=== PATIENT | female | born 1955 | race American Indian/Alaskan Native ===

== ENCOUNTER 2016-06-21 03:26 | Inpatient (IN) | payer MEDICARE ==
[2016-06-21 04:15] LABS: Basophils % (Auto) 1.1 % (0.0-1.8); Eosinophils % (Auto) 1.8 % (0.0-4.3); Hematocrit 42.6 % (30.3-42.9); Hemoglobin 14.1 gm/dl (10.1-14.3); Mean Corpuscular HGB Conc 33 % (30-34); Mean Corpuscular Hemoglobin 30 pg (28-32); Mean Corpuscular Volume 91 fl (79-97); Red Cell Distribution Width 13.6 % (13.2-15.2)
[2016-06-21] MEDS ORDERED: NITROSTAT SL ONE ×3 (04:22→04:33)
[2016-06-21 04:23] LABS: Platelet Count 227 K/mm3 (140-440)
[2016-06-21] MEDS ORDERED: ZOFRAN IV ONE ×4 (04:24→11:38)
--- NOTE | 2016-06-21 04:29 | Emergency Department Report ---
ED Chest Pain HPI - General Chief Complaint: Chest Pain Stated Complaint: CHEST PAIN Time Seen by Provider: 06/21/16 04:19 Source: patient, EMS Mode of arrival: Stretcher Limitations: No Limitations - History of Present Illness Initial Comments: 60-year-old female presents to the emergency department via EMS complaining of chest pain. Patient reports the onset of substernal chest pain at approximately midnight. Pain has been constant since onset and radiates through to her back. Pain is described as sharp in sensation. She reports associated shortness of breath, nausea, and vomiting. She also is complaining of generalized weakness. EMS gave the patient 324 mg of aspirin. There are no other complaints. MD Complaint: chest pain -: Sudden, During the night Time: 00:00 Onset: during rest Pain Location: substernal Pain Radiation: back Severity: severe Quality: sharp Consistency: constant Improves With: nothing Worsens With: nothing re: nausea, vomting, dyspnea Treatments Prior to Arrival: aspirin Aspirin use within the Past 7 Days: (0) No - Related Data Home Medications Medication Instructions Recorded Confirmed Last Taken Levothyroxine [Synthroid] 25 mcg PO QAM 06/21/16 06/21/16 06/21/16 glipiZIDE [Glucotrol] 20 mg PO BID 06/21/16 06/21/16 06/21/16 Allergies Allergy/AdvReac Type Severity Reaction Status Date / Time codeine Allergy Vomiting Verified 06/07/16 01:47 KHUSHI score - Khushi Score Age > 65: (0) No Aspirin use within the Past 7 Days: (0) No 3 or more CAD Risk Factors: (1) Yes 2 or more Angina events in past 24 hrs: (1) Yes Known CAD with more than 50% Stenosis: (0) No Elevated Cardiac Markers: (0) No ST Deviation Greater than 0.5mm: (0) No KHUSHI Score: 2 ED Review of Systems ROS: Stated complaint: CHEST PAIN Other details as noted in HPI Comment: All other systems reviewed and negative Constitutional: weakness Respiratory: shortness of breath Cardiovascular: chest pain Gastrointestinal: nausea, vomiting ED Past Medical Hx - Past Medical History Previous Medical History?: Yes Hx Hypertension: Yes Hx Congestive Heart Failure: No Hx Diabetes: Yes Hx GERD: Yes Hx Arthritis: Yes Hx Asthma: No Hx COPD: No Additional medical history: THYROID - Surgical History Past Surgical History?: Yes Hx Cholecystectomy: Yes - Family History Family history: no significant - Social History Smoking Status: Unknown if ever smoked Substance Use Type: None - Medications Home Medications: Home Medications Medication Instructions Recorded Confirmed Last Taken Type Levothyroxine [Synthroid] 25 mcg PO QAM 06/21/16 06/21/16 06/21/16 History glipiZIDE [Glucotrol] 20 mg PO BID 06/21/16 06/21/16 06/21/16 History ED Physical Exam - General Limitations: No Limitations General appearance: alert, in distress (mild distress secondary to pain and nausea) - Head Head exam: Present: atraumatic, normocephalic - Eye Eye exam: Present: normal appearance, PERRL, EOMI - ENT ENT exam: Present: normal exam, normal orophraynx, mucous membranes moist - Neck Neck exam: Present: normal inspection, full ROM. Absent: tenderness - Respiratory Respiratory exam: Present: normal lung sounds bilaterally. Absent: respiratory distress - Cardiovascular Cardiovascular Exam: Present: regular rate, normal rhythm, normal heart sounds - GI/Abdominal GI/Abdominal exam: Present: soft, normal bowel sounds. Absent: distended, tenderness - Extremities Exam Extremities exam: Present: normal inspection, full ROM. Absent: tenderness - Back Exam Back exam: Present: normal inspection, full ROM. Absent: tenderness - Neurological Exam Neurological exam: Present: alert, oriented X3. Absent: motor sensory deficit - Skin Skin exam: Present: warm, dry, intact ED Course Vital Signs 06/21/16 06/21/16 06/21/16 03:36 03:40 03:50 Pulse Rate 54 L 60 66 Respiratory 20 14 Rate Blood Pressure 162/82 162/82 Blood Pressure [Right] O2 Sat by Pulse 100 100 Oximetry 06/21/16 06/21/16 06/21/16 04:01 04:10 04:20 Pulse Rate 62 62 71 Respiratory 15 15 25 H Rate Blood Pressure 154/57 162/82 163/79 Blood Pressure [Right] O2 Sat by Pulse 100 100 100 Oximetry 06/21/16 06/21/16 06/21/16 04:30 04:40 04:46 Pulse Rate 71 69 62 Respiratory 19 14 20 Rate Blood Pressure 130/64 130/64 Blood Pressure 130/64 [Right] O2 Sat by Pulse 100 100 100 Oximetry 06/21/16 06/21/16 04:50 05:00 Pulse Rate 69 79 Respiratory 17 20 Rate Blood Pressure 138/47 145/32 Blood Pressure [Right] O2 Sat by Pulse 100 100 Oximetry - Reevaluation(s) Reevaluation #1: 06/21/16 05:24 Old records reviewed including previous admission for similar complaints. Patient underwent a nuclear stress test at that time, which was read as negative. ED Medical Decision Making - Lab Data Result diagrams: 06/21/16 03:57 06/21/16 03:57 - EKG Data -: EKG Interpreted by Me EKG shows normal: sinus rhythm, axis, intervals, QRS complexes Rate: bradycardia - EKG Data When compared to previous EKG there are: changes noted Interpretation: other (flipped T waves in leads 1, aVL, V1, V2, and V3. These changes are new compared to ECG dated 06/07/2016.) - Radiology Data Radiology results: image reviewed interpreted by me: Chest x-ray shows no acute cardiopulmonary abnormality. - Medical Decision Making Lab and imaging results reviewed and discussed with the patient. Patient is continuing to have chest pain despite supplemental nitroglycerin. Giving IV morphine. Due to the patient's persistent pain and new EKG changes, I have spoken with Dr. Hodgson, radiology. Patient is to be admitted by the hospitalist. - Differential Diagnosis ACS, atypical chest pain, GERD Critical care attestation.: If time is entered above; I have spent that time in minutes in the direct care of this critically ill patient, excluding procedure time. ED Disposition Clinical Impression: Chest pain Qualifiers: Chest pain type: precordial chest pain Qualified Code(s): R07.2 - Precordial pain Disposition: OP ADMITTED IP TO THIS HOSP Is pt being admited?: Yes Condition: Stable Instructions: Chest Pain (ED) Referrals: PRIMARY CARE, [Primary Care Provider] - 3-5 Days Time of Disposition: 05:25
[2016-06-21 04:34] LABS: Anion Gap 22 mmol/L; Blood Urea Nitrogen 17 mg/dL (7-17); Calcium 9.1 mg/dL (8.4-10.2); Carbon Dioxide 22 mmol/L (22-30); Chloride 99.5 mmol/L (98-107); Glucose 308 mg/dL (65-100); Potassium 4.1 mmol/L (3.6-5.0); Sodium 139 mmol/L (137-145)
[2016-06-21] MEDS ORDERED: MORPHINE IV ONE ×2 (05:06)
[2016-06-21] MEDS ORDERED: MILK OF MAGNESIA PO PRN (06:02)
[2016-06-21] MEDS ORDERED: MORPHINE IV PRN (06:02)
[2016-06-21] MEDS ORDERED: D50W (25GM) IV PRN (06:02)
[2016-06-21] MEDS ORDERED: DULCOLAX PR PRN (06:02)
[2016-06-21] MEDS ORDERED: TYLENOL PO PRN (06:02)
[2016-06-21] MEDS ORDERED: ZOFRAN IV PRN (06:02)
--- NOTE | 2016-06-21 06:05 | Admit Criteria Form ---
Admission Criteria Documentation: CHEST PAIN Clinical Indications for Admission to Inpatient Care (Place 'X' for any and all applicable criteria): Admission is indicated for chest pain and ANY ONE of the following(1)(2)(3)(4)(5 ): [ ]I. Angina with acute coronary syndrome (Also use Myocardial Infarction or Angina guideline) [ ]II. Hemodynamic instability [X ]III. Angina needing acute intervention as indicated by ALL of the following (11)(12): [ X]a) Unstable angina is present as indicated by angina that is ANY ONE of the following: [ ]i) New onset [ ]ii) Nocturnal [X ]iii) Prolonged at rest [ ]iv) Progressive [X ]b) Angina warrants acute intervention as indicated by ANY ONE of the following: [ ]i) Recurrent angina (e.g, not responding as previously to treatment) [ ]ii) Angina at rest or with low-level activities despite initial medical therapy [ ]iii) New or presumably new ST-segment depression on ECG [ ]iv) Signs or symptoms of heart failure (eg, dyspnea, pulmonary edema) [ ]v) New or worsening mitral regurgitation [ ]vi) Hemodynamic instability [ ]vii) Dangerous arrhythmia (eg, sustained ventricular tachycardia) [ ]viii) History of percutaneous coronary intervention within 6 months [ ]ix) History of coronary artery bypass graft surgery [ ]x) KHUSHI risk score of 2 or greater[A] [X ]xi) History of Diabetes(14) [ ]xii) High-risk cardiac ischemia findings on noninvasive testing (e.g, echocardiogram, treadmill testing, nuclear scan) [ ]xiii) Chronic renal insufficiency (ie, estimated GFR less than 60 mL/min/1.732m) [ ]xiv) Left ventricular ejection fraction less than 40% [ ]IV. Evidence of WA (eg, cardiac biomarkers positive, ST-segment elevation on ECG) also use Myocardial Infarction Criteria Form. [ ]V. Pulmonary edema [ ]. Respiratory distress [ ]VII. Chest pain indicative of serious diagnosis other than coronary artery disease (eg, aortic dissection) [ ]VIII. Contraindications and/or Inappropriate clinical situations for Observational Care in patients with Chest Pain, when ANY ONE of the following is required: [ ]a) Patient with risk factor for pulmonary embolism, acute coronary syndrome and myocardial infarction (18) [ ]b) Patient with Pulmonary embolism require an average LOS of 4.3 days, therefore emergency department observation management is inappropriate 18,23 [ ]c) Painful condition/s in the elderly, have the highest rate of recidivism after emergency department observation management (10.8%) 20,21,22 [ ]d) Elevated cardiac biomarker requires intensive and exhaustive care (19) [ ]IX. General contraindications and/or Inappropriate clinical situations for Observational Care in patients with Chest Pain, when ANY ONE of the following is required: [ ]a) Prediction of prolongation of LOS based on ANY ONE of the following may be considered as a contraindication for observational care 2, 3, 4, 5, 6, 7, 8, 9, 10, 11 [ ]i) Age > 65 yrs. [ ]ii) Patient arriving by ambulance [ ]iii) Patient with high acuity [ ]iv) Patient requiring vital sign monitoring [ ]v) Patient on IV medication [ ]b) Systolic blood pressures 180mmHg 3,12 [ ]c) Patient with altered mental status including delirium and other alteration of consciousness, (3) [ ]d) Patient whose discharge disposition will be to a fdc home or rehabilitation home should not be managed in Emergency Department Observation Unit. CMS rule requires 3 days hospital stay before such placement. 3,13 [ ]e) Patient with failure to thrive due to broad array of etiologies 3,16,17 [ ]f) Inability to ambulate 3,14 Extended stay beyond goal length of stay may be needed for (1)(28): [ ]a) Specific condition diagnosed after evaluation (eg, pulmonary embolism, aortic dissection) [ ]b) Unstable angina [ ]c) Continued suspicion of acute coronary syndrome with inability to complete needed cardiac evaluation (eg, patient clinically unable to undergo stress testing) [ ]d) Myocardial infarction (Contents from ANGINA and CHEST PAIN clinical indications for admission to inpatient care have been integrated in this form) The original [employer] content created by [employer] has been revised. The portions of the content which have been revised are identified through the use of italic text or in bold, and [email or web address] has neither reviewed nor approved the modified material. All other unmodified content is copyright [employer]. Please see references footnoted in the original [email or web address] edition 2016 Admission Criteria Met: Yes
--- NOTE | 2016-06-21 06:08 | History and Physical Report ---
History of Present Illness Date of examination: 06/21/16 History of present illness: A 60-year-old woman with history of hypertension, diabetes, tobacco abuse comes emergency room with complaints of chest pain. Pain is in the epigastric area which he describes a dull, constant, intensity 7/10, radiating to the back. She cannot identify exacerbating or relieving factors. Admits to multiple episodes of nausea vomiting, shortness breath, diaphoresis or palpitation. Patient had a stress test in May which was negative Patient denies cough, abdominal pain, hematochezia, dysuria, frequency, focal weakness, dysarthria, fever chills, polydipsia polyuria, hot or cold intolerance , easy bruisability, or rash or bleeding from mucosal membrane, rhinorrhea, epistaxis, earache, tinnitus, blurry vision, eye discharge, anxiety, depression. Other review of systems negative PAST SURGICAL HISTORY: Cholecystectomy SOCIAL HISTORY: Smoke a pack a day, social use, no drugs FAMILY HISTORY: Hypertension Medications and Allergies Allergies Allergy/AdvReac Type Severity Reaction Status Date / Time codeine Allergy Vomiting Verified 06/07/16 01:47 Home Medications Medication Instructions Recorded Confirmed Last Taken Type Levothyroxine [Synthroid] 25 mcg PO QAM 06/21/16 06/21/16 06/21/16 History glipiZIDE [Glucotrol] 20 mg PO BID 06/21/16 06/21/16 06/21/16 History Exam - Physical Exam Narrative exam: Gen. appearance: Patient lying in bed, no apparent distress HEENT: Normocephalic, atraumatic, pupils equally round and reactive to light, extraocular movement intact, and no sclericterus,. No JVD or thyromegaly or nodule,neck supple, no carotid bruit ,mucous membranes moist, no exudate or erythema Heart: S1, S2, regular rate and rhythm Lungs: Clear to auscultation bilaterally, breathing comfortable Abdomen: Positive bowel sounds, nontender, nondistended, no organomegaly Extremity: No edema, cyanosis, clubbing Skin: No rash, nodules, warm, dry Neuro: Oriented 3, cranial nerves II-12 intact, speech is fluent, motor and sensory intact - Constitutional Vitals: Temp Pulse Resp BP Pulse Ox 79 20 145/32 100 06/21/16 05:00 06/21/16 05:00 06/21/16 05:00 06/21/16 05:00 Results - Labs CBC & Chem 7: 06/24/16 04:49 06/24/16 04:49 Labs: Abnormal lab results 06/21/16 06/21/16 Range/Units 03:57 03:57 [place] % (Auto) 8.9 H (0.0-7.3) % [place] # 1.0 H (0.0-0.8) K/mm3 Creatinine 0.5 L (0.7-1.2) mg/dL Glucose 308 H (65-100) mg/dL - Imaging and Cardiology EKG: image reviewed Chest x-ray: image reviewed Assessment and Plan Unstable angina Hypertension Diabetes Admits medicine Check cardiac enzymes, consult cardiology Start aspirin, IV morphine, IV fluids, DVT prophylaxis
[2016-06-21] MEDS ORDERED: NACL 0.45% 1000 ML 1,000 ML IV SCH (07:00)
--- NOTE | 2016-06-21 09:14 | XRay Report ---
Single view chest: Compared to 06/07/16. History: Chest pain. Findings: Normal cardiomediastinal silhouette. Trachea is midline. No consolidation, pneumothorax or pleural effusion. Impression: No acute cardiopulmonary findings.
[2016-06-21] MEDS: NOVOLOG SUB-Q SCH ×4 (09:18→21:54)
[2016-06-21] MEDS: LOVENOX SUB-Q SCH (11:03)
--- NOTE | 2016-06-21 11:59 | Consultation ---
History of Present Illness Consult date: 06/21/16 Requesting physician: JUDITH THOMAS Consult reason: chest pain History of present illness: The patient is a 60 year old female with a history of hypertension, diabetes, hyperlipidemia, tobacco use who presented with complaints of substernal chest pain with radiation to her back that started last night around midnight. She describes the pain as "pressure." Approximately one hour after the pain started , she developed severe nausea and vomiting. She also reports some diarrhea. Troponin negative x 2. She was just admitted to [facility] 2 weeks ago for chest pain and had a negative stress test. Echo showed EF 55-60%. Past History Past Medical History: arthritis, diabetes, hypertension, hyperlipidemia Past Surgical History: cholecystectomy Social history: smoking (1 PPD). denies: alcohol abuse, prescription drug abuse , IV drug use, full code Family history: CAD Medications and Allergies Allergies Allergy/AdvReac Type Severity Reaction Status Date / Time codeine Allergy Vomiting Verified 06/07/16 01:47 Home Medications Medication Instructions Recorded Confirmed Last Taken Type Levothyroxine [Synthroid] 25 mcg PO QAM 06/21/16 06/21/16 06/21/16 History glipiZIDE [Glucotrol] 20 mg PO BID 06/21/16 06/21/16 06/21/16 History Active Meds: Active Medications Acetaminophen (Tylenol) 650 mg PO Q4H PRN PRN Reason: Pain MILD(1-3)/Fever >100.5/THOMPSON Aspirin (Aspirin) 325 mg PO QDAY MAHOGANY Bisacodyl (Dulcolax) 10 mg MD QDAY PRN PRN Reason: Constipation unrelieved by MOM Dextrose (D50w (25gm)) 50 ml IV PRN PRN PRN Reason: Hypoglycemia Enoxaparin Sodium (Lovenox) 40 mg SUB-Q QDAY MAHOGANY Last Admin: 06/21/16 11:03 Dose: 40 mg Sodium Chloride (Nacl 0.45% 1000 Ml) 1,000 mls @ 75 mls/hr IV DIRECT MAHOGANY Last Admin: 06/21/16 08:59 Dose: 75 mls/hr Insulin Aspart (Novolog) 0 units SUB-Q ACHS MAHOGANY PRN Reason: Protocol Last Admin: 06/21/16 11:53 Dose: 6 units Magnesium Hydroxide (Milk Of Magnesia) 30 ml PO Q4H PRN PRN Reason: Constipation Morphine Sulfate (Morphine) 2 mg IV Q4H PRN PRN Reason: Pain, Moderate (4-6) Ondansetron HCl (Zofran) 4 mg IV Q8H PRN PRN Reason: N/V unrelieved by Reglan Review of Systems Constitutional: no fever, no chills Ears, nose, mouth and throat: no nasal congestion, no nasal discharge, no sinus pressure Cardiovascular: chest pain, shortness of breath, no palpitations Respiratory: shortness of breath, no cough, no congestion, no wheezing Gastrointestinal: nausea, vomiting, diarrhea, no abdominal pain, no constipation Genitourinary Female: no dysuria, no urgency Musculoskeletal: no neck stiffness, no neck pain, no myalgias Integumentary: no rash, no pruritis Neurological: no parathesias, no numbness, no tingling, no headaches Endocrine: no cold intolerance, no heat intolerance Hematologic/Lymphatic: no easy bruising, no easy bleeding Allergic/Immunologic: no urticaria, no wheezing Physical Examination Last Vital Signs Temp 98.0 F 06/21/16 09:05 Pulse 55 L 06/21/16 12:22 Resp 20 06/21/16 12:22 BP 164/77 06/21/16 12:22 Pulse Ox 100 06/21/16 12:22 General appearance: no acute distress HEENT: Positive: PERRL, Normocephaly, Mucus Membranes Moist Neck: Positive: neck supple, trachea midline Cardiac: Positive: Reg Rate and Rhythm, S1/S2 Lungs: Positive: clear to auscultation Neuro: Positive: Grossly Intact Abdomen: Positive: Soft, Active Bowel Sounds. Negative: Tender Skin: Positive: Clear. Negative: Rash Extremities: Present: normal. Absent: edema Results 06/21/16 03:57 06/21/16 03:57 - Imaging and Cardiology Echo: report reviewed (05/2016: EF 55-60%) EKG: image reviewed EKG interpretations - Telemetry EKG Rhythm: Sinus Rhythm - EKG Sinus rhythms and dysrhythmias: sinus rhythm Repolarization changes or abnormalities: ST or T wave suggestive of ischemia Assessment and Plan Chest pain troponin negative x 2 EKG: inverted T waves in leads 1, aVL, V1, V2, and V3, will repeat Echo 05/2016: EF 55-60% stress MPI 05/2016: no ischemia, EF 62% Nausea and vomiting continue antiemetics Hypertension Diabetes Hyperlipidemia Tobacco abuse Although pt. had a negative stress test 2 months ago, given recurrent chest pain and EKG changes, will tentatively plan for left heart cath on Fri., . The patient has been seen in conjunction with Dr. Coon who agrees with the assessment and plan of care. Thank you Dr. Valle for allowing us to participate in the care of this patient.
[2016-06-21 12:53] LABS: Creatine Kinase MB 11.4 ng/mL (0.0-4.0)
[2016-06-21] MEDS: REGLAN IV PRN (13:04)
[2016-06-21] MEDS: PROTONIX IV SCH ×2 (14:44→21:54)
--- NOTE | 2016-06-21 15:54 | Event Note ---
Date: 06/21/16 Patient seen and examined, admitted this morning with chest pain along with intractable nausea and vomiting. We'll continue current plan and management as dictated in H&P. Plan for cardiac cath on Friday.
--- NOTE | 2016-06-21 16:33 | Event Note ---
Date: 06/21/16 Repeat EKG shows resolution of anterior changes and new inverted t-waves in inferolateral leads. No chest pain currently. If nausea and vomiting improves, may consider starting beta tiffany and oral nitrates.
[2016-06-21 16:40] LABS: Creatine Kinase MB 69.6 ng/mL (0.0-4.0)
[2016-06-21] MEDS: D5W/NS W/KCL 20MEQ 20 MEQ/1,000 ML BAG IV SCH (17:34)
[2016-06-21] MEDS: AMBIEN PO PRN (21:53)
[2016-06-22 05:33] LABS: Basophils % (Auto) 0.4 % (0.0-1.8); Eosinophils % (Auto) 0.1 % (0.0-4.3); Hematocrit 39.9 % (30.3-42.9); Hemoglobin 13.2 gm/dl (10.1-14.3); Mean Corpuscular HGB Conc 33 % (30-34); Mean Corpuscular Hemoglobin 30 pg (28-32); Mean Corpuscular Volume 92 fl (79-97); Platelet Count 306 K/mm3 (140-440); Red Blood Count 4.35 M/mm3 (3.65-5.03); Red Cell Distribution Width 13.9 % (13.2-15.2); White Blood Count 14.9 K/mm3 (4.5-11.0)
[2016-06-22 05:55] LABS: Anion Gap 20 mmol/L; Blood Urea Nitrogen 11 mg/dL (7-17); Calcium 8.6 mg/dL (8.4-10.2); Carbon Dioxide 20 mmol/L (22-30); Chloride 99.2 mmol/L (98-107); Glucose 262 mg/dL (65-100); Sodium 135 mmol/L (137-145)
[2016-06-22] MEDS: D5W/NS W/KCL 20MEQ 20 MEQ/1,000 ML BAG IV SCH (06:44)
[2016-06-22] MEDS: REGLAN IV PRN ×2 (06:44→14:26)
[2016-06-22] MEDS: LOVENOX SUB-Q SCH (09:24)
[2016-06-22] MEDS: ASPIRIN PO SCH (09:24)
[2016-06-22] MEDS: PROTONIX IV SCH ×2 (09:25→22:29)
[2016-06-22] MEDS ORDERED: HEPARIN 10,000 UNITS/10 ML IV ONE (10:14)
--- NOTE | 2016-06-22 10:39 | Progress Note ---
Assessment and Plan This is a 60 AAF: NSTEMI Echo 05/2016: EF 55-60% stress MPI 05/2016: no ischemia, EF 62% cont asa add heparin gtt, bb, statin cp-free and asx at this time Hypertension Diabetes Hyperlipidemia Tobacco abuse [facility] for friday morning Risks, benefits, and alternatives discussed at length with patient. She would like to proceed. Subjective Date of service: 06/22/16 Interval history: no complaints today no cp, sob, n/v feels better Objective Vital Signs Temp Pulse Pulse Resp BP Pulse Ox 06/22/16 10:00 99 06/22/16 06:03 68 06/22/16 06:00 99 F 65 20 156/68 97 06/22/16 00:53 99.2 F 69 21 141/65 100 06/21/16 20:00 99.1 F 67 20 166/71 98 06/21/16 19:36 98 06/21/16 17:52 100 06/21/16 16:00 98.5 F 68 20 186/81 100 06/21/16 12:22 55 L 20 164/77 100 06/21/16 11:30 59 L 18 150/69 100 - Physical Examination HEENT: Positive: PERRL, Normocephaly, Mucus Membranes Moist Neck: Positive: neck supple, trachea midline Neuro: Positive: Grossly Intact Abdomen: Positive: Soft, Active Bowel Sounds. Negative: Tender Skin: Positive: Clear. Negative: Rash Extremities: Present: normal. Absent: edema - Labs and Meds Cardiac Enzymes 06/21/16 06/21/16 Range/Units 09:16 16:05 CK-MB (CK-2) 11.4 H 69.6 H (0.0-4.0) ng/mL Lipids 06/21/16 Range/Units 16:05 Triglycerides 121 (2-149) mg/dL Cholesterol 194 (50-199) mg/dL HDL Cholesterol 47 (40-59) mg/dL Cholesterol/HDL Ratio 4.12 % CBC 06/22/16 Range/Units 04:31 WBC 14.9 H (4.5-11.0) K/mm3 RBC 4.35 (3.65-5.03) M/mm3 Hgb 13.2 (10.1-14.3) gm/dl Hct 39.9 (30.3-42.9) % Plt Count 306 (140-440) K/mm3 Lymph # 2.1 (1.2-5.4) K/mm3 [place] # 1.7 H (0.0-0.8) K/mm3 Eos # 0.0 (0.0-0.4) K/mm3 Baso # 0.1 (0.0-0.1) K/mm3 Comprehensive Metabolic Panel 06/22/16 Range/Units 04:31 Sodium 135 L (137-145) mmol/L Potassium 4.0 (3.6-5.0) mmol/L Chloride 99.2 (98-107) mmol/L Carbon Dioxide 20 L (22-30) mmol/L BUN 11 (7-17) mg/dL Creatinine 0.5 L (0.7-1.2) mg/dL Glucose 262 H (65-100) mg/dL Calcium 8.6 (8.4-10.2) mg/dL - Imaging and Cardiology EKG: image reviewed Echo: report reviewed (05/2016: EF 55-60%) - EKG Sinus rhythms and dysrhythmias: sinus rhythm Repolarization changes or abnormalities: ST or T wave suggestive of ischemia
[2016-06-22 10:48] LABS: Hematocrit 38.4 % (30.3-42.9); Hemoglobin 12.9 gm/dl (10.1-14.3)
[2016-06-22 10:58] LABS: INR 1.06 (0.87-1.13)
[2016-06-22 10:59] LABS: Partial Thromboplastin Time 32.6 Sec. (24.2-36.6)
[2016-06-22] MEDS: HEPARIN/ 0.45% NACL-25,000 UNIT/500 ML 25,000 UNIT/500 ML BAG IV SCH ×2 (11:26→18:43)
[2016-06-22] MEDS: NOVOLOG SUB-Q SCH ×2 (15:25→22:28)
[2016-06-22] MEDS: ZESTRIL PO SCH (15:54)
--- NOTE | 2016-06-22 18:18 | Progress Note ---
Assessment and Plan Assessment and plan: NSTEMI * placed on heparin drip * cont to monitor troponin * placed on aspirin, statin and betablocker * plan for cardiac cath today Hypertension * cont to monitor * on metoprolol and lisinopril DM type 2 * cont on SSI * clear liquid diet now N/V * could be due to gastroparesis * clear liquid for now * prn zofran, will add carafate and reglan History Interval history: pt seen and examined, no chest pain c/o N/V, no abdominal pain Hospitalist Physical - Constitutional Vitals: Temp Pulse Resp BP Pulse Ox 97.6 F 68 18 168/71 97 06/22/16 16:22 06/22/16 16:22 06/22/16 16:22 06/22/16 16:22 06/22/16 16:22 General appearance: Present: mild distress - EENT Eyes: Present: EOM intact ENT: hearing intact, clear oral mucosa, dentition normal - Neck Neck: Present: supple, normal ROM - Respiratory Respiratory effort: normal Respiratory: bilateral: CTA - Cardiovascular Rhythm: regular Heart Sounds: Present: S1 & S2 - Extremities Extremities: no ischemia, No edema - Abdominal General gastrointestinal: soft, non-tender, non-distended, normal bowel sounds - Integumentary Integumentary: Present: warm, dry - Psychiatric Psychiatric: appropriate mood/affect, intact judgment & insight - Neurologic Neurologic: no focal deficits, moves all extremities Results - Labs CBC & Chem 7: 06/22/16 10:34 06/22/16 04:31 Labs: Laboratory Last Values WBC 14.9 K/mm3 (4.5-11.0) H 06/22/16 04:31 RBC 4.35 M/mm3 (3.65-5.03) 06/22/16 04:31 Hgb 12.9 gm/dl (10.1-14.3) 06/22/16 10:34 Hct 38.4 % (30.3-42.9) 06/22/16 10:34 MCV 92 fl (79-97) 06/22/16 04:31 MCH 30 pg (28-32) 06/22/16 04:31 MCHC 33 % (30-34) 06/22/16 04:31 RDW 13.9 % (13.2-15.2) 06/22/16 04:31 Plt Count 301 K/mm3 (140-440) 06/22/16 10:34 Lymph % (Auto) 14.3 % (13.4-35.0) 06/22/16 04:31 [place] % (Auto) 11.7 % (0.0-7.3) H 06/22/16 04:31 Eos % (Auto) 0.1 % (0.0-4.3) 06/22/16 04:31 Baso % (Auto) 0.4 % (0.0-1.8) 06/22/16 04:31 Lymph # 2.1 K/mm3 (1.2-5.4) 06/22/16 04:31 [place] # 1.7 K/mm3 (0.0-0.8) H 06/22/16 04:31 Eos # 0.0 K/mm3 (0.0-0.4) 06/22/16 04:31 Baso # 0.1 K/mm3 (0.0-0.1) 06/22/16 04:31 Seg Neutrophils % 73.5 % (40.0-70.0) H 06/22/16 04:31 Seg Neutrophils # 10.9 K/mm3 (1.8-7.7) H 06/22/16 04:31 PT 13.7 Sec. (12.2-14.9) 06/22/16 10:38 INR 1.06 (0.87-1.13) 06/22/16 10:38 APTT 32.6 Sec. (24.2-36.6) 06/22/16 10:38 Heparin Anti-Xa Level 0.87 U.I./ml (0.3-0.7) H 06/22/16 17:12 Sodium 135 mmol/L (137-145) L 06/22/16 04:31 Potassium 4.0 mmol/L (3.6-5.0) 06/22/16 04:31 Chloride 99.2 mmol/L (98-107) 06/22/16 04:31 Carbon Dioxide 20 mmol/L (22-30) L 06/22/16 04:31 Anion Gap 20 mmol/L 06/22/16 04:31 BUN 11 mg/dL (7-17) 06/22/16 04:31 Creatinine 0.5 mg/dL (0.7-1.2) L 06/22/16 04:31 Estimated GFR > 60 ml/min 06/22/16 04:31 BUN/Creatinine Ratio 22.00 % 06/22/16 04:31 Glucose 262 mg/dL (65-100) H 06/22/16 04:31 POC Glucose 247 (70-105) H 06/22/16 11:46 Calcium 8.6 mg/dL (8.4-10.2) 06/22/16 04:31 Total Creatine Kinase 555 units/L (30-135) H 06/21/16 16:05 CK-MB (CK-2) 69.6 ng/mL (0.0-4.0) H 06/21/16 16:05 CK-MB (CK-2) Rel Index 12.5 (0-4) H 06/21/16 16:05 Troponin T 0.791 ng/mL (0.00-0.029) H* 06/22/16 17:12 Triglycerides 121 mg/dL (2-149) 06/21/16 16:05 Cholesterol 194 mg/dL (50-199) 06/21/16 16:05 LDL Cholesterol Direct 123 mg/dL (50-130) 06/21/16 16:05 HDL Cholesterol 47 mg/dL (40-59) 06/21/16 16:05 Cholesterol/HDL Ratio 4.12 % 06/21/16 16:05
[2016-06-22] MEDS ORDERED: COREG PO SCH (22:00)
[2016-06-23] MEDS: AMBIEN PO PRN ×2 (01:08→22:46)
[2016-06-23] MEDS: REGLAN IV PRN (01:08)
[2016-06-23] MEDS ORDERED: LOPRESSOR PO SCH (10:00)
[2016-06-23] MEDS: PROTONIX IV SCH ×2 (10:19→22:46)
[2016-06-23] MEDS: ASPIRIN PO SCH (10:19)
--- NOTE | 2016-06-23 10:32 | Progress Note ---
Assessment and Plan This is a 60 AAF: NSTEMI Echo 05/2016: EF 55-60% stress MPI 05/2016: no ischemia, EF 62% cont asa, heparin gtt, bb, statin cp-free and asx at this time Hypertension Diabetes Hyperlipidemia Tobacco abuse [facility] for friday morning Risks, benefits, and alternatives discussed at length with patient. She would like to proceed. Subjective Date of service: 06/23/16 Interval history: feels well no cp Objective Vital Signs Temp Pulse Pulse Pulse Resp BP BP 06/23/16 08:00 97.5 F L 58 L 20 06/23/16 06:53 98.7 F 60 20 06/22/16 22:00 59 L 06/22/16 20:00 98.1 F 69 18 06/22/16 16:22 97.6 F 68 18 06/22/16 15:54 180/78 06/22/16 11:07 98.6 F 71 16 196/85 06/22/16 10:00 60 60 20 BP Pulse Ox 06/23/16 08:00 121/64 99 06/23/16 06:53 125/71 06/22/16 22:00 06/22/16 20:00 149/73 98 06/22/16 16:22 168/71 97 06/22/16 15:54 06/22/16 11:07 99 06/22/16 10:00 99 - Physical Examination HEENT: Positive: PERRL, Normocephaly, Mucus Membranes Moist Neck: Positive: neck supple, trachea midline Neuro: Positive: Grossly Intact Abdomen: Positive: Soft, Active Bowel Sounds. Negative: Tender Skin: Positive: Clear. Negative: Rash Extremities: Present: normal. Absent: edema - Labs and Meds Coagulation 06/22/16 Range/Units 10:38 PT 13.7 (12.2-14.9) Sec. INR 1.06 (0.87-1.13) APTT 32.6 (24.2-36.6) Sec. CBC 06/22/16 Range/Units 10:34 Hgb 12.9 (10.1-14.3) gm/dl Hct 38.4 (30.3-42.9) % Plt Count 301 (140-440) K/mm3 - Imaging and Cardiology EKG: image reviewed Echo: report reviewed (05/2016: EF 55-60%) - EKG Sinus rhythms and dysrhythmias: sinus rhythm Repolarization changes or abnormalities: ST or T wave suggestive of ischemia
[2016-06-23] MEDS: NOVOLOG SUB-Q SCH ×5 (12:55→23:01)
[2016-06-23] MEDS: ZESTRIL PO SCH (13:18)
[2016-06-23] MEDS: D5W/NS W/KCL 20MEQ 20 MEQ/1,000 ML BAG IV SCH (13:19)
--- NOTE | 2016-06-23 14:54 | Progress Note ---
Assessment and Plan Assessment and plan: NSTEMI * placed on heparin drip * cont to monitor troponin * placed on aspirin, statin and betablocker * plan for cardiac cath tomorrow Hypertension * cont to monitor * on metoprolol and lisinopril DM type 2 * cont on SSI * advance to ADA diet N/V * could be due to gastroparesis * advance diet * prn zofran, cont protonix carafate and reglan History Interval history: pt seen and examined, no chest pain N/V resolved, no abdominal pain able to tolerate clear liquid diet Hospitalist Physical - Physical exam Narrative exam: General appearance: Present: mild distress - EENT Eyes: Present: EOM intact ENT: hearing intact, clear oral mucosa, dentition normal - Neck Neck: Present: supple, normal ROM - Respiratory Respiratory effort: normal Respiratory: bilateral: CTA - Cardiovascular Rhythm: regular Heart Sounds: Present: S1 & S2 - Extremities Extremities: no ischemia, No edema - Abdominal General gastrointestinal: soft, non-tender, non-distended, normal bowel sounds - Integumentary Integumentary: Present: warm, dry - Psychiatric Psychiatric: appropriate mood/affect, intact judgment & insight - Neurologic Neurologic: no focal deficits, moves all extremities - Constitutional Vitals: Temp Pulse Resp BP Pulse Ox 97.5 F L 58 L 20 121/64 99 06/23/16 08:00 06/23/16 08:00 06/23/16 08:00 06/23/16 08:00 06/23/16 08:00 General appearance: Present: mild distress Results - Labs CBC & Chem 7: 06/22/16 10:34 06/22/16 04:31 Labs: Laboratory Last Values WBC 14.9 K/mm3 (4.5-11.0) H 06/22/16 04:31 RBC 4.35 M/mm3 (3.65-5.03) 06/22/16 04:31 Hgb 12.9 gm/dl (10.1-14.3) 06/22/16 10:34 Hct 38.4 % (30.3-42.9) 06/22/16 10:34 MCV 92 fl (79-97) 06/22/16 04:31 MCH 30 pg (28-32) 06/22/16 04:31 MCHC 33 % (30-34) 06/22/16 04:31 RDW 13.9 % (13.2-15.2) 06/22/16 04:31 Plt Count 301 K/mm3 (140-440) 06/22/16 10:34 Lymph % (Auto) 14.3 % (13.4-35.0) 06/22/16 04:31 [place] % (Auto) 11.7 % (0.0-7.3) H 06/22/16 04:31 Eos % (Auto) 0.1 % (0.0-4.3) 06/22/16 04:31 Baso % (Auto) 0.4 % (0.0-1.8) 06/22/16 04:31 Lymph # 2.1 K/mm3 (1.2-5.4) 06/22/16 04:31 [place] # 1.7 K/mm3 (0.0-0.8) H 06/22/16 04:31 Eos # 0.0 K/mm3 (0.0-0.4) 06/22/16 04:31 Baso # 0.1 K/mm3 (0.0-0.1) 06/22/16 04:31 Seg Neutrophils % 73.5 % (40.0-70.0) H 06/22/16 04:31 Seg Neutrophils # 10.9 K/mm3 (1.8-7.7) H 06/22/16 04:31 PT 13.7 Sec. (12.2-14.9) 06/22/16 10:38 INR 1.06 (0.87-1.13) 06/22/16 10:38 APTT 32.6 Sec. (24.2-36.6) 06/22/16 10:38 Heparin Anti-Xa Level 0.27 U.I./ml (0.3-0.7) L 06/23/16 07:09 Sodium 135 mmol/L (137-145) L 06/22/16 04:31 Potassium 4.0 mmol/L (3.6-5.0) 06/22/16 04:31 Chloride 99.2 mmol/L (98-107) 06/22/16 04:31 Carbon Dioxide 20 mmol/L (22-30) L 06/22/16 04:31 Anion Gap 20 mmol/L 06/22/16 04:31 BUN 11 mg/dL (7-17) 06/22/16 04:31 Creatinine 0.5 mg/dL (0.7-1.2) L 06/22/16 04:31 Estimated GFR > 60 ml/min 06/22/16 04:31 BUN/Creatinine Ratio 22.00 % 06/22/16 04:31 Glucose 262 mg/dL (65-100) H 06/22/16 04:31 POC Glucose 205 (70-105) H 06/23/16 12:10 Calcium 8.6 mg/dL (8.4-10.2) 06/22/16 04:31 Total Creatine Kinase 555 units/L (30-135) H 06/21/16 16:05 CK-MB (CK-2) 69.6 ng/mL (0.0-4.0) H 06/21/16 16:05 CK-MB (CK-2) Rel Index 12.5 (0-4) H 06/21/16 16:05 Troponin T 0.789 ng/mL (0.00-0.029) H* 06/23/16 07:09 Triglycerides 121 mg/dL (2-149) 06/21/16 16:05 Cholesterol 194 mg/dL (50-199) 06/21/16 16:05 LDL Cholesterol Direct 123 mg/dL (50-130) 06/21/16 16:05 HDL Cholesterol 47 mg/dL (40-59) 06/21/16 16:05 Cholesterol/HDL Ratio 4.12 % 06/21/16 16:05
[2016-06-23] MEDS: HEPARIN/ 0.45% NACL-25,000 UNIT/500 ML 25,000 UNIT/500 ML BAG IV SCH (15:43)
[2016-06-23] MEDS: CARAFATE PO SCH ×3 (15:44→22:46)
[2016-06-24 05:18] LABS: Basophils % (Auto) 0.5 % (0.0-1.8); Eosinophils % (Auto) 1.6 % (0.0-4.3); Hemoglobin 11.9 gm/dl (10.1-14.3); Mean Corpuscular HGB Conc 34 % (30-34); Mean Corpuscular Hemoglobin 31 pg (28-32); Mean Corpuscular Volume 91 fl (79-97); Platelet Count 269 K/mm3 (140-440); Red Blood Count 3.86 M/mm3 (3.65-5.03); Red Cell Distribution Width 13.3 % (13.2-15.2); White Blood Count 8.1 K/mm3 (4.5-11.0)
[2016-06-24 05:37] LABS: Anion Gap 14 mmol/L; Blood Urea Nitrogen 10 mg/dL (7-17); Calcium 7.8 mg/dL (8.4-10.2); Carbon Dioxide 23 mmol/L (22-30); Chloride 108.6 mmol/L (98-107); Glucose 204 mg/dL (65-100); Potassium 3.6 mmol/L (3.6-5.0); Sodium 142 mmol/L (137-145)
[2016-06-24 05:40] LABS: INR 1.05 (0.87-1.13)
[2016-06-24] MEDS ORDERED: ASPIRIN ONE (07:50)
[2016-06-24] MEDS: SUBLIMAZE ONE ×2 (08:01→08:43)
[2016-06-24] MEDS: VERSED ONE ×2 (08:02→08:43)
[2016-06-24] MEDS: CALAN ONE ×2 (08:02→08:46)
[2016-06-24] MEDS: XYLOCAINE 2% INFILTRATI ONE ×2 (08:02→08:44)
[2016-06-24] MEDS: HEPARIN 10,000 UNITS/10 ML ONE ×2 (08:03→08:46)
[2016-06-24] MEDS: HEPARIN/NS 5000 UNIT/500ML(CATH LAB) 1,000 ML IR ONE ×2 (08:03→08:46)
[2016-06-24] MEDS: NITROGLYCERIN SYRINGE 3 ML ONE ×2 (08:04→08:46)
[2016-06-24] MEDS: NACL 0.9% 500 ML 500 ML ONE ×2 (08:05→08:46)
--- NOTE | 2016-06-24 08:47 | Progress Note ---
Assessment and Plan NSTEMI CP free and asx at this time continue ASA, statin Echo 05/2016: EF 55-60% stress MPI 05/2016: no ischemia, EF 62% await [facility] findings Hypertension Diabetes Hyperlipidemia Tobacco abuse Await left heart cath findings. The patient has been seen in conjunction with Dr. Pulliam who agrees with the assessment and plan of care. Subjective Date of service: 06/24/16 Principal diagnosis: NSTEMI Interval history: Awaiting left heart cath this morning. Objective Last Vital Signs Temp 99.2 F 06/24/16 05:00 Pulse 60 06/24/16 05:00 Resp 19 06/24/16 05:00 BP 106/56 06/24/16 05:00 Pulse Ox 98 06/24/16 05:00 - Physical Examination General: No Apparent Distress HEENT: Positive: PERRL, Normocephaly, Mucus Membranes Moist Neck: Positive: neck supple, trachea midline Cardiac: Positive: Reg Rate and Rhythm, S1/S2 Lungs: Positive: clear to auscultation Neuro: Positive: Grossly Intact Abdomen: Positive: Soft, Active Bowel Sounds. Negative: Tender Skin: Positive: Clear. Negative: Rash Extremities: Present: normal. Absent: edema - Labs and Meds Coagulation 06/24/16 Range/Units 04:49 PT 13.6 (12.2-14.9) Sec. INR 1.05 (0.87-1.13) APTT 30.0 (24.2-36.6) Sec. CBC 06/24/16 Range/Units 04:49 WBC 8.1 (4.5-11.0) K/mm3 RBC 3.86 (3.65-5.03) M/mm3 Hgb 11.9 (10.1-14.3) gm/dl Hct 35.0 (30.3-42.9) % Plt Count 269 (140-440) K/mm3 Lymph # 2.5 (1.2-5.4) K/mm3 [place] # 1.1 H (0.0-0.8) K/mm3 Eos # 0.1 (0.0-0.4) K/mm3 Baso # 0.0 (0.0-0.1) K/mm3 Comprehensive Metabolic Panel 06/24/16 Range/Units 04:49 Sodium 142 D (137-145) mmol/L Potassium 3.6 (3.6-5.0) mmol/L Chloride 108.6 H (98-107) mmol/L Carbon Dioxide 23 (22-30) mmol/L BUN 10 (7-17) mg/dL Creatinine 0.5 L (0.7-1.2) mg/dL Glucose 204 H (65-100) mg/dL Calcium 7.8 L (8.4-10.2) mg/dL - Imaging and Cardiology EKG: image reviewed Echo: report reviewed (05/2016: EF 55-60%) - Telemetry EKG Rhythm: Sinus Rhythm - EKG Sinus rhythms and dysrhythmias: sinus rhythm Repolarization changes or abnormalities: ST or T wave suggestive of ischemia
[2016-06-24] MEDS ORDERED: WATER FOR INJ (PF) 10 ML ONE (08:48)
[2016-06-24] MEDS ORDERED: NACL 0.9% 100 ML ONE (08:51)
[2016-06-24] MEDS: ANGIOMAX IV ONE ×2 (09:04→09:06)
[2016-06-24] MEDS ORDERED: ALUM-MAG HYDROX-SIMETH 200-200-20MG/5ML ONE (09:12)
[2016-06-24] MEDS ORDERED: BRILINTA ONE (09:12)
[2016-06-24] MEDS: CARAFATE PO SCH ×4 (09:52→21:59)
[2016-06-24] MEDS: NOVOLOG SUB-Q SCH ×4 (09:52→23:05)
[2016-06-24] MEDS: ZESTRIL PO SCH (10:48)
[2016-06-24] MEDS: PROTONIX IV SCH (10:48)
[2016-06-24] MEDS: NACL 0.9% 1000 ML 1,000 ML IV SCH (12:26)
--- NOTE | 2016-06-24 16:25 | Progress Note ---
Assessment and Plan Assessment and plan: A 60-year-old woman with history of hypertension, diabetes, tobacco abuse comes emergency room with complaints of chest pain. NSTEMI * s/p PCI of RCA with LALO * cont aspirin, statin, brilinita 90mg bid and low dose imdur for small vessel disease in distal RCA Hypertension * cont to monitor * on lisinopril and imdur DM type 2 * cont on SSI * cont ADA diet N/V * could be due to gastroparesis * advance diet * prn zofran, cont protonix carafate and reglan History Interval history: pt seen and examined, no chest pain s/p cardiac cath today, had placement of LALO to RCA She tolerated the procedure c/o nausea today Hospitalist Physical - Physical exam Narrative exam: General appearance: Present: mild distress - EENT Eyes: Present: EOM intact ENT: hearing intact, clear oral mucosa, dentition normal - Neck Neck: Present: supple, normal ROM - Respiratory Respiratory effort: normal Respiratory: bilateral: CTA - Cardiovascular Rhythm: regular Heart Sounds: Present: S1 & S2 - Extremities Extremities: no ischemia, No edema - Abdominal General gastrointestinal: soft, non-tender, non-distended, normal bowel sounds - Integumentary Integumentary: Present: warm, dry - Psychiatric Psychiatric: appropriate mood/affect, intact judgment & insight - Neurologic Neurologic: no focal deficits, moves all extremities - Constitutional Vitals: Temp Pulse Resp BP Pulse Ox 99.2 F 63 19 138/77 98 06/24/16 05:00 06/24/16 10:00 06/24/16 05:00 06/24/16 10:48 06/24/16 05:00 General appearance: Present: mild distress Results - Labs CBC & Chem 7: 06/24/16 04:49 06/24/16 04:49 Labs: Laboratory Last Values WBC 8.1 K/mm3 (4.5-11.0) 06/24/16 04:49 RBC 3.86 M/mm3 (3.65-5.03) 06/24/16 04:49 Hgb 11.9 gm/dl (10.1-14.3) 06/24/16 04:49 Hct 35.0 % (30.3-42.9) 06/24/16 04:49 MCV 91 fl (79-97) 06/24/16 04:49 MCH 31 pg (28-32) 06/24/16 04:49 MCHC 34 % (30-34) 06/24/16 04:49 RDW 13.3 % (13.2-15.2) 06/24/16 04:49 Plt Count 269 K/mm3 (140-440) 06/24/16 04:49 Lymph % (Auto) 30.6 % (13.4-35.0) 06/24/16 04:49 [place] % (Auto) 13.6 % (0.0-7.3) H 06/24/16 04:49 Eos % (Auto) 1.6 % (0.0-4.3) 06/24/16 04:49 Baso % (Auto) 0.5 % (0.0-1.8) 06/24/16 04:49 Lymph # 2.5 K/mm3 (1.2-5.4) 06/24/16 04:49 [place] # 1.1 K/mm3 (0.0-0.8) H 06/24/16 04:49 Eos # 0.1 K/mm3 (0.0-0.4) 06/24/16 04:49 Baso # 0.0 K/mm3 (0.0-0.1) 06/24/16 04:49 Seg Neutrophils % 53.7 % (40.0-70.0) 06/24/16 04:49 Seg Neutrophils # 4.4 K/mm3 (1.8-7.7) 06/24/16 04:49 PT 13.6 Sec. (12.2-14.9) 06/24/16 04:49 INR 1.05 (0.87-1.13) 06/24/16 04:49 APTT 30.0 Sec. (24.2-36.6) 06/24/16 04:49 Heparin Anti-Xa Level < 0.10 U.I./ml (0.3-0.7) L 06/24/16 13:03 Sodium 142 mmol/L (137-145) D 06/24/16 04:49 Potassium 3.6 mmol/L (3.6-5.0) 06/24/16 04:49 Chloride 108.6 mmol/L (98-107) H 06/24/16 04:49 Carbon Dioxide 23 mmol/L (22-30) 06/24/16 04:49 Anion Gap 14 mmol/L 06/24/16 04:49 BUN 10 mg/dL (7-17) 06/24/16 04:49 Creatinine 0.5 mg/dL (0.7-1.2) L 06/24/16 04:49 Estimated GFR > 60 ml/min 06/24/16 04:49 BUN/Creatinine Ratio 20.00 % 06/24/16 04:49 Glucose 204 mg/dL (65-100) H 06/24/16 04:49 POC Glucose 189 (70-105) H 06/23/16 21:16 Calcium 7.8 mg/dL (8.4-10.2) L 06/24/16 04:49 Total Creatine Kinase 555 units/L (30-135) H 06/21/16 16:05 CK-MB (CK-2) 69.6 ng/mL (0.0-4.0) H 06/21/16 16:05 CK-MB (CK-2) Rel Index 12.5 (0-4) H 06/21/16 16:05 Troponin T 0.789 ng/mL (0.00-0.029) H* 06/23/16 07:09 Triglycerides 121 mg/dL (2-149) 06/21/16 16:05 Cholesterol 194 mg/dL (50-199) 06/21/16 16:05 LDL Cholesterol Direct 123 mg/dL (50-130) 06/21/16 16:05 HDL Cholesterol 47 mg/dL (40-59) 06/21/16 16:05 Cholesterol/HDL Ratio 4.12 % 06/21/16 16:05
[2016-06-24] MEDS: AMBIEN PO PRN (21:59)
[2016-06-24] MEDS: BRILINTA PO SCH (21:59)
[2016-06-25] MEDS: NACL 0.9% 1000 ML 1,000 ML IV SCH (06:17)
[2016-06-25 06:24] LABS: Basophils % (Auto) 0.5 % (0.0-1.8); Eosinophils % (Auto) 2.8 % (0.0-4.3); Hematocrit 30.7 % (30.3-42.9); Hemoglobin 10.5 gm/dl (10.1-14.3); Mean Corpuscular HGB Conc 34 % (30-34); Mean Corpuscular Hemoglobin 31 pg (28-32); Mean Corpuscular Volume 90 fl (79-97); Platelet Count 246 K/mm3 (140-440); Red Cell Distribution Width 13.5 % (13.2-15.2); White Blood Count 7.5 K/mm3 (4.5-11.0)
[2016-06-25 06:29] LABS: Creatine Kinase MB 3.2 ng/mL (0.0-4.0)
[2016-06-25 06:35] LABS: Anion Gap 16 mmol/L; Blood Urea Nitrogen 7 mg/dL (7-17); Calcium 7.9 mg/dL (8.4-10.2); Carbon Dioxide 22 mmol/L (22-30); Chloride 109.8 mmol/L (98-107); Creatine Kinase 108 units/L (30-135); Glucose 118 mg/dL (65-100); Potassium 3.6 mmol/L (3.6-5.0); Sodium 144 mmol/L (137-145)
[2016-06-25] MEDS: NOVOLOG SUB-Q SCH (08:00)
[2016-06-25] MEDS: CARAFATE PO SCH ×2 (08:00→10:43)
--- NOTE | 2016-06-25 08:09 | XRay Report ---
AP CHEST: HISTORY: chest pain AP view of the chest demonstrates a normal mediastinal and cardiac contour with clear lungs and normal bony and soft tissue structures. IMPRESSION: Unremarkable AP chest.
[2016-06-25 08:21] VITALS: BP 128/70
[2016-06-25] MEDS: ASPIRIN PO SCH (08:24)
--- NOTE | 2016-06-25 08:34 | Cardiac Catherization Report ---
LEFT HEART CATHETERIZATION/PERCUTANEOUS CORONARY/ENDOVASCULAR ULTRASOUND REPORT CLINICAL INFORMATION: A 60-year-old female with hypertension, smoker, presents for non-ST elevation IN, has been treated medically, is here for a left heart catheterization. Left heart catheterization performed via the right radial artery. Sterile technique, local anesthesia, 5-Portuguese radial sheath inserted. FINDINGS: 1. Left main is a medium caliber vessel that is patent. LAD is a medium caliber vessel that is patent proximally, mid diffuse 10-20%. Rest of the vessels are [id number] caliber vessel, patent. Diagonal 1 is a [id number] caliber vessel that is patent. Circumflex and AV groove is a small to medium caliber vessel that is patent. OM1 and OM2 are small to medium caliber vessels that are patent. You see collaterals from the septal feeding into the distal PDA and PLV. RCA engaged with JR4, 100%, is a dominant vessel, medium caliber, mid is 100% right after a small caliber RV branch which is long and patent. LV gram done in the FAROESE and SEGURA view shows normal LV function, LVEDP at 19 mmHg, LV is 139/19. Aortic is 138/65. No gradient across the aortic valve on pullback. 5-Portuguese catheters were taken over a guidewire. 5-Portuguese radial sheath was changed over 6-Portuguese sheath for percutaneous coronary intervention of the mid RCA; 1. Engaged the RCA with a 6-Portuguese RESS guiding catheter. 2. Unable to cross with the [place] Whisper extra support. 3. I was able to cross with a Gas Leak Inspector Helper 50 wire. 4. Ballooned with 1.5 x 6 balloon x 3 inflations. 5. Repeat angiogram shows small vessels in the distal RCA and PLV, PDA and wire was in the vessel. 6. Ballooned further with a 2.0 x 12 x 3 inflation. 7. Vessel size did grow. 8. Ballooned further with a 2.0 x 18 in the mid RCA. 9. Vessel size did improve. 10. Distal RCA at the bifurcation with 80% lesion ballooned with 2.0 x 12, 10 atmospheres, reduced stenosis down to 20%. 11. Intravascular ultrasound showed distal reference vessel of 2.2 x 2.3 and proximal right at the bifurcation of the RV branch 2.5 x 2.8. 12. Then, stented the mid RCA right at the bifurcation with a drug-eluting Resolute 2.25 x 22 inflated at 10 atmospheres. 13. Postdilated with a 2.5 x 12 noncompliant balloon in the mid and proximal section of the stent at 12-15 atmospheres. 14. Repeat angiogram revealed excellent angiographic result, good step up, step down. No dissection or perforation and KHUSHI 3 flow. 15. 6-Portuguese guiding catheter taken over guidewire, 6-Portuguese radial sheath was discontinued. Radial dressing applied. No hematoma. No bleeding. SUMMARY: 1. Successful PCI of a 100% mid RCA with a drug-eluting Resolute 2.25 x 22, post-dilated with 2.5 x 12, distal RCA at the bifurcation, reduced stenosis from 80% down to 20% balloon only angioplasty, goes into small caliber PDA and PLV. 2. Left main patent. LAD mid diffuse 10-20%. Diagonal 1 patent, circumflex patent, OM1, OM2 patent. 3. Normal LV function with normal left end-diastolic pressure. 4. The patient will be on aspirin, Brilinta, and smoking cessation and counseling was done. JOB# [id number] RIP/BETH
[2016-06-25] MEDS ORDERED: IMDUR PO SCH (10:00)
[2016-06-25] MEDS ORDERED: PROTONIX PO SCH (10:00)
[2016-06-25] MEDS ORDERED: BABY ASPIRIN PO SCH (10:00)
--- NOTE | 2016-06-25 10:21 | Discharge Summary ---
Providers - Providers Date of Admission: 06/21/16 06:02 Date of discharge: 06/25/16 Attending physician: BECKY MASON 06/24/16 Consult to Cardiac Rehabilitation [CONS] Routine Reason For Exam: post pci Primary care physician: KILN REMOVER Hospitalization Condition: Stable Disposition: DISCHARGED TO HOME OR SELFCARE - Discharge Diagnoses (1) NSTEMI (non-ST elevated myocardial infarction) Status: Acute (2) Diabetes mellitus type 2 in nonobese Status: Acute (3) HTN (hypertension) Status: Acute Qualifiers: Hypertension type: H (4) Hypothyroidism Status: Acute Qualifiers: Hypothyroidism type: H Core Measure Documentation - Palliative Care Palliative Care/ Comfort Measures: Not Applicable - Core Measures Any of the following diagnoses?: acute FL - Acute FL Discharge Requirements Aspirin at discharge: Yes AIRAM/ARB for LVSD if EF <40%: Yes Beta tiffany at discharge: No Reason for no beta tiffany on DC: Bradycardia Statin for LDL = or >100 mg/dl on DC: Yes - Heart Failure Discharge Requirements AIRAM/ARB for LVSD if EF <40%: Not Applicable Beta tiffany at discharge: Yes Exam - Constitutional Vitals: Temp Pulse Resp BP Pulse Ox 98.3 F 58 L 18 128/70 100 06/25/16 08:19 06/25/16 08:20 06/25/16 08:19 06/25/16 08:19 06/25/16 08:19 Plan Activity: advance as tolerated Additional Instructions: 1.Follow up with PCP in 1 week. 2.Follow up with cardiology in 1 week. 3.No strenous activity until cleared by Physician Follow up with: PRIMARY CARE, [Primary Care Provider] - 3-5 Days Prescriptions: Aspirin EC [Aspirin Enteric Coated TAB] 81 mg PO QDAY #30 tablet. AtorvaSTATin [Lipitor] 40 mg PO QHS #30 tablet glipiZIDE [Glucotrol] 10 mg PO BID #60 tab ISOSORBIDE MONOnitrate [Imdur ER] 30 mg PO QDAY #30 tablet Lisinopril [Zestril TAB] 10 mg PO QDAY #30 tablet Ticagrelor [Brilinta] 90 mg PO BID #60 tablet
--- NOTE | 2016-06-25 10:40 | Progress Note ---
Assessment and Plan NSTEMI troponin 1.050 s/p PCI-->okay to d/c per Dr. Pulliam CAD s/p PCI [facility] 06/24: lt main patent, lad patent mid 10-20%, lcx patent om1 -2 patent, rca mid 100%, pci of rca with rachel (resolute 2.25 x 22mm) Echo 05/2016: EF 55-60% continue ASA, Brilinta, imdur, statin no beta tiffany due to sinus bradycardia Hypertension BP stable Diabetes Hyperlipidemia Tobacco abuse counseled on cessation Stable cardiac status. Pt. remains chest pain free s/p PCI of RCA. Troponin 1.050 post PCI but okay to discharge per Dr. Pulliam. Follow up with Dr. Paula in the [place] office next week. The patient has been seen in conjunction with Dr. Rice who agrees with the assessment and plan of care. Subjective Date of service: 06/25/16 Principal diagnosis: NSTEMI Interval history: The patient is resting comfortably in bed. No chest pain or shortness of breath. Sinus rhythm on the monitor. Objective Last Vital Signs Temp 98.3 F 06/25/16 08:19 Pulse 58 L 06/25/16 08:20 Resp 18 06/25/16 08:19 BP 128/70 06/25/16 08:19 Pulse Ox 100 06/25/16 08:19 - Physical Examination General: No Apparent Distress HEENT: Positive: PERRL, Normocephaly, Mucus Membranes Moist Neck: Positive: neck supple, trachea midline Cardiac: Positive: Reg Rate and Rhythm, S1/S2 Lungs: Positive: clear to auscultation Neuro: Positive: Grossly Intact Abdomen: Positive: Soft, Active Bowel Sounds. Negative: Tender Skin: Positive: Clear. Negative: Rash Incision: Cardiac Cath Site (right radial-no hematoma) Extremities: Present: normal. Absent: edema - Labs and Meds Cardiac Enzymes 06/25/16 Range/Units 05:35 CK-MB (CK-2) 3.2 (0.0-4.0) ng/mL CBC 06/25/16 Range/Units 05:35 WBC 7.5 (4.5-11.0) K/mm3 RBC 3.40 L (3.65-5.03) M/mm3 Hgb 10.5 (10.1-14.3) gm/dl Hct 30.7 (30.3-42.9) % Plt Count 246 (140-440) K/mm3 Lymph # 2.5 (1.2-5.4) K/mm3 [place] # 0.9 H (0.0-0.8) K/mm3 Eos # 0.2 (0.0-0.4) K/mm3 Baso # 0.0 (0.0-0.1) K/mm3 Comprehensive Metabolic Panel 06/25/16 Range/Units 05:35 Sodium 144 (137-145) mmol/L Potassium 3.6 (3.6-5.0) mmol/L Chloride 109.8 H (98-107) mmol/L Carbon Dioxide 22 (22-30) mmol/L BUN 7 (7-17) mg/dL Creatinine 0.5 L (0.7-1.2) mg/dL Glucose 118 H (65-100) mg/dL Calcium 7.9 L (8.4-10.2) mg/dL - Imaging and Cardiology EKG: image reviewed Echo: report reviewed (05/2016: EF 55-60%) - Telemetry EKG Rhythm: Sinus Rhythm - EKG Sinus rhythms and dysrhythmias: sinus rhythm Repolarization changes or abnormalities: ST or T wave suggestive of ischemia
[2016-06-25] MEDS: BRILINTA PO SCH (10:43)
[2016-06-25] MEDS: ZESTRIL PO SCH (10:43)
--- NOTE | 2016-06-25 11:08 | Query- Chest Pain ---
Deamatias Dawson Ary Date:____06/25/16 Supervisor [facility]/CDS: Meribrandan Barraza Phone#: [phone] Exercise your independent professional judgment when responding to query. Questions asked do not imply a particular answer is desired or expected. We greatly appreciate your clarification on this issue. Clinical Documentation States: 60 year old female was admitted on 06/21/16. The cardiology consult note (06/21/16) states " Chest pain: troponin negative x 2 EKG: inverted T waves in leads 1, aVL, V1, V2, and V3, will repeat Echo 05/2016 : EF 55-60% stress MPI 05/2016: no ischemia, EF 62% " The cardiology progress note (06/24/16) states " NSTEMI CP free and asx at this time continue ASA, statin Echo 05/2016: EF 55-60% stress MPI 05/2016: no ischemia , EF 62% await [facility] findings " The Progress note 06/24/16 states " Assessment and plan: A 60-year-old woman with history of hypertension, diabetes, tobacco abuse comes emergency room with complaints of chest pain. NSTEMI s/p PCI of RCA with LALO cont aspirin, statin, brilinita 90mg bid and low dose imdur for small vessel disease in distal RCA " The cardiac catheterization report states " Successful PCI of 100% mid RCA. Normal LV function with normal left end-diastolic pressure. The patient will be on aspirin, bilinta, and smoking cessation " Please document the etiology of Chest Pain: [x] Myocardial Infarction [ ] Pneumonia [ ] Mediastinitis [ ] Costochondritis [ ] Pulmonary Embolism [ ] Coronary Artery Disease [ ] GERD [ ] Other: [ ] Comment/Explanation: Present on Admission: [x ] Yes (Y) [ ] Clinically undeterminable (W) [ ] No(N) Please document response in your Progress Notes and/or Discharge Summary and indicate if the condition was present on admission. MTDD
== END 2016-06-25 13:05 | disposition home or self-care (01) | DRG 247 ==
LOC: ED 03:26 → 4A 06:02
PROVIDERS: ADMIT Internal Medicine; ATTEND Internal Medicine
PROC: 027034Z Dilation of Coronary Artery, One Artery with Drug-eluting Intraluminal Device, Percutaneous Approach (ICD-10-PCS; principal; 2016-06-24)
PROC: 4A023N7 Measurement of Cardiac Sampling and Pressure, Left Heart, Percutaneous Approach (ICD-10-PCS; 2016-06-24)
PROC: 02713ZZ Dilation of Coronary Artery, Two Arteries, Percutaneous Approach (ICD-10-PCS; 2016-06-24)
PROC: B2111ZZ Fluoroscopy of Multiple Coronary Arteries using Low Osmolar Contrast (ICD-10-PCS; 2016-06-24)
DX: I21.4 Non-ST elevation (NSTEMI) myocardial infarction (principal); I10 Essential (primary) hypertension; E78.5 Hyperlipidemia, unspecified; E11.43 Type 2 diabetes mellitus with diabetic autonomic (poly)neuropathy; K31.84 Gastroparesis; E03.9 Hypothyroidism, unspecified; R11.2 Nausea with vomiting, unspecified; K21.9 Gastro-esophageal reflux disease without esophagitis; M19.90 Unspecified osteoarthritis, unspecified site; F17.210 Nicotine dependence, cigarettes, uncomplicated; Z82.49 Family history of ischemic heart disease and other diseases of the circulatory system; Z79.84 Long term (current) use of oral hypoglycemic drugs; Z88.5 Allergy status to narcotic agent; Z90.49 Acquired absence of other specified parts of digestive tract
CPT/HCPCS: 36415; 71010; 80048; 80061; 82550; 82553; 82962; 83036; 84484; 85014; 85018; 85025; 85049; 85347; 85520; 85610; 85730; 92928; 92978; 93005; 93010; 93458; 94760; 96374; 96375; 96376; 99406; A9270-GY; C1725; C1753; C1769; C1874; C1887; C1894; C9113; C9600; J0583; J1644; J1650; J1815; J2250; J2270; J2405; J2765; J3010; J7030; J7040; Q9967

== ENCOUNTER 2019-01-16 10:40 | Emergency (ER) | payer MEDICARE ==
[2019-01-16 10:46] VITALS: BP 156/78
[2019-01-16] MEDS ORDERED: valACYclovir 500 MG TAB PO ONE (11:34)
[2019-01-16] MEDS ORDERED: hydrOXYzine HCL 25 MG TAB PO ONE (11:35)
[2019-01-16] MEDS ORDERED: predniSONE 20 MG TAB PO ONE (11:36)
[2019-01-16] MEDS ORDERED: oxyCODONE /ACETAMINOPHEN 5-325MG TAB PO ONE (11:43)
--- NOTE | 2019-01-16 12:09 | Emergency Department Report ---
ED General Adult HPI - General Chief complaint: Skin Rash Stated complaint: BREAK OUT OVER FACE Time Seen by Provider: 01/16/19 11:20 Source: patient Mode of arrival: Ambulatory Limitations: No Limitations - History of Present Illness Initial comments: Patient is a 63-year-old female who presents with right facial rash that has been going on for last 2 days. Patient states that the rash is itchy and painful. Patient states that the pain is a 8 out 10 nothing makes it better and nothing makes it worse. Patient denies having any shortness of breath. Patient also states that she had chickenpox when she was younger. - Related Data Previous Rx's Medication Instructions Recorded Last Taken Type glipiZIDE [Glucotrol] 10 mg PO BID #60 tab 06/25/16 Unknown Rx Aspirin 650 mg PO TID #60 tablet 08/08/16 Unknown Rx AtorvaSTATin [Lipitor] 40 mg PO QHS #30 tablet 08/08/16 Unknown Rx ISOSORBIDE MONOnitrate [Imdur ER] 30 mg PO QDAY #30 tablet 08/08/16 Unknown Rx Levothyroxine [Synthroid] 25 mcg PO QAM #30 tablet 08/08/16 Unknown Rx Lisinopril [Zestril TAB] 10 mg PO QDAY #30 tablet 08/08/16 Unknown Rx Metoclopramide [Reglan TAB] 10 mg PO TID PRN #10 tab 08/08/16 Unknown Rx Ticagrelor [Brilinta] 90 mg PO BID #60 tablet 08/08/16 Unknown Rx Valacyclovir HCl [Valtrex] 1,000 mg PO TID #21 tablet 01/16/19 Unknown Rx oxyCODONE /ACETAMINOPHEN [Percocet 1 tab PO Q6HR PRN #11 tablet 01/16/19 Unknown Rx 5/325] predniSONE [Deltasone] 20 mg PO BID #10 tab 01/16/19 Unknown Rx Allergies Allergy/AdvReac Type Severity Reaction Status Date / Time codeine Allergy Vomiting Verified 06/07/16 01:47 ED Review of Systems ROS: Stated complaint: BREAK OUT OVER FACE Other details as noted in HPI Constitutional: denies: chills, fever Eyes: denies: eye pain, eye discharge, vision change ENT: denies: ear pain, throat pain Respiratory: denies: cough, shortness of breath, wheezing Cardiovascular: denies: chest pain, palpitations Endocrine: no symptoms reported Gastrointestinal: denies: abdominal pain, nausea, diarrhea Genitourinary: denies: urgency, dysuria, discharge Musculoskeletal: denies: back pain, joint swelling, arthralgia Skin: rash. denies: lesions Neurological: denies: headache, weakness, paresthesias Psychiatric: denies: anxiety, depression Hematological/Lymphatic: denies: easy bleeding, easy bruising ED Past Medical Hx - Past Medical History Previous Medical History?: Yes Hx Hypertension: Yes Hx Heart Attack/AMI: Yes Hx Congestive Heart Failure: No Hx Diabetes: Yes Hx GERD: Yes Hx Arthritis: Yes Hx Asthma: No Hx COPD: No Hx HIV: No Additional medical history: THYROID - Surgical History Past Surgical History?: Yes Hx Cholecystectomy: Yes Additional Surgical History: Tubal ligation, Carpal Tunnel - Social History Smoking Status: Current Every Day Smoker Substance Use Type: Alcohol - Medications Home Medications: Home Medications Medication Instructions Recorded Confirmed Last Taken Type glipiZIDE [Glucotrol] 10 mg PO BID #60 tab 06/25/16 08/07/16 Unknown Rx Aspirin 650 mg PO TID #60 tablet 08/08/16 Unknown Rx AtorvaSTATin [Lipitor] 40 mg PO QHS #30 tablet 08/08/16 Unknown Rx ISOSORBIDE MONOnitrate [Imdur ER] 30 mg PO QDAY #30 tablet 08/08/16 Unknown Rx Levothyroxine [Synthroid] 25 mcg PO QAM #30 tablet 08/08/16 Unknown Rx Lisinopril [Zestril TAB] 10 mg PO QDAY #30 tablet 08/08/16 Unknown Rx Metoclopramide [Reglan TAB] 10 mg PO TID PRN #10 tab 08/08/16 Unknown Rx Ticagrelor [Brilinta] 90 mg PO BID #60 tablet 08/08/16 Unknown Rx Valacyclovir HCl [Valtrex] 1,000 mg PO TID #21 tablet 01/16/19 Unknown Rx oxyCODONE /ACETAMINOPHEN [Percocet 1 tab PO Q6HR PRN #11 tablet 01/16/19 Unknown Rx 5/325] predniSONE [Deltasone] 20 mg PO BID #10 tab 01/16/19 Unknown Rx ED Physical Exam - General Limitations: No Limitations General appearance: alert, in no apparent distress - Head Head exam: Present: atraumatic, normocephalic - Eye Eye exam: Present: normal appearance - ENT ENT exam: Present: mucous membranes moist - Neck Neck exam: Present: normal inspection - Respiratory Respiratory exam: Present: normal lung sounds bilaterally. Absent: respiratory distress - Cardiovascular Cardiovascular Exam: Present: regular rate, normal rhythm. Absent: systolic murmur, diastolic murmur, rubs, gallop - GI/Abdominal GI/Abdominal exam: Present: soft, normal bowel sounds - Extremities Exam Extremities exam: Present: normal inspection - Back Exam Back exam: Present: normal inspection - Neurological Exam Neurological exam: Present: alert, oriented X3 - Psychiatric Psychiatric exam: Present: normal affect, normal mood - Skin Skin exam: Present: warm, dry, intact, normal color, rash (erythematous rash in dermatomal distribution on right face) ED Course Vital Signs 01/16/19 10:43 Temperature 98.3 F Pulse Rate 77 Respiratory 18 Rate Blood Pressure 156/78 O2 Sat by Pulse 98 Oximetry ED Medical Decision Making - Medical Decision Making Chief medical diagnosis: Shingles Differential medical diagnosis: Cellulitis, contact dermatitis I will give patient Valtrex prednisone Percocet and Atarax with itchiness. Patient is feeling better I will discharge patient home with Valtrex and will give patient a pain medicine go home with. Discussed plan with patient patient agrees with plan additional verbal discharge instructions were given. Critical care attestation.: If time is entered above; I have spent that time in minutes in the direct care of this critically ill patient, excluding procedure time. ED Disposition Clinical Impression: Shingles Qualifiers: Herpes zoster complications: without complications Qualified Code(s): B02.9 - Zoster without complications Disposition: - TO HOME OR SELFCARE Is pt being admited?: No Does the pt Need Aspirin: No Condition: Stable Instructions: Herpes Zoster (ED) Prescriptions: predniSONE [Deltasone] 20 mg PO BID #10 tab oxyCODONE /ACETAMINOPHEN [Percocet 5/325] 1 tab PO Q6HR PRN #11 tablet PRN Reason: Pain Valacyclovir HCl [Valtrex] 1,000 mg PO TID #21 tablet Referrals: PRIMARY MD GRANT [Primary Care Provider] - 3-5 Days MILDRED GRAF MD [Staff Physician] - 3-5 Days
== END 2019-01-16 13:02 | disposition home or self-care (01) ==
LOC: ED 10:40
DX: B02.9 Zoster without complications (principal); I10 Essential (primary) hypertension; I25.2 Old myocardial infarction; E11.9 Type 2 diabetes mellitus without complications; K21.9 Gastro-esophageal reflux disease without esophagitis; M19.90 Unspecified osteoarthritis, unspecified site; F17.200 Nicotine dependence, unspecified, uncomplicated; Z98.51 Tubal ligation status
CPT/HCPCS: 99282; J7512

== ENCOUNTER 2019-05-20 15:09 | Emergency (ER) | payer MEDICARE ==
--- NOTE | 2019-05-20 17:37 | Emergency Department Report ---
Chief Complaint: Fall Stated Complaint: FALL - HPI History of Present Illness: 63 yo AA F presents with some neck and back pain, as well as left upper arm pain, after falling down about 8-9 stairs. She was heading down the stairs and slipped and went down the stairs on her back. Denies hitting her head or any LOC. She took some tylenol for pain without much relief. Ambulatory into the triage room. - Exam Vital Signs: Vital Signs 05/20/19 15:19 Temperature 97.6 F Pulse Rate 85 Respiratory 18 Rate Blood Pressure 196/81 [Right] O2 Sat by Pulse 99 Oximetry Physical Exam: Midline and b/l paraspinal cervical tenderness but no step off or deformity. A few different areas of midline and b/l paraspinal thoracic and lumbar TTP. Ambulatory into the room. TTP to the left upper humerus. AAO X 3. CN II - XII intact. MSE screening note: Focused history and physical exam performed. Due to findings the following was ordered: XR of cervical/thoracic/lumbar spine and XR of humerus To be seen in [facility] Patient discussed with doctor:: ARIADNE MCKEE ED Disposition for MSE Condition: Stable
[2019-05-20 18:26] VITALS: BP 192/79
[2019-05-20] MEDS ORDERED: IBUPROFEN 400 MG TAB PO ONE (18:34)
[2019-05-20] MEDS ORDERED: ACETAMINOPHEN 325 MG TAB PO ONE (18:34)
--- NOTE | 2019-05-20 18:35 | XRay Report ---
LEFT HUMERUS 2 VIEWS INDICATION / CLINICAL INFORMATION: Fell down the stairs today with left arm pain. COMPARISON: None available. FINDINGS: BONES / JOINT(S): No acute fracture or subluxation. There are mild degenerative changes involving the acromioclavicular joint. SOFT TISSUES: No significant abnormality. ADDITIONAL FINDINGS: The visualized portion of the left lung is clear. IMPRESSION: No acute osseous abnormality. Signer Name: Joel Horton MD Signed: 05/20/2019 6:31 PM Workstation Name: [id number]
--- NOTE | 2019-05-20 18:37 | XRay Report ---
CERVICAL SPINE 3 VIEWS INDICATION / CLINICAL INFORMATION: Fell down the stairs today with neck pain. COMPARISON: None available. FINDINGS: BONES / JOINT(S): There is moderate degenerative disc disease at C5-6 with mild degenerative disc dis ease at C6-7. There is mild nonspecific straightening of the normal cervical lordosis. I see no evide nce of fracture or subluxation. SOFT TISSUES: The prevertebral soft tissues are normal. ADDITIONAL FINDINGS: The lung apices are clear. IMPRESSION: Lower cervical spondylosis without acute osseous abnormality. Signer Name: Joel Horton MD Signed: 05/20/2019 6:32 PM Workstation Name: [id number]
--- NOTE | 2019-05-20 18:38 | XRay Report ---
LUMBOSACRAL SPINE 3 VIEWS INDICATION / CLINICAL INFORMATION: Fell down the stairs today with low back pain. COMPARISON: None available. FINDINGS: BONES / JOINT(S): There is moderate degenerative disc disease at L5-S1 with mild degenerative disc di sease at L1-2. There are moderate hypertrophic changes involving the facet joints in the mid to lower lumbar spine bilaterally. I see no evidence of fracture or subluxation. SOFT TISSUES: There are atherosclerotic calcifications involving the aorta without aneurysm. ADDITIONAL FINDINGS: The gallbladder is surgically absent. IMPRESSION: Spondylosis without acute osseous abnormality. Signer Name: Joel Horton MD Signed: 05/20/2019 6:33 PM Workstation Name: [id number]
--- NOTE | 2019-05-20 18:39 | XRay Report ---
THORACIC SPINE 2 VIEWS INDICATION / CLINICAL INFORMATION: Fell down the stairs today with thoracic back pain. COMPARISON: None available. FINDINGS: BONES / JOINT(S): There is very mild mid to lower thoracic spondylosis. The pedicles are intact. Ther e is no evidence of fracture or subluxation. SOFT TISSUES: No significant abnormality. ADDITIONAL FINDINGS: None. IMPRESSION: Very mild spondylosis without acute osseous abnormality. Signer Name: Joel Horton MD Signed: 05/20/2019 6:34 PM Workstation Name: [id number]
--- NOTE | 2019-05-20 20:20 | Emergency Department Report ---
ED General Adult HPI - General Chief complaint: Fall Stated complaint: FALL Time Seen by Provider: 05/20/19 17:52 Source: patient, RN notes reviewed, old records reviewed Mode of arrival: Ambulatory Limitations: No Limitations - History of Present Illness Initial comments: During the history and physical examination, I am distribution supervisor and escorted by nurse Elaina Mccormick The patient is a 63-year-old female. The patient had a mechanical fall at approximately 5:30 in the morning. She reports missing a step, and went down 9- 10 steps. She did not hit her head. She hit her lower back. She came into the ER because a family member recommended she come in. She has paralumbar back pain, and left anterior chest wall pain. She makes no complaint of midline neck pain, chest pain, abdominal pain, shortness of breath, weakness and her numbness. The pain is throbbing and sharp, increases with palpation, range of motion, and it decreases with rest. There is no bladder or bowel retention or incontinence. There is no saddle anesthesia. -: Sudden Location: back Severity scale (0 -10): 8 Quality: aching Consistency: intermittent Improves with: rest Worsens with: movement - Related Data Previous Rx's Medication Instructions Recorded Last Taken Type glipiZIDE [Glucotrol] 10 mg PO BID #60 tab 06/25/16 Unknown Rx Aspirin 650 mg PO TID #60 tablet 08/08/16 Unknown Rx AtorvaSTATin [Lipitor] 40 mg PO QHS #30 tablet 08/08/16 Unknown Rx ISOSORBIDE MONOnitrate [Imdur ER] 30 mg PO QDAY #30 tablet 08/08/16 Unknown Rx Levothyroxine [Synthroid] 25 mcg PO QAM #30 tablet 08/08/16 Unknown Rx Metoclopramide [Reglan TAB] 10 mg PO TID PRN #10 tab 08/08/16 Unknown Rx Ticagrelor [Brilinta] 90 mg PO BID #60 tablet 08/08/16 Unknown Rx lisinopriL [Zestril TAB] 10 mg PO QDAY #30 tablet 08/08/16 Unknown Rx Valacyclovir HCl [Valtrex] 1,000 mg PO TID #21 tablet 01/16/19 Unknown Rx oxyCODONE /ACETAMINOPHEN [Percocet 1 tab PO Q6HR PRN #11 tablet 01/16/19 Unknown Rx 5/325] predniSONE [Deltasone] 20 mg PO BID #10 tab 01/16/19 Unknown Rx Acetaminophen [Non-Aspirin Extra 500 mg PO Q6HR PRN #30 tablet 05/20/19 Unknown Rx Strength] Ibuprofen [Motrin] 600 mg PO Q8H PRN #30 tablet 05/20/19 Unknown Rx Allergies Allergy/AdvReac Type Severity Reaction Status Date / Time tramadol Allergy Unknown Verified 05/20/19 15:11 ED Review of Systems ROS: Stated complaint: FALL Other details as noted in HPI Constitutional: denies: fever Eyes: denies: eye discharge ENT: denies: congestion Respiratory: denies: wheezing Cardiovascular: denies: syncope Gastrointestinal: denies: abdominal pain Musculoskeletal: back pain, arthralgia, myalgia Neurological: denies: weakness, numbness, paresthesias, confusion ED Past Medical Hx - Past Medical History Hx Hypertension: Yes Hx Heart Attack/AMI: Yes Hx Congestive Heart Failure: No Hx Diabetes: Yes Hx GERD: Yes Hx Arthritis: Yes Hx Asthma: No Hx COPD: No Hx HIV: No Additional medical history: THYROID - Surgical History Hx Cholecystectomy: Yes Additional Surgical History: Tubal ligation, Carpal Tunnel - Social History Smoking Status: Current Every Day Smoker Substance Use Type: None - Medications Home Medications: Home Medications Medication Instructions Recorded Confirmed Last Taken Type glipiZIDE [Glucotrol] 10 mg PO BID #60 tab 06/25/16 08/07/16 Unknown Rx Aspirin 650 mg PO TID #60 tablet 08/08/16 Unknown Rx AtorvaSTATin [Lipitor] 40 mg PO QHS #30 tablet 08/08/16 Unknown Rx ISOSORBIDE MONOnitrate [Imdur ER] 30 mg PO QDAY #30 tablet 08/08/16 Unknown Rx Levothyroxine [Synthroid] 25 mcg PO QAM #30 tablet 08/08/16 Unknown Rx Metoclopramide [Reglan TAB] 10 mg PO TID PRN #10 tab 08/08/16 Unknown Rx Ticagrelor [Brilinta] 90 mg PO BID #60 tablet 08/08/16 Unknown Rx lisinopriL [Zestril TAB] 10 mg PO QDAY #30 tablet 08/08/16 Unknown Rx Valacyclovir HCl [Valtrex] 1,000 mg PO TID #21 tablet 01/16/19 Unknown Rx oxyCODONE /ACETAMINOPHEN [Percocet 1 tab PO Q6HR PRN #11 tablet 01/16/19 Unknown Rx 5/325] predniSONE [Deltasone] 20 mg PO BID #10 tab 01/16/19 Unknown Rx Acetaminophen [Non-Aspirin Extra 500 mg PO Q6HR PRN #30 tablet 05/20/19 Unknown Rx Strength] Ibuprofen [Motrin] 600 mg PO Q8H PRN #30 tablet 05/20/19 Unknown Rx ED Physical Exam - General Limitations: No Limitations, Other (during entire physical examination, distribution supervisor and escorted by nurse Elaina Napier) General appearance: alert, in no apparent distress - Head Head exam: Present: atraumatic, normocephalic - Eye Eye exam: Present: normal appearance, EOMI. Absent: nystagmus - ENT ENT exam: Present: normal exam, normal orophraynx, mucous membranes moist, normal external ear exam - Neck Neck exam: Present: normal inspection, full ROM, other (there is no midline cervical spine tenderness). Absent: tenderness - Respiratory Respiratory exam: Present: normal lung sounds bilaterally, chest wall tenderness. Absent: respiratory distress - Cardiovascular Cardiovascular Exam: Present: regular rate, normal rhythm. Absent: systolic murmur, diastolic murmur, rubs, gallop - GI/Abdominal GI/Abdominal exam: Present: soft. Absent: distended, tenderness, guarding, rebound, rigid, pulsatile mass - Extremities Exam Extremities exam: Present: normal inspection, full ROM, other (2+ pulses noted in the bilateral upper and lower extremities. There is no long bony tenderness. The pelvis is stable. The muscular compartments are soft. There is no palpable cord. There is no redness, pus or streaking.). Absent: pedal edema, calf tenderness - Back Exam Back exam: Present: normal inspection, full ROM, paraspinal tenderness. Absent: tenderness, CVA tenderness (R), CVA tenderness (L), vertebral tenderness - Neurological Exam Neurological exam: Present: alert, oriented X3, normal gait, other (there is no facial droop. The tongue is midline. The extraocular movements are intact bilaterally. There is 5/5 strength in the bilateral upper and lower extremities. Sensation is intact to light touch in the bilateral upper and lower extremities. Hearing is intact. Tongue is midline. Speech is fluid, lucent and intact. Appropriate thought content. V1, V2, V3 intact bilaterally. Walks with a steady gait. There is no past-pointing. There is normal [id number]. There is a negative Romberg examination.). Absent: motor sensory deficit - Psychiatric Psychiatric exam: Present: normal affect, normal mood - Skin Skin exam: Present: warm, dry, intact, normal color. Absent: rash ED Course Vital Signs 05/20/19 05/20/19 05/20/19 15:19 18:24 19:03 Temperature 97.6 F Pulse Rate 85 69 Respiratory 18 16 16 Rate Blood Pressure 196/81 192/79 [Right] O2 Sat by Pulse 99 100 Oximetry ED Medical Decision Making - Lab Data Vital Signs 05/20/19 05/20/19 05/20/19 15:19 18:24 19:03 Temperature 97.6 F Pulse Rate 85 69 Respiratory 18 16 16 Rate Blood Pressure 196/81 192/79 [Right] O2 Sat by Pulse 99 100 Oximetry - Radiology Data Radiology results: report reviewed, image reviewed X-ray of the thoracic spine, lumbar spine, cervical spine, humerus negative for acute disease. Incidental findings noted. - Medical Decision Making Differential diagnosis, including but not limited to: Sprain, strain, mechanical fall Assessment and plan: 63-year-old female who presents hours after mechanical fall. She is afebrile with reassuring vital signs and clinically sober with a GCS of 15. Her cervical spine is cleared by myself through the [employer] and [place] C-spine rule. A head to toe physical exam did not detect any significant abnormalities. Patient counseled to expect to be sore over the next few days. Incidental hypertension reviewed and appreciated, she states she did not hit her head, I reports a history of chronic hypertension. Please reference the [employer] clinical policy on hypertension which is not acutely symptomatic or decompensated. The patient is suitable to be discharged with outpatient follow-up. Critical care attestation.: If time is entered above; I have spent that time in minutes in the direct care of this critically ill patient, excluding procedure time. ED Disposition Clinical Impression: Fall, Back pain, Elevated blood pressure reading Disposition: - TO HOME OR SELFCARE Is pt being admited?: No Does the pt Need Aspirin: No Condition: Stable Additional Instructions: Rest, avoid heavy lifting, and avoid strenuous physical activities. Take the pain medications as needed and directed. Recommend follow-up with a primary care doctor within the next 7-10 days. Pain typically gets worse before it gets better after mechanical fall. Take pain medications as required. Follow up with the primary care doctor within the next 7-10 days. Return to the emergency room right away with new, worsening or different symptoms, or symptoms not present on initial emergency room evaluation. Referrals: GAGAN MCDOWELL MD [Primary Care Provider] - 7-10 days
== END 2019-05-20 20:29 | disposition home or self-care (01) ==
LOC: ED 15:09
DX: M54.5 Low back pain (principal); R03.0 Elevated blood-pressure reading, without diagnosis of hypertension; I10 Essential (primary) hypertension; I25.2 Old myocardial infarction; E11.9 Type 2 diabetes mellitus without complications; K21.9 Gastro-esophageal reflux disease without esophagitis; M19.90 Unspecified osteoarthritis, unspecified site; Z98.51 Tubal ligation status; F17.200 Nicotine dependence, unspecified, uncomplicated; Z98.890 Other specified postprocedural states; Z79.899 Other long term (current) drug therapy; Z88.8 Allergy status to other drugs, medicaments and biological substances; W10.9XXA Fall (on) (from) unspecified stairs and steps, initial encounter; Y93.89 Activity, other specified; Y92.89 Other specified places as the place of occurrence of the external cause; Y99.8 Other external cause status
CPT/HCPCS: 72040; 72070; 72100

== ENCOUNTER 2019-08-31 12:42 | Observation (INO) | payer MEDICARE ==
[2019-08-31 14:21] LABS: Eosinophils # (Auto) 0.1 K/mm3 (0.0-0.4); Eosinophils % (Auto) 2.6 % (0.0-4.3); Hematocrit 39.9 % (30.3-42.9); Hemoglobin 13.8 gm/dl (10.1-14.3); Lymphocytes # (Auto) 1.7 K/mm3 (1.2-5.4); Lymphocytes % (Auto) 31.3 % (13.4-35.0); Mean Corpuscular HGB Conc 35 % (30-34); Mean Corpuscular Volume 92 fl (79-97); Monocytes # (Auto) 0.6 K/mm3 (0.0-0.8); Monocytes % (Auto) 10.3 % (0.0-7.3); Platelet Count 240 K/mm3 (140-440); Red Blood Count 4.33 M/mm3 (3.65-5.03); Red Cell Distribution Width 13.6 % (13.2-15.2)
[2019-08-31 14:34] LABS: BUN/Creatinine Ratio 34; Blood Urea Nitrogen 24 mg/dL (7-17); Calcium 8.7 mg/dL (8.4-10.2); Hemolysis Index 16
[2019-08-31] MEDS ORDERED: NITROGLYCERIN 0.4 MG TAB SUBL SL PRN (16:31)
[2019-08-31] MEDS ORDERED: FAMOTIDINE 20 MG TAB PO ONE (16:31)
[2019-08-31] MEDS ORDERED: ASPIRIN 81 MG TAB CHEW PO ONE (16:31)
--- NOTE | 2019-08-31 16:36 | Emergency Department Report ---
ED Chest Pain HPI - General Chief Complaint: Chest Pain Stated Complaint: CHEST PAIN PUI?: No Time Seen by Provider: 08/31/19 16:02 Source: patient, RN notes reviewed, old records reviewed Mode of arrival: Ambulatory Limitations: No Limitations - History of Present Illness Initial Comments: Cardiology: [facility] cardiology The patient is a 63-year-old female. She is not known to myself previously. Her past medical history includes diabetes, hypertension, COPD, heart disease, with stents. The patient was hospitalized for non-ST elevation myocardial infarction at this institution in 2017. She had a catheterization performed, with successful PCI of 100% mid RCA, with drug-eluting stent, distal RCA at the bifurcation, reduced stenosis from 80% down to 20% balloon only angioplasty, goes into small caliber PDA and PLV. Left main is found to be patent, LAD mid diffuse 10 to 20%, diagonal 1 patent, circumflex patent, OM1, OM 2 patent. LV function was also noted to be within normal limits. The patient is currently on aspirin therapy which she has been compliant with, and is no longer taking Brilinta. She stopped tobacco consumption last month. She still consumes cannabis recreationally. She denies DVT and pulmonary embolism risk factors. She denies fever, cough, and coronavirus symptomatology and risk factors. She presents to the ER with "I think I am having another heart attack." She complains of nontraumatic central and left-sided chest pressure and discomfort, which moves to her neck, jaw and back. She states that this feels "exactly like my last heart attack." Her pain is rated as a 6 out of 10 at this time. There is no complaint of headache, abdominal pain, hematemesis or bright red blood per rectum. MD Complaint: chest pain -: Gradual, days(s) Onset: during exertion Pain Location: substernal, left chest Pain Radiation: back, neck, jaw/teeth Severity: moderate Quality: aching Consistency: intermittent Improves With: nitroglycerin Worsens With: nothing re: dyspnea Treatments Prior to Arrival: aspirin Aspirin use within the Past 7 Days: (1) Yes - Related Data Home Medications Medication Instructions Recorded Confirmed Last Taken Albuterol Sulfate [Proair 90 mcg IH Q4HR PRN 08/31/19 08/31/19 Unknown Respiclick] Aspirin [Adult Aspirin] 81 mg PO DAILY 08/31/19 08/31/19 Unknown Gabapentin 1 cap PO QHS 08/31/19 08/31/19 Unknown Levothyroxine [Synthroid] 1 tab PO DAILY 08/31/19 08/31/19 Unknown Metformin HCl [metFORMIN] 1,000 mg PO BID 08/31/19 08/31/19 Unknown Olmesartan (Nf) [Benicar (Nf)] 5 mg PO QDAY 08/31/19 08/31/19 Unknown Omeprazole 40 mg PO DAILY 08/31/19 08/31/19 Unknown Sitagliptin Phosphate [Januvia] 1 tab PO DAILY 08/31/19 08/31/19 Unknown hydroCHLOROthiazide [HCTZ] 1 tab PO DAILY 08/31/19 08/31/19 Unknown Previous Rx's Medication Instructions Recorded Last Taken Type AtorvaSTATin [Lipitor] 40 mg PO QHS #30 tablet 08/08/16 Unknown Rx ISOSORBIDE MONOnitrate [Imdur ER] 30 mg PO QDAY #30 tablet 08/08/16 Unknown Rx Allergies Allergy/AdvReac Type Severity Reaction Status Date / Time lisinopril Allergy Unknown Verified 08/31/19 17:49 metoprolol Allergy Unknown Verified 08/31/19 17:49 tramadol Allergy Unknown Verified 08/31/19 17:49 Heart Score - HEART Score History: Moderately suspicious EKG: Non-specific Age: 45-65 Risk factors: > 3 risk factors or hx of atherosclerotic disease Troponin: < normal limit HEART Score: 5 - Critical Actions Critical Actions: 4-6 pts:12-16.6% risk of adverse cardiac event. Should be admitted ED Review of Systems ROS: Stated complaint: CHEST PAIN Other details as noted in HPI Constitutional: malaise. denies: fever Eyes: denies: eye discharge ENT: denies: congestion Respiratory: denies: wheezing Cardiovascular: chest pain. denies: syncope Gastrointestinal: denies: vomiting Genitourinary: denies: dysuria Musculoskeletal: back pain Skin: as per HPI Neurological: as per HPI Psychiatric: as per HPI Hematological/Lymphatic: as per HPI ED Past Medical Hx - Past Medical History Previous Medical History?: Yes Hx Hypertension: Yes Hx Heart Attack/AMI: Yes Hx Congestive Heart Failure: No Hx Diabetes: Yes Hx GERD: Yes Hx Arthritis: Yes Hx Asthma: No Hx COPD: Yes Hx HIV: No Additional medical history: THYROID - Surgical History Past Surgical History?: Yes Hx Coronary Stent: Yes Hx Cholecystectomy: Yes Additional Surgical History: Tubal ligation, Carpal Tunnel - Social History Smoking Status: Former Smoker Substance Use Type: None - Medications Home Medications: Home Medications Medication Instructions Recorded Confirmed Last Taken Type AtorvaSTATin [Lipitor] 40 mg PO QHS #30 tablet 08/08/16 08/31/19 Unknown Rx ISOSORBIDE MONOnitrate [Imdur ER] 30 mg PO QDAY #30 tablet 08/08/16 08/31/19 Unknown Rx Albuterol Sulfate [Proair 90 mcg IH Q4HR PRN 08/31/19 08/31/19 Unknown History Respiclick] Aspirin [Adult Aspirin] 81 mg PO DAILY 08/31/19 08/31/19 Unknown History Gabapentin 1 cap PO QHS 08/31/19 08/31/19 Unknown History Levothyroxine [Synthroid] 1 tab PO DAILY 08/31/19 08/31/19 Unknown History Metformin HCl [metFORMIN] 1,000 mg PO BID 08/31/19 08/31/19 Unknown History Olmesartan (Nf) [Benicar (Nf)] 5 mg PO QDAY 08/31/19 08/31/19 Unknown History Omeprazole 40 mg PO DAILY 08/31/19 08/31/19 Unknown History Sitagliptin Phosphate [Januvia] 1 tab PO DAILY 08/31/19 08/31/19 Unknown History hydroCHLOROthiazide [HCTZ] 1 tab PO DAILY 08/31/19 08/31/19 Unknown History ED Physical Exam - General Limitations: No Limitations General appearance: alert, in no apparent distress - Head Head exam: Present: atraumatic, normocephalic - Eye Eye exam: Present: normal appearance, EOMI. Absent: nystagmus - ENT ENT exam: Present: normal exam, normal orophraynx, mucous membranes moist, normal external ear exam - Neck Neck exam: Present: normal inspection, full ROM. Absent: tenderness, meningismus - Respiratory Respiratory exam: Present: normal lung sounds bilaterally. Absent: respiratory distress - Cardiovascular Cardiovascular Exam: Present: regular rate, normal rhythm, normal heart sounds. Absent: bradycardia, tachycardia, irregular rhythm, systolic murmur, diastolic murmur, rubs, gallop - GI/Abdominal GI/Abdominal exam: Present: soft, normal bowel sounds. Absent: distended, tenderness, guarding, rebound, rigid, pulsatile mass - Extremities Exam Extremities exam: Present: normal inspection, full ROM, other (2+ pulses noted in the bilateral upper and lower extremities. There is no palpable cord. negative Homans sign. Muscular compartments are soft. The pelvis is stable.). Absent: pedal edema, calf tenderness - Back Exam Back exam: Present: normal inspection, full ROM. Absent: tenderness, CVA tenderness (R), CVA tenderness (L), paraspinal tenderness, vertebral tenderness - Neurological Exam Neurological exam: Present: alert, oriented X3, normal gait, other (No facial droop. Tongue midline. Extraocular movements intact bilaterally. Facial sensation intact to light touch in V1, V2, V3 distribution bilaterally. 5 and a 5 strength in 4 extremities. Sensation intact to light touch in 4 extre mities.). Absent: motor sensory deficit - Psychiatric Psychiatric exam: Present: anxious - Skin Skin exam: Present: warm, dry, intact, normal color. Absent: rash ED Course Vital Signs 08/31/19 12:47 Temperature 98.6 F Pulse Rate 81 Respiratory 18 Rate Blood Pressure 156/90 O2 Sat by Pulse 97 Oximetry - Reevaluation(s) Reevaluation #1: 08/31/19 18:16 The patient states her pain is much improved. She is eating food at this time, and she appears to be comfortable. She does not want any additional pain medicines at this time. Hospital physician, Dr. Sylvia Johnston to admit RAJAT score - Rajat Score Age > 65: (0) No Aspirin use within the Past 7 Days: (1) Yes 3 or more CAD Risk Factors: (1) Yes 2 or more Angina events in past 24 hrs: (1) Yes Known CAD with more than 50% Stenosis: (1) Yes Elevated Cardiac Markers: (0) No ST Deviation Greater than 0.5mm: (0) No RAJAT Score: 4 ED Medical Decision Making - Lab Data Result diagrams: 08/31/19 13:50 08/31/19 13:50 Vital Signs 08/31/19 12:47 Temperature 98.6 F Pulse Rate 81 Respiratory 18 Rate Blood Pressure 156/90 O2 Sat by Pulse 97 Oximetry Lab Results 08/31/19 08/31/19 Range/Units 13:50 13:50 WBC 5.5 (4.5-11.0) K/mm3 RBC 4.33 (3.65-5.03) M/mm3 Hgb 13.8 (10.1-14.3) gm/dl Hct 39.9 (30.3-42.9) % MCV 92 (79-97) fl MCH 32 (28-32) pg MCHC 35 H (30-34) % RDW 13.6 (13.2-15.2) % Plt Count 240 (140-440) K/mm3 Lymph % (Auto) 31.3 (13.4-35.0) % Haak[place] % (Auto) 10.3 H (0.0-7.3) % Eos % (Auto) 2.6 (0.0-4.3) % Baso % (Auto) [employer] Lymph # 1.7 (1.2-5.4) K/mm3 Haakon # 0.6 (0.0-0.8) K/mm3 Eos # 0.1 (0.0-0.4) K/mm3 Baso # 0.0 (0.0-0.1) K/mm3 Seg Neutrophils % 55.2 (40.0-70.0) % Seg Neutrophils # 3.0 (1.8-7.7) K/mm3 Sodium 141 (137-145) mmol/L Potassium 4.0 (3.6-5.0) mmol/L Chloride 103.3 (98-107) mmol/L Carbon Dioxide 23 (22-30) mmol/L Anion Gap 19 mmol/L BUN 24 H (7-17) mg/dL Creatinine 0.7 (0.7-1.2) mg/dL Estimated GFR > 60 ml/min BUN/Creatinine Ratio 34 % Glucose 178 H (65-100) mg/dL Calcium 8.7 (8.4-10.2) mg/dL Troponin T < 0.010 (0.00-0.029) ng/mL - EKG Data -: EKG Interpreted by Nm EKG shows normal: sinus rhythm Rate: normal - EKG Data When compared to previous EKG there are: no significant change 08/31/19 16:37 Sinus rhythm, 69 bpm, left axis deviation, low voltage, QTC within normal limits. The EKG is abnormal. It is not a STEMI. It appears to be unchanged from prior EKG from 07 August 2016 EKG #2 was unchanged from prior EKG. 08/31/19 17:34 - Radiology Data Radiology results: report reviewed, image reviewed CHEST 2 VIEWS INDICATION: Chest Pain. COMPARISON: Previous exams cannot be retrieved for comparison FINDINGS: Support devices: None. Heart: Within normal limits. Lungs: Nodular densities present overlying the anterior aspect of the first rib. No acute air space or interstitial disease. Pleura: No significant pleural effusion. No pneumothorax. Additional findings: None. IMPRESSION: 1. Nodular density as noted which may be bony in origin however recommend CT or follow-up radiographs within 6 months for continued surveillance Signer Name: Alex Devries MD Signed: 08/31/2019 12:45 PM Workstation Name: [id number] - Medical Decision Making Differential diagnosis, including but not limited to: Stable angina, unstable angina, GERD, gastritis, hiatal hernia Assessment and plan: 63-year-old female with a known history of ischemic heart disease, compliant with therapy, not currently tachycardic, tachypneic or hypoxic, who endorses no DVT or pulmonary embolism risk factors, who is low risk by Wells criteria, presenting with concerning clinical chest pain. We will treat her pain. We have recommended admission to the medical service for accelerated cardiac risk ratification. Contacted cardiology nurse practitioner fabrication specialist, Yarely Luis, working with Chucky Loyola Admission to the medical service is recommended. Cardiology to follow in con sultation. Nothing by mouth after midnight is requested. We will treat the patient's pain. Repeat EKG is pending. Critical care attestation.: If time is entered above; I have spent that time in minutes in the direct care of this critically ill patient, excluding procedure time. ED Disposition Clinical Impression: Acute chest pain CAD (coronary artery disease) Qualifiers: Coronary Disease-Associated Artery/Lesion type: unspecified vessel or lesion type [place] vs. transplanted heart: [place] heart Associated angina: with un specified angina Qualified Code(s): I25.119 - Atherosclerotic heart disease of [place] coronary artery with unspecified angina pectoris Disposition: OP ADMIT IP TO THIS HOSP Is pt being admited?: Yes Does the pt Need Aspirin: Yes Condition: Stable
--- NOTE | 2019-08-31 18:52 | XRay Report ---
CHEST 2 VIEWS INDICATION: Chest Pain. COMPARISON: Previous exams cannot be retrieved for comparison FINDINGS: Support devices: None. Heart: Within normal limits. Lungs: Nodular densities present overlying the anterior aspect of the first rib. No acute air space o r interstitial disease. Pleura: No significant pleural effusion. No pneumothorax. Additional findings: None. IMPRESSION: 1. Nodular density as noted which may be bony in origin however recommend CT or follow-up radiographs within 6 months for continued surveillance Signer Name: Alex Devries MD Signed: 08/31/2019 1:45 PM Workstation Name: [id number]
--- NOTE | 2019-08-31 21:29 | History and Physical Report ---
History of Present Illness Date of examination: 08/31/19 Date of admission: 08/31/19 16:40 Chief complaint: Delia pain 1 dayst History of present illness: 63-year-old female. She presents to the ER with "I think I am having another heart attack." She complains of retrocentral and left-sided chest pressure and discomfort, which moves to her neck, jaw and back. She states that this feels "exactly like my last heart attack." Her past medical history includes diabetes, hypertension, COPD, heart disease, with stents.zPain is 8/10.No exacerbating or relieving factors The patient was hospitalized for non-ST elevation myocardial infarction at this institution in 2017. She had a catheterization performed, with successful PCI of 100% mid RCA, with drug-eluting stent, distal RCA at the bifurcation, reduced stenosis from 80% down to 20% balloon only angioplasty, goes into small caliber PDA and PLV. Left main is found to be patent, LAD mid diffuse 10 to 20%, diagonal 1 patent, circumflex patent, OM1, OM 2 patent. LV function was also noted to be within normal limits. The patient is currently on aspirin therapy which she has been compliant with, and is no longer taking Brilinta. She stopped tobacco consumption last month. She still consumes cannabis recreationally. She denies DVT and pulmonary embolism risk factors. She denies fever, cough, and coronavirus symptomatology and risk factors. Her pain is rated as a 8 out of 10 at this time. There is no complaint of headache, abdominal pain, hematemesis or bright red blood per rectum. Past Medical History Previous Medical History?: Yes Hx Hypertension: Yes Hx Heart Attack/AMI: Yes Hx Diabetes: Yes Hx GERD: Yes Hx Arthritis: Yes Hx COPD: Yes Additional medical history: THYROID Surgical History Past Surgical History?: Yes Hx Coronary Stent: Yes Hx Cholecystectomy: Yes Additional Surgical History: Tubal ligation, Carpal Tunnel Social History Smoking Status: Former Smoker Substance Use Type: None Medications Home Medications: Home Medications Medication Instructions Recorded Confirmed Last Taken Type AtorvaSTATin [Lipitor] 40 mg PO QHS #30 tablet 08/08/16 08/31/19 Unknown Rx ISOSORBIDE MONOnitrate [Imdur ER] 30 mg PO QDAY #30 tablet 08/08/16 08/31/19 Unknown Rx Albuterol Sulfate [Proair 90 mcg IH Q4HR PRN 08/31/19 08/31/19 Unknown History Respiclick] Aspirin [Adult Aspirin] 81 mg PO DAILY 08/31/19 08/31/19 Unknown History Gabapentin 1 cap PO QHS 08/31/19 08/31/19 Unknown History Levothyroxine [Synthroid] 1 tab PO DAILY 08/31/19 08/31/19 Unknown History Metformin HCl [metFORMIN] 1,000 mg PO BID 08/31/19 08/31/19 Unknown History Olmesartan (Nf) [Benicar (Nf)] 5 mg PO QDAY 08/31/19 08/31/19 Unknown History Omeprazole 40 mg PO DAILY 08/31/19 08/31/19 Unknown History Sitagliptin Phosphate [Januvia] 1 tab PO DAILY 08/31/19 08/31/19 Unknown History hydroCHLOROthiazide [HCTZ] 1 tab PO DAILY 08/31/19 08/31/19 Unknown History Review of Systems ROS: Stated complaint: CHEST PAIN Other details as noted in HPI Constitutional: malaise. denies: fever Eyes: denies: eye discharge ENT: denies: congestion Respiratory: denies: wheezing Cardiovascular: chest pain. denies: syncope Gastrointestinal: denies: vomiting Genitourinary: denies: dysuria Musculoskeletal: back pain Skin: as per HPI Neurological: as per HPI Psychiatric: as per HPI Hematological/Lymphatic: as per HPI Medications and Allergies Allergies Allergy/AdvReac Type Severity Reaction Status Date / Time lisinopril Allergy Unknown Verified 08/31/19 17:49 metoprolol Allergy Unknown Verified 08/31/19 17:49 tramadol Allergy Unknown Verified 08/31/19 17:49 Home Medications Medication Instructions Recorded Confirmed Last Taken Type AtorvaSTATin [Lipitor] 40 mg PO QHS #30 tablet 08/08/16 08/31/19 Unknown Rx ISOSORBIDE MONOnitrate [Imdur ER] 30 mg PO QDAY #30 tablet 08/08/16 08/31/19 Unknown Rx Albuterol Sulfate [Proair 90 mcg IH Q4HR PRN 08/31/19 08/31/19 Unknown History Respiclick] Aspirin [Adult Aspirin] 81 mg PO DAILY 08/31/19 08/31/19 Unknown History Gabapentin 1 cap PO QHS 08/31/19 08/31/19 Unknown History Levothyroxine [Synthroid] 1 tab PO DAILY 08/31/19 08/31/19 Unknown History Metformin HCl [metFORMIN] 1,000 mg PO BID 08/31/19 08/31/19 Unknown History Olmesartan (Nf) [Benicar (Nf)] 5 mg PO QDAY 08/31/19 08/31/19 Unknown History Omeprazole 40 mg PO DAILY 08/31/19 08/31/19 Unknown History Sitagliptin Phosphate [Januvia] 1 tab PO DAILY 08/31/19 08/31/19 Unknown History hydroCHLOROthiazide [HCTZ] 1 tab PO DAILY 08/31/19 08/31/19 Unknown History Active Meds: Active Medications Nitroglycerin (Nitrostat) 0.4 mg SL .Q5MIN PRN PRN Reason: Chest Pain Exam - Constitutional Vitals: Temp Pulse Resp BP Pulse Ox 98.6 F 70 23 157/100 97 08/31/19 12:47 08/31/19 19:16 08/31/19 19:16 08/31/19 19:16 08/31/19 12:47 General appearance: Present: no acute distress, well-nourished - EENT Eyes: Present: PERRL ENT: hearing intact, clear oral mucosa - Neck Neck: Present: supple, normal ROM - Respiratory Respiratory effort: normal Respiratory: bilateral: CTA - Cardiovascular Heart rate: 78 Rhythm: regular Heart Sounds: Present: S1 & S2. Absent: rub, click - Extremities Extremities: no ischemia, pulses intact, pulses symmetrical, No edema Peripheral Pulses: within normal limits - Abdominal General gastrointestinal: Present: soft, non-tender, non-distended, normal bowel sounds Female genitourinary: Present: normal - Integumentary Integumentary: Present: clear, warm, dry - Musculoskeletal Musculoskeletal: gait normal, strength equal bilaterally - Psychiatric Psychiatric: appropriate mood/affect, intact judgment & insight - Neurologic Neurologic: CNII-XII intact, moves all extremities - Allied Health Allied health notes reviewed: nursing, case management HEART Score - HEART Score History: Highly suspicious EKG: Non-specific Age: 45-65 Risk factors: > 3 risk factors or hx of atherosclerotic disease Troponin: Troponin T < 0.010 ng/mL (0.00-0.029) 08/31/19 19:27 Troponin: < normal limit HEART Score: 6 - Critical Actions Critical Actions: 4-6 pts:12-16.6% risk of adverse cardiac event. Should be admitted Results - Labs CBC & Chem 7: 08/31/19 13:50 08/31/19 13:50 Labs: Laboratory Last Values WBC 5.5 K/mm3 (4.5-11.0) 08/31/19 13:50 RBC 4.33 M/mm3 (3.65-5.03) 08/31/19 13:50 Hgb 13.8 gm/dl (10.1-14.3) 08/31/19 13:50 Hct 39.9 % (30.3-42.9) 08/31/19 13:50 MCV 92 fl (79-97) 08/31/19 13:50 MCH 32 pg (28-32) 08/31/19 13:50 MCHC 35 % (30-34) H 08/31/19 13:50 RDW 13.6 % (13.2-15.2) 08/31/19 13:50 Plt Count 240 K/mm3 (140-440) 08/31/19 13:50 Lymph % (Auto) 31.3 % (13.4-35.0) 08/31/19 13:50 [place] % (Auto) 10.3 % (0.0-7.3) H 08/31/19 13:50 Eos % (Auto) 2.6 % (0.0-4.3) 08/31/19 13:50 Baso % (Auto) [place] 08/31/19 13:50 Lymph # 1.7 K/mm3 (1.2-5.4) 08/31/19 13:50 [place] # 0.6 K/mm3 (0.0-0.8) 08/31/19 13:50 Eos # 0.1 K/mm3 (0.0-0.4) 08/31/19 13:50 Baso # 0.0 K/mm3 (0.0-0.1) 08/31/19 13:50 Seg Neutrophils % 55.2 % (40.0-70.0) 08/31/19 13:50 Seg Neutrophils # 3.0 K/mm3 (1.8-7.7) 08/31/19 13:50 Sodium 141 mmol/L (137-145) 08/31/19 13:50 Potassium 4.0 mmol/L (3.6-5.0) 08/31/19 13:50 Chloride 103.3 mmol/L (98-107) 08/31/19 13:50 Carbon Dioxide 23 mmol/L (22-30) 08/31/19 13:50 Anion Gap 19 mmol/L 08/31/19 13:50 BUN 24 mg/dL (7-17) H 08/31/19 13:50 Creatinine 0.7 mg/dL (0.7-1.2) 08/31/19 13:50 Estimated GFR > 60 ml/min 08/31/19 13:50 BUN/Creatinine Ratio 34 % 08/31/19 13:50 Glucose 178 mg/dL (65-100) H 08/31/19 13:50 Calcium 8.7 mg/dL (8.4-10.2) 08/31/19 13:50 Troponin T < 0.010 ng/mL (0.00-0.029) 08/31/19 19:27 Short CBC 08/31/19 Range/Units 13:50 WBC 5.5 (4.5-11.0) K/mm3 Hgb 13.8 (10.1-14.3) gm/dl Hct 39.9 (30.3-42.9) % Plt Count 240 (140-440) K/mm3 BMP 08/31/19 13:50 Sodium 141 Potassium 4.0 Chloride 103.3 Carbon Dioxide 23 BUN 24 H Creatinine 0.7 Glucose 178 H Calcium 8.7 Cardiac Enzymes 08/31/19 08/31/19 08/31/19 Range/Units 13:50 16:04 19:27 Troponin T < 0.010 < 0.010 < 0.010 (0.00-0.029) ng/mL 08/31/19 09/01/19 Range/Units 23:40 04:35 Troponin T < 0.010 < 0.010 (0.00-0.029) ng/mL - Imaging and Cardiology EKG: report reviewed (NSR 60/min LAFB Non specifiv t wave abnormalities) Chest x-ray: report reviewed Assessment and Plan Advance Directives: Yes (Full code) VTE prophylaxis?: Chemical Plan of care discussed with patient/family: Yes - Patient Problems (1) Acute chest pain Current Visit: Yes Status: Acute Plan to address problem: Chest pain protocol Serial troponins Lexiscan in AM Cardiology consult (2) CAD (coronary artery disease) Current Visit: Yes Status: Chronic Qualifiers: Coronary Disease-Associated Artery/Lesion type: [place] artery [place] vs. transplanted heart: [place] heart Associated angina: with unspecified angina Qualified Code(s): I25.119 - Atherosclerotic heart disease of [place] coronary artery with unspecified angina pectoris Plan to address problem: Cont Ismo and ASA (3) HTN (hypertension) Current Visit: No Status: Chronic Qualifiers: Hypertension type: essential hypertension Qualified Code(s): I10 - Essential (primary) hypertension Plan to address problem: Conrt antihypertensives (4) Hypothyroidism Current Visit: No Status: Chronic Qualifiers: Hypothyroidism type: acquired Qualified Code(s): E03.9 - Hypothyroidism, unspecified Plan to address problem: Cont synthyroid (5) Asthma Current Visit: Yes Status: Inactive Plan to address problem: Bronchodilators prn (6) T2DM (type 2 diabetes mellitus) Current Visit: Yes Status: Chronic Qualifiers: Diabetes mellitus intermediate insulin use: unspecified intermediate insulin use status Plan to address problem: Cont hypoglycemics and coverage (7) DVT prophylaxis Current Visit: Yes Status: Acute Plan to address problem: On Heparin and GI prophylaxis
[2019-08-31] MEDS ORDERED: NON-FORMULARY EACH (Albuterol Sulfate [Proair Respiclick] 90 MCG) IH PRN (21:32)
[2019-08-31] MEDS ORDERED: ALBUTEROL 2.5 MG/3 ML NEBU IH PRN (21:39)
[2019-08-31] MEDS ORDERED: GABAPENTIN 300 MG CAP ONE (23:29)
[2019-08-31] MEDS ORDERED: hydroCHLOROthiazide 25 MG TAB ONE (23:30)
[2019-08-31] MEDS: GABAPENTIN 300 MG CAP PO SCH (23:35)
[2019-08-31] MEDS: hydroCHLOROthiazide 25 MG TAB PO SCH (23:35)
[2019-09-01] MEDS: ASPIRIN EC 81 MG TAB PO SCH ×2 (00:11→09:32)
[2019-09-01] MEDS: INSULIN LISPRO 100 UNIT/ML SUB-Q SCH ×5 (02:53→21:30)
[2019-09-01] MEDS ORDERED: metFORMIN 500 MG TAB ONE (08:54)
[2019-09-01] MEDS ORDERED: PANTOPRAZOLE 40 MG TAB PO ONE (08:54)
[2019-09-01] MEDS ORDERED: ASPIRIN 81 MG TAB CHEW ONE (08:54)
[2019-09-01] MEDS ORDERED: hydroCHLOROthiazide 25 MG TAB ONE (08:55)
[2019-09-01] MEDS: metFORMIN 500 MG TAB PO SCH ×2 (09:28→18:30)
[2019-09-01] MEDS: PANTOPRAZOLE 40 MG TAB PO SCH (09:29)
[2019-09-01] MEDS: LINAGLIPTIN 5 MG TAB PO SCH (09:29)
[2019-09-01] MEDS: hydroCHLOROthiazide 25 MG TAB PO SCH (09:29)
[2019-09-01] MEDS: LOSARTAN 50 MG TAB PO SCH (09:36)
[2019-09-01] MEDS ORDERED: REGADENOSON 0.4 MG/5 ML INJ IV ONE ×2 (09:46→09:48)
--- NOTE | 2019-09-01 09:49 | Consultation ---
History of Present Illness Consult date: 09/01/19 Requesting physician: BECKY JONES Consult reason: chest pain History of present illness: The patient is a 63 year old female with a past medical history of CAD, s/p NSTEMI and PCI of RCA on 06/24/2016, hypertension, diabetes, hyperlipidemia, COPD, former tobacco use. She is followed in our office by Dr. Locke. She presented with c/o chest pain for the past 2-3 days. She describes the pain as a constant midsternal and left-sided pressure which radiates into her neck, jaw, upper back and down her left arm. She states that this feels "exactly like my last heart attack." The pain is aggravated by light exertion (climbing flight of stairs). The pain is associated with some SOB. She denies any palpitations, n/v, diaphoresis, dizziness or syncope. LHC 06/24/2016 done revealed mild disease in the LAD (10 to 20%) totally occluded mid part of the right coronary artery with left to right collaterals and also 80% stenosis in the distal RCA, s/p PCI of RCA. Lexiscan MPI stress test done 01/2018 showed small mild reversible apical septal perfusion defect, normal EF. Echo 08/05/2016 revealed EF 55-60%. Past History Past Medical History: other (as per HPI) Medications and Allergies Allergies Allergy/AdvReac Type Severity Reaction Status Date / Time lisinopril Allergy Unknown Verified 08/31/19 17:49 metoprolol Allergy Unknown Verified 08/31/19 17:49 tramadol Allergy Unknown Verified 08/31/19 17:49 Home Medications Medication Instructions Recorded Confirmed Last Taken Type AtorvaSTATin [Lipitor] 40 mg PO QHS #30 tablet 08/08/16 08/31/19 Unknown Rx ISOSORBIDE MONOnitrate [Imdur ER] 30 mg PO QDAY #30 tablet 08/08/16 08/31/19 Unknown Rx Albuterol Sulfate [Proair 90 mcg IH Q4HR PRN 08/31/19 08/31/19 Unknown History Respiclick] Aspirin [Adult Aspirin] 81 mg PO DAILY 08/31/19 08/31/19 Unknown History Gabapentin 1 cap PO QHS 08/31/19 08/31/19 Unknown History Levothyroxine [Synthroid] 1 tab PO DAILY 08/31/19 08/31/19 Unknown History Metformin HCl [metFORMIN] 1,000 mg PO BID 08/31/19 08/31/19 Unknown History Olmesartan (Nf) [Benicar (Nf)] 5 mg PO QDAY 08/31/19 08/31/19 Unknown History Omeprazole 40 mg PO DAILY 08/31/19 08/31/19 Unknown History Sitagliptin Phosphate [Januvia] 1 tab PO DAILY 08/31/19 08/31/19 Unknown History hydroCHLOROthiazide [HCTZ] 1 tab PO DAILY 08/31/19 08/31/19 Unknown History Active Meds: Active Medications Albuterol (Proventil) 2.5 mg IH Q4HRT PRN PRN Reason: Shortness Of Breath Aspirin (Halfprin Ec) 81 mg PO DAILY [facility] Last Admin: 09/01/19 09:32 Dose: 81 mg Documented by: Atorvastatin Calcium (Lipitor) 40 mg PO QHS [facility] Last Admin: 08/31/19 23:35 Dose: 40 mg Documented by: Gabapentin (Gabapentin) 300 mg PO QHS [facility] Last Admin: 08/31/19 23:35 Dose: 300 mg Documented by: Hydrochlorothiazide (Hctz) 25 mg PO DAILY [facility] Last Admin: 09/01/19 09:29 Dose: 25 mg Documented by: Insulin Human Lispro (Humalog) 0 unit SUB-Q ACHS [facility]; Protocol Last Admin: 09/01/19 09:36 Dose: Not Given Documented by: Isosorbide Mononitrate (Imdur) 30 mg PO QDAY [facility] Last Admin: 09/01/19 09:29 Dose: 30 mg Documented by: Levothyroxine Sodium (Synthroid) 125 mcg PO DAILY@0600 [facility] Linagliptin (Tradjenta) [facility] Last Admin: 09/01/19 09:29 Dose: 5 mg Documented by: Losartan Potassium (Cozaar) 50 mg PO QDAY [facility] Last Admin: 09/01/19 09:36 Dose: Not Given Documented by: Metformin HCl (Glucophage) 1,000 mg PO BIDDIAB [facility] Last Admin: 09/01/19 09:28 Dose: 1,000 mg Documented by: Nitroglycerin (Nitrostat) 0.4 mg SL .Q5MIN PRN PRN Reason: Chest Pain Pantoprazole Sodium (Protonix) 40 mg PO DAILY [facility] Last Admin: 09/01/19 09:29 Dose: 40 mg Documented by: Review of Systems Constitutional: no weight loss, no weight gain, no fever, no chills, no sweats Ears, nose, mouth and throat: no ear pain, no nose pain, no sinus pressure, no sinus pain Cardiovascular: chest pain, shortness of breath, decreased exercise tolerance, no orthopnea, no palpitations, no rapid/irregular heart beat, no edema, no syncope, no lightheadedness Respiratory: shortness of breath, no cough, no congestion, no wheezing, no pain on inspiration Gastrointestinal: no abdominal pain, no nausea, no vomiting, no diarrhea, no constipation, no change in bowel habits Genitourinary Female: no pelvic pain, no flank pain, no dysuria, no urinary frequency, no urgency Musculoskeletal: no neck stiffness, no neck pain, no shooting arm pain, no arm numbness/tingling, no low back pain, no shooting leg pain Integumentary: no rash, no pruritis, no redness, no sores, no wounds Neurological: no head injury, no paralysis, no weakness, no parathesias, no numbness, no tingling, no seizures, no syncope Psychiatric: no anxiety Endocrine: no cold intolerance, no heat intolerance Hematologic/Lymphatic: no easy bruising, no easy bleeding Allergic/Immunologic: no urticaria Physical Examination Vital Signs Temp Pulse Resp BP Pulse Ox 98.6 F 81 18 156/90 97 08/31/19 12:47 08/31/19 12:47 08/31/19 12:47 08/31/19 12:47 08/31/19 12:47 General appearance: no acute distress HEENT: Positive: PERRL, Normocephaly, Mucus Membranes Moist Neck: Positive: neck supple, trachea midline Cardiac: Positive: Reg Rate and Rhythm, S1/S2 Lungs: Positive: Decreased Breath Sounds Neuro: Positive: Grossly Intact Abdomen: Negative: Tender Skin: Negative: Rash Musculoskeletal: No Pain Extremities: Absent: edema Results 08/31/19 13:50 08/31/19 13:50 CBC 08/31/19 Range/Units 13:50 WBC 5.5 (4.5-11.0) K/mm3 RBC 4.33 (3.65-5.03) M/mm3 Hgb 13.8 (10.1-14.3) gm/dl Hct 39.9 (30.3-42.9) % Plt Count 240 (140-440) K/mm3 Lymph # 1.7 (1.2-5.4) K/mm3 [place] # 0.6 (0.0-0.8) K/mm3 Eos # 0.1 (0.0-0.4) K/mm3 Baso # 0.0 (0.0-0.1) K/mm3 Comprehensive Metabolic Panel 08/31/19 Range/Units 13:50 Sodium 141 (137-145) mmol/L Potassium 4.0 (3.6-5.0) mmol/L Chloride 103.3 (98-107) mmol/L Carbon Dioxide 23 (22-30) mmol/L BUN 24 H (7-17) mg/dL Creatinine 0.7 (0.7-1.2) mg/dL Glucose 178 H (65-100) mg/dL Calcium 8.7 (8.4-10.2) mg/dL - Imaging and Cardiology Echo: report reviewed (08/05/2016 revealed EF 55-60%. ) Cardiac cath: report reviewed ([facility] 06/24/2016 done revealed mild disease in the LAD (10 to 20%) totally occluded mid part of the right coronary artery with left to right collaterals and also 80% stenosis in the distal RCA, s/p PCI of RCA. ) EKG: report reviewed, image reviewed EKG interpretations - Telemetry EKG Rhythm: Sinus Rhythm - EKG Sinus rhythms and dysrhythmias: sinus rhythm Assessment and Plan AMI r/o. Proceed with lexiscan MPI stress test. Obtain echo. Await findings. The patient has been seen in conjunction with Dr. Mary Hodgson who agrees with the assessment and plan of care. - Patient Problems (1) Chest pain Current Visit: Yes Status: Acute (2) CAD (coronary artery disease) Current Visit: Yes Status: Chronic Qualifiers: Coronary Disease-Associated Artery/Lesion type: [place] artery [place] vs. transplanted heart: [place] heart Associated angina: with unspecified angina Qualified Code(s): I25.119 - Atherosclerotic heart disease of [place] coronary artery with unspecified angina pectoris (3) Stented coronary artery Current Visit: Yes Status: Chronic (4) HTN (hypertension) Current Visit: Yes Status: Chronic Qualifiers: Hypertension type: essential hypertension Qualified Code(s): I10 - Essential (primary) hypertension (5) Diabetes Current Visit: Yes Status: Chronic (6) Hyperlipidemia Current Visit: Yes Status: Chronic (7) COPD (chronic obstructive pulmonary disease) Current Visit: Yes Status: Chronic (8) Former tobacco use Current Visit: Yes Status: Chronic
--- NOTE | 2019-09-01 13:13 | Event Note ---
Date: 09/01/19 Lexiscan MPI stress test today which was positive for ischemia. Coronary angiography recommended for definitive diagnosis. Indications, potential risks and benefits of LHC reviewed with pt and she is agreeable to proceed with LHC in AM. NPO after MN. Optimize anti-ischemic regimen - pt unable to tolerate BB in the past due to arm tingling and nausea. Michelle ROSENBAUM NP / DR. Mary GRAF
[2019-09-01] MEDS ORDERED: SODIUM CHLORIDE 0.9% 500 ML 500 ML IV SCH (14:00)
[2019-09-01] MEDS ORDERED: INSULIN LISPRO 100 UNIT/ML SUB-Q ONE (14:05)
[2019-09-01] MEDS ORDERED: ACETAMINOPHEN 325 MG TAB ONE (14:09)
[2019-09-01] MEDS ORDERED: ACETAMINOPHEN 325 MG TAB PO ONE (14:18)
--- NOTE | 2019-09-01 20:53 | Progress Note ---
Assessment and Plan - Patient Problems (1) Acute coronary syndrome Current Visit: Yes Status: Acute Plan to address problem: Lexiscan MPI stress test today which was positive for ischemia. Coronary angiography recommended for definitive diagnosis. Indications, potential risks and benefits of LHC reviewed with pt and she is agreeable to proceed with LHC in AM. NPO after MN. Optimize anti-ischemic regimen - pt unable to tolerate BB in the past due to arm tingling and nausea. (2) CAD (coronary artery disease) Current Visit: Yes Status: Chronic Qualifiers: Coronary Disease-Associated Artery/Lesion type: [place] artery [place] vs. transplanted heart: [place] heart Associated angina: with unspecified angina Qualified Code(s): I25.119 - Atherosclerotic heart disease of [place] coronary artery with unspecified angina pectoris Plan to address problem: Cont Ismo and ASA (3) HTN (hypertension) Current Visit: Yes Status: Chronic Qualifiers: Hypertension type: essential hypertension Qualified Code(s): I10 - [place] l (primary) hypertension Plan to address problem: Conrt antihypertensives (4) Hypothyroidism Current Visit: No Status: Chronic Qualifiers: Hypothyroidism type: acquired Qualified Code(s): E03.9 - Hypothyroidism, unspecified Plan to address problem: Cont synthyroid (5) T2DM (type 2 diabetes mellitus) Current Visit: Yes Status: Chronic Qualifiers: Diabetes mellitus exterminator helper insulin use: unspecified half-way insulin use status Plan to address problem: Cont hypoglycemics and coverage (6) DVT prophylaxis Current Visit: Yes Status: Acute Plan to address problem: On Heparin and GI prophylaxis Subjective Date of service: 09/01/19 Principal diagnosis: Acute coronary syndrome Interval history: 63-year-old female. She presents to the ER with "I think I am having another heart attack." She complains of retrocentral and left-sided chest pressure and discomfort, which moves to her neck, jaw and back. She states that this feels "exactly like my last heart attack." Her past medical history includes diabetes, hypertension, COPD, heart disease, with stents.zPain is 8/10.No exacerbating or relieving factors The patient was hospitalized for non-ST elevation myocardial infarction at this institution in 2017. She had a catheterization performed, with successful PCI of 100% mid RCA, with drug-eluting stent, distal RCA at the bifurcation, reduced stenosis from 80% down to 20% balloon only angioplasty, goes into small caliber PDA and PLV. Left main is found to be patent, LAD mid diffuse 10 to 20%, diagonal 1 patent, circumflex patent, OM1, OM 2 patent. LV function was also noted to be within normal limits. The patient is currently on aspirin therapy which she has been compliant with, and is no longer taking Brilinta. She stopped tobacco consumption last month. She still consumes cannabis recreationally. She denies DVT and pulmonary embolism risk factors. She denies fever, cough, and coronavirus symptomatology and risk factors. Her pain is rated as a 8 out of 10 at this time. There is no complaint of headache, abdominal pain, hematemesis or bright red blood per rectum. Patient had Lexiscan today and was positive for perfusion defects and going for left heart catheterization tomorrow Objective - Constitutional Vitals: Vital Signs - 12hr 09/01/19 09/01/19 09/01/19 09:29 09:31 09:40 Temperature Pulse Rate 100 H Respiratory Rate Blood Pressure 137/67 137/67 148/74 O2 Sat by Pulse 98 Oximetry 09/01/19 09/01/19 09/01/19 11:38 12:09 12:10 Temperature Pulse Rate Respiratory Rate Blood Pressure 143/69 167/81 166/77 O2 Sat by Pulse Oximetry 09/01/19 09/01/19 09/01/19 12:12 12:14 12:16 Temperature Pulse Rate Respiratory Rate Blood Pressure 119/57 146/68 142/64 O2 Sat by Pulse Oximetry 09/01/19 09/01/19 09/01/19 12:17 13:00 14:00 Temperature Pulse Rate 77 Respiratory 16 Rate Blood Pressure 130/68 147/73 132/71 O2 Sat by Pulse 98 Oximetry 09/01/19 09/01/19 17:16 19:49 Temperature 97.3 F L 98.2 F Pulse Rate Respiratory 18 16 Rate Blood Pressure 113/70 125/73 O2 Sat by Pulse Oximetry General appearance: Present: no acute distress, well-nourished - EENT Eyes: PERRL, EOM intact ENT: hearing intact, clear oral mucosa Ears: bilateral: normal - Neck Neck: supple, normal ROM - Respiratory Respiratory effort: normal Respiratory: bilateral: CTA - Breasts Breasts: normal - Cardiovascular Heart rate: 78 Rhythm: regular Heart Sounds: Present: S1 & S2. Absent: gallop, rub Extremities: pulses intact, No edema, normal color, Full ROM - Gastrointestinal General gastrointestinal: Present: soft, non-tender, non-distended, normal bowel sounds - Genitourinary Female genitourinary: normal - Integumentary Integumentary: clear, warm, dry - Musculoskeletal Musculoskeletal: 1, strength equal bilaterally - Neurologic Neurologic: moves all extremities - Psychiatric Psychiatric: memory intact, appropriate mood/affect, intact judgment & insight - Labs CBC & Chem 7: 08/31/19 13:50 08/31/19 13:50 Labs: Abnormal lab results 09/01/19 09/01/19 09/01/19 Range/Units 02:13 08:50 13:42 POC Glucose 152 H 156 H 174 H (70-105) 09/01/19 Range/Units 18:26 POC Glucose 141 H (70-105) HEART Score - HEART Score EKG: Non-specific Age: 45-65 Risk factors: > 3 risk factors or hx of atherosclerotic disease Troponin: Troponin T < 0.010 ng/mL (0.00-0.029) 09/01/19 16:39 Troponin: < normal limit - Critical Actions Critical Actions: 4-6 pts:12-16.6% risk of adverse cardiac event. Should be admitted
[2019-09-01] MEDS: GABAPENTIN 300 MG CAP PO SCH (21:28)
[2019-09-02 04:42] LABS: Basophils % (Auto) 0.8 % (0.0-1.8); Eosinophils # (Auto) 0.2 K/mm3 (0.0-0.4); Eosinophils % (Auto) 2.9 % (0.0-4.3); Hematocrit 36.8 % (30.3-42.9); Hemoglobin 12.5 gm/dl (10.1-14.3); Lymphocytes # (Auto) 2.4 K/mm3 (1.2-5.4); Lymphocytes % (Auto) 40.7 % (13.4-35.0); Mean Corpuscular HGB Conc 34 % (30-34); Mean Corpuscular Volume 93 fl (79-97); Monocytes # (Auto) 0.7 K/mm3 (0.0-0.8); Monocytes % (Auto) 11.9 % (0.0-7.3); Platelet Count 217 K/mm3 (140-440); Red Blood Count 3.97 M/mm3 (3.65-5.03); Red Cell Distribution Width 13.3 % (13.2-15.2)
[2019-09-02 04:52] LABS: INR 0.9 (0.87-1.13)
[2019-09-02 04:58] LABS: BUN/Creatinine Ratio 30; Blood Urea Nitrogen 18 mg/dL (7-17); Calcium 8.5 mg/dL (8.4-10.2); Hemolysis Index 5
[2019-09-02] MEDS: LEVOTHYROXINE 125 MCG TAB PO SCH (07:58)
[2019-09-02] MEDS: INSULIN LISPRO 100 UNIT/ML SUB-Q SCH ×2 (07:59→14:16)
[2019-09-02] MEDS ORDERED: ASPIRIN EC 325 MG TAB PO ONE (08:11)
[2019-09-02] MEDS ORDERED: SODIUM CHLORIDE 0.9% 500 ML 500 ML ONE (08:11)
[2019-09-02] MEDS ORDERED: ASPIRIN 325 MG TAB ONE (08:13)
[2019-09-02] MEDS ORDERED: VERAPAMIL 5 MG/2 ML INJ ONE (08:14)
[2019-09-02] MEDS ORDERED: fentaNYL 100 MCG/2 ML INJ ONE (08:14)
[2019-09-02] MEDS ORDERED: HEPARIN/NS 5000 UNIT/500ML 1,000 ML IR ONE (08:14)
[2019-09-02] MEDS ORDERED: MIDAZOLAM 2 MG/2 ML INJ ONE (08:14)
[2019-09-02] MEDS ORDERED: NITROGLYCERIN SYRINGE 3 ML ONE (08:15)
[2019-09-02] MEDS: ASPIRIN 325 MG TAB PO SCH ×2 (08:17→10:50)
[2019-09-02] MEDS: SODIUM CHLORIDE 0.9% 500 ML 500 ML IV SCH ×2 (08:19→08:45)
[2019-09-02] MEDS: LIDOCAINE (2%) 20 MG/1 ML VIAL 20 ML MDV INFILTRATI ONE ×2 (08:55→08:56)
[2019-09-02] MEDS: HEPARIN 10,000 UNITS/10 ML VIAL ONE ×2 (08:55→08:58)
--- NOTE | 2019-09-02 09:30 | Progress Note ---
Assessment and Plan S/p C this AM which showed mild/minimal nonobstructive CAD, patent mid RCA stent, EF 55-60%. Await echo. Currently stable cardiac status. Pt may discharge from cardiology standpoint following completion of post-cath order set. Recommend pt follow up in our office with Dr. Locke within 2 weeks ([phone]). The patient has been seen in conjunction with Dr. Mary Hodgson who agrees with the assessment and plan of care. - Patient Problems (1) Chest pain Current Visit: Yes Status: Acute (2) CAD (coronary artery disease) Current Visit: Yes Status: Chronic Qualifiers: Coronary Disease-Associated Artery/Lesion type: [place] artery [place] vs. transplanted heart: [place] heart Associated angina: with unspecified angina Qualified Code(s): I25.119 - Atherosclerotic heart disease of [place] coronary artery with unspecified angina pectoris (3) Stented coronary artery Current Visit: Yes Status: Chronic (4) HTN (hypertension) Current Visit: Yes Status: Chronic Qualifiers: Hypertension type: essential hypertension Qualified Code(s): I10 - Essential (primary) hypertension (5) Diabetes Current Visit: Yes Status: Chronic (6) Hyperlipidemia Current Visit: Yes Status: Chronic (7) COPD (chronic obstructive pulmonary disease) Current Visit: Yes Status: Chronic (8) Former tobacco use Current Visit: Yes Status: Chronic Subjective Date of service: 09/02/19 Principal diagnosis: Acute coronary syndrome Interval history: pt for [facility] [place], no current cardiac complaints. in SR on tele. Objective Last Vital Signs Temp 97.6 F 09/02/19 03:15 Pulse 62 09/02/19 03:15 Resp 16 09/02/19 03:15 BP 127/75 09/02/19 03:15 Pulse Ox 96 09/02/19 03:15 - Physical Examination General: No Apparent Distress HEENT: Positive: PERRL, Normocephaly, Mucus Membranes Moist Neck: Positive: neck supple, trachea midline Cardiac: Positive: Reg Rate and Rhythm, S1/S2 Lungs: Positive: Decreased Breath Sounds Neuro: Positive: Grossly Intact Abdomen: Negative: Tender Skin: Negative: Rash Musculoskeletal: No Pain Extremities: Absent: edema - Labs and Meds Coagulation 09/02/19 Range/Units 04:18 PT 12.3 (12.2-14.9) Sec. INR 0.90 (0.87-1.13) CBC 09/02/19 Range/Units 04:18 WBC 5.8 (4.5-11.0) K/mm3 RBC 3.97 (3.65-5.03) M/mm3 Hgb 12.5 (10.1-14.3) gm/dl Hct 36.8 (30.3-42.9) % Plt Count 217 (140-440) K/mm3 Lymph # 2.4 (1.2-5.4) K/mm3 [place] # 0.7 (0.0-0.8) K/mm3 Eos # 0.2 (0.0-0.4) K/mm3 Baso # 0.0 (0.0-0.1) K/mm3 Comprehensive Metabolic Panel 09/02/19 Range/Units 04:18 Sodium 140 (137-145) mmol/L Potassium 3.9 (3.6-5.0) mmol/L Chloride 104.3 (98-107) mmol/L Carbon Dioxide 26 (22-30) mmol/L BUN 18 H (7-17) mg/dL Creatinine 0.6 L (0.7-1.2) mg/dL Glucose 135 H (65-100) mg/dL Calcium 8.5 (8.4-10.2) mg/dL - Imaging and Cardiology EKG: report reviewed, image reviewed Echo: report reviewed (08/05/2016 revealed EF 55-60%. ) Cardiac cath: report reviewed ([facility] [place] 06/24/2016 done revealed mild disease in the LAD (10 to 20%) totally occluded mid part of the right coronary artery with left to right collaterals and also 80% stenosis in the distal RCA, s/p PCI of RCA. ) - Telemetry EKG Rhythm: Sinus Rhythm - EKG Sinus rhythms and dysrhythmias: sinus rhythm
--- NOTE | 2019-09-02 09:39 | Cardiac Catherization Report ---
CARDIAC CATHETERIZATION REFERRING PHYSICIAN: Hospitalist service. INDICATIONS FOR PROCEDURE: The patient is a pleasant 63-year-old -[place] female with multiple risk factors, prior PCI, tobacco abuse, presents here for unstable angina, had abnormal stress test with inferoapical ischemia. She is referred for left heart catheterization. Risks, benefits, and alternatives explained at length prior to obtaining informed consent. PROCEDURE IN DETAIL: The patient was brought to catheterization lab in a postabsorptive state, prepped and draped in sterile fashion. Tito's test in right hand was normal. A 2 mL of 2% lidocaine used to anesthetize the right wrist. A standard 6-Syri[place] hydrophilic sheath used to cannulate the right radial artery via modified Seldinger technique. All exchanges performed to exchange a J-tip guidewire. JL3.5 catheter was used to engage the left main. No dampening or ventricularization. Cineangiography performed in all projections. JR4 catheter was used to cross the aortic valve under fluoroscopic guidance. Left ventriculography performed in 30 SEGURA and 30 CATHIE projections via hand injections, catheter flushed. Manual pullback performed with continuous pressure monitoring. Catheter used to engage the right coronary. No dampening or ventricularization. Cineangiography performed in all projections. Due to unremarkable coronaries, hypertension, recurrent chest pain, root aortography was performed in the CATHIE projection with power injector and a pigtail catheter. Next, catheter was removed from the body of wire, sheath removed. Manual pressure used to achieve hemostasis. I directly supervised the administration of moderate sedation with fentanyl and Versed from 8:50 a.m. to 9:20 a.m. DATA: Aortic pressure is 150/60, LV pressure is 150, LVP of 16 mmHg. Left ventriculography revealed normal systolic performance with estimated ejection fraction of 55-60%. No evidence of aortic stenosis. CORONARY ANATOMY: Right dominant system. Right coronary is a moderate sized vessel, courses AV groove, distally bifurcates in the posterior and posterolateral branch. Stent in the mid right coronary is widely patent. Mild scattered luminal irregularities, but no other obstructive disease is identified. Root aortography reveals normal contour, normal great vessel anatomy, no evidence of aortic insufficiency. No dissection or penetrating aortic ulcer. Mildly calcified aortic root. Left main without significant disease, bifurcates left anterior descending and left circumflex. No disease in left main. Left circumflex, moderate sized vessel, courses AV groove. No significant disease, gives off large OM1 trunk. No significant disease. LAD is a moderate sized vessel, courses anterior intergroove, wraps around the apex, normal tapering distally. Scattered luminal irregularities, but no obstructive disease identified. CONCLUSIONS: 1. Mild /minimal nonobstructive coronary artery disease in this right dominant system. A. Patent mid right coronary stent. 2. Normal left ventricular systolic performance, estimated ejection fraction of 55-60% without evidence of aortic stenosis. 3. Normal LVEDP. 4. Normal root aortography without evidence of dissection, penetrating aortic ulcer or aortic insufficiency. The patient is clinically stable, chest pain free, doing well. Aggressive risk factor modification discussed, discussed smoking cessation for approximately 5 minutes. The patient is clinically stable, standard radial care. Follow up with us in the office. Stable cardiac status. JOB# [id number] SBM/NTS
--- NOTE | 2019-09-02 10:24 | Treadmill Report ---
NUCLEAR PERFUSION SCAN REFERRING PHYSICIAN: Hospitalist service. PROTOCOL: The patient was 7 postoperative state, given 10 mCi of technetium 99m at rest. The patient underwent rest imaging. The patient underwent Lexiscan stress test per standard protocol. At peak stress, patient was given 26 mCi of technetium 99m. Shortly thereafter, the patient underwent stress imaging. Raw imaging reveals some GI artifact. No significant motion artifact. SPECT imaging is examined carefully in horizontal long axis, vertical long axis, short axis views. There is a moderate size reversible inferior apical defect suggestive of ischemia, normal left ventricular systolic performance, calculated ejection fraction is 60%. No TID. CONCLUSIONS: 1. Abnormal myocardial perfusion scan with moderate sized inferior apical defect, which is reversible and suggestive of ischemia. 2. Normal left ventricular systolic performance without evidence of transient ischemic dilatation or stress-induced segmental wall motion abnormalities. Suggest clinical correlation. JOB# [id number] GRACE/BETH
[2019-09-02] MEDS: PANTOPRAZOLE 40 MG TAB PO SCH (10:49)
[2019-09-02] MEDS: LINAGLIPTIN 5 MG TAB PO SCH (10:49)
[2019-09-02] MEDS: metFORMIN 500 MG TAB PO SCH (10:50)
[2019-09-02] MEDS: LOSARTAN 50 MG TAB PO SCH (10:50)
[2019-09-02] MEDS: hydroCHLOROthiazide 25 MG TAB PO SCH (10:50)
[2019-09-02 17:59] VITALS: BP 115/67
--- NOTE | 2019-09-02 17:59 | Discharge Summary ---
Providers - Providers Date of Admission: 08/31/19 16:40 Date of discharge: 09/02/19 Attending physician: ALEJANDRA JULIAN 08/31/19 16:31 Consult to Physician [CONS] Urgent Comment: Consulting Provider: CHARLETTE LAYTON Physician Instructions: Reason For Exam: unstable angina 09/02/19 09:47 Consult to Cardiac Rehabilitation [CONS] Routine Reason For Exam: Cardiac Rehab Evaluation Primary care physician: GAGAN MCDOWELL Hospitalization Condition: Stable Hospital course: S/p LHC this AM which showed mild/minimal nonobstructive CAD, patent mid RCA stent, EF 55-60%. Await echo. Disposition: DC- TO HOME OR SELFCARE - Discharge Diagnoses (1) Acute coronary syndrome Status: Acute (2) CAD (coronary artery disease) Status: Chronic Qualifiers: Coronary Disease-Associated Artery/Lesion type: [place] artery [place] vs. transplanted heart: [place] heart Associated angina: with unspecified angina Qualified Code(s): I25.119 - Atherosclerotic heart disease of [place] coronary artery with unspecified angina pectoris (3) HTN (hypertension) Status: Chronic Qualifiers: Hypertension type: essential hypertension Qualified Code(s): I10 - Essential (primary) hypertension (4) Hypothyroidism Status: Chronic Qualifiers: Hypothyroidism type: acquired Qualified Code(s): E03.9 - Hypothyroidism, unspecified (5) T2DM (type 2 diabetes mellitus) Status: Chronic Qualifiers: Diabetes mellitus medical terminologist insulin use: unspecified medical terminologist insulin use status (6) DVT prophylaxis Status: Acute Exam - Constitutional Vitals: Temp Pulse Resp BP Pulse Ox 98.0 F 62 18 139/65 99 09/02/19 12:33 09/02/19 12:33 09/02/19 12:33 09/02/19 12:33 09/02/19 12:33 Plan Follow up with: GAGAN MCDOWELL MD [Primary Care Provider] - 3-5 Days
--- NOTE | 2019-09-02 18:04 | Discharge Summary ---
Providers - Providers Date of Admission: 08/31/19 16:40 Date of discharge: 09/02/19 Attending physician: ALEJANDRA JULIAN 08/31/19 16:31 Consult to Physician [CONS] Urgent Comment: Consulting Provider: CHARLETTE LAYTON Physician Instructions: Reason For Exam: unstable angina 09/02/19 09:47 Consult to Cardiac Rehabilitation [CONS] Routine Reason For Exam: Cardiac Rehab Evaluation Primary care physician: GAGAN MCDOWELL Hospitalization Condition: Stable Procedures: Cardiac cath done by Dr. Hodgson. Mild to minimal nonobstructive coronary artery disease in the right dominant system. Patent mid right coronary stent. Normal left ventricular systolic performance estimated ejection fraction of 55 to 60% without evidence of aortic stenosis. Normal LVEDP Normal root aortography without evidence of dissection penetrating aortic ulcer or aortic insufficiency. Hospital course: Patient was admitted for chest pain rule out [place]. Stress test was positive for some ischemic changes. Hence patient was taken for left heart catheterization which was normal. Patient being discharged by medical treatment. Discharge diagnosis (1) Acute coronary syndrome Current Visit: Yes Status: Acute Plan to address problem: Lexiscan MPI stress test today which was positive for ischemia. Coronary angiography recommended for definitive diagnosis. Indications, potential risks and benefits of LHC reviewed with pt and she is agreeable to proceed with LHC in AM. NPO after MN. Optimize anti-ischemic regimen - pt unable to tolerate BB in the past due to arm tingling and nausea. (2) CAD (coronary artery disease) Current Visit: Yes Status: Chronic Qualifiers: Coronary Disease-Associated Artery/Lesion type: [place] artery [place] vs. transplanted heart: [place] heart Associated angina: with unspecified angina Qualified Code(s): I25.119 - Atherosclerotic heart disease of [place] coronary artery with unspecified angina pectoris Plan to address problem: Cont Ismo and ASA (3) HTN (hypertension) Current Visit: Yes Status: Chronic Qualifiers: Hypertension type: essential hypertension Qualified Code(s): I10 - Essential (primary) hypertension Plan to address problem: Conrt antihypertensives (4) Hypothyroidism Current Visit: No Status: Chronic Qualifiers: Hypothyroidism type: acquired Qualified Code(s): E03.9 - Hypothyroidism, unspecified Plan to address problem: Cont synthyroid (5) T2DM (type 2 diabetes mellitus) Current Visit: Yes Status: Chronic Qualifiers: Diabetes mellitus fdc insulin use: unspecified ocean transportation intermediary insulin use status Plan to address problem: Cont hypoglycemics and coverage Disposition: DC-01 TO HOME OR SELFCARE Time spent for discharge: 35 - Discharge Diagnoses (1) Acute coronary syndrome Status: Acute (2) CAD (coronary artery disease) Status: Chronic Qualifiers: Coronary Disease-Associated Artery/Lesion type: [place] artery [place] vs. transplanted heart: [place] heart Associated angina: with unspecified angina Qualified Code(s): I25.119 - Atherosclerotic heart disease of [place] coronary artery with unspecified angina pectoris (3) HTN (hypertension) Status: Chronic Qualifiers: Hypertension type: essential hypertension Qualified Code(s): I10 - Essential (primary) hypertension (4) Hypothyroidism Status: Chronic Qualifiers: Hypothyroidism type: acquired Qualified Code(s): E03.9 - Hypothyroidism, unspecified (5) T2DM (type 2 diabetes mellitus) Status: Chronic Qualifiers: Diabetes mellitus ocean transportation intermediary insulin use: unspecified fdc insulin use status (6) DVT prophylaxis Status: Acute Core Measure Documentation - Palliative Care Palliative Care/ Comfort Measures: Not Applicable - Core Measures Any of the following diagnoses?: none Exam - Constitutional Vitals: Temp Pulse Resp BP Pulse Ox 98.0 F 68 18 115/67 98 09/02/19 16:57 09/02/19 16:57 09/02/19 16:57 09/02/19 16:57 09/02/19 16:57 General appearance: Present: no acute distress, well-nourished - EENT Eyes: Present: PERRL ENT: hearing intact, clear oral mucosa - Neck Neck: Present: supple, normal ROM - Respiratory Respiratory effort: normal Respiratory: bilateral: CTA - Cardiovascular Heart rate: 78 Rhythm: regular Heart Sounds: Present: S1 & S2. Absent: rub, click - Extremities Extremities: pulses symmetrical, No edema Peripheral Pulses: within normal limits - Abdominal General gastrointestinal: Present: soft, non-tender, non-distended, normal bowel sounds Female genitourinary: Present: normal - Integumentary Integumentary: Present: clear, warm, dry - Musculoskeletal Musculoskeletal: gait normal, strength equal bilaterally - Psychiatric Psychiatric: appropriate mood/affect, intact judgment & insight - Neurologic Neurologic: CNII-XII intact, moves all extremities Plan Activity: no restrictions Diet: low salt, diabetic Follow up with: GAGAN MCDOWELL MD [Primary Care Provider] - 3-5 Days CHARLETTE LAYTON MD [Staff Physician] - 7 Days
== END 2019-09-02 21:30 | disposition home or self-care (01) ==
LOC: ED 12:42 → 4A 16:40
PROVIDERS: ADMIT Internal Medicine; ATTEND Internal Medicine
DX: I24.9 Acute ischemic heart disease, unspecified (principal); I25.119 Atherosclerotic heart disease of native coronary artery with unspecified angina pectoris; E03.9 Hypothyroidism, unspecified; E78.5 Hyperlipidemia, unspecified; J44.9 Chronic obstructive pulmonary disease, unspecified; E11.9 Type 2 diabetes mellitus without complications; I11.9 Hypertensive heart disease without heart failure; I25.2 Old myocardial infarction; K21.9 Gastro-esophageal reflux disease without esophagitis; Z87.891 Personal history of nicotine dependence; Z95.5 Presence of coronary angioplasty implant and graft; Z90.49 Acquired absence of other specified parts of digestive tract; Z98.51 Tubal ligation status; Z79.82 Long term (current) use of aspirin; Z79.899 Other long term (current) drug therapy; Z88.6 Allergy status to analgesic agent; Z88.8 Allergy status to other drugs, medicaments and biological substances; Z71.6 Tobacco abuse counseling
CPT/HCPCS: 36415; 71046; 78452; 80048; 82962; 84484; 85025; 85610; 93005; 93017; 93306; 93458; 99285; 99406; A9270; A9502; C1894; G0378; J1644; J2250; J2785; J3010; J7040; J1815; Q9967

== ENCOUNTER 2019-12-07 06:45 | Day surgery (SDC) | payer MEDICARE ==
[2019-12-07] MEDS ORDERED: SODIUM CHLORIDE 0.9% 500 ML 500 ML IV SCH (08:00)
[2019-12-07 08:26] LABS: Basophils # (Auto) 0.1 K/mm3 (0.0-0.1); Basophils % (Auto) 1.1 % (0.0-1.8); Eosinophils # (Auto) 0.2 K/mm3 (0.0-0.4); Eosinophils % (Auto) 2.6 % (0.0-4.3); Hematocrit 36.8 % (30.3-42.9); Hemoglobin 12.6 gm/dl (10.1-14.3); Lymphocytes # (Auto) 1.9 K/mm3 (1.2-5.4); Lymphocytes % (Auto) 28.1 % (13.4-35.0); Mean Corpuscular HGB Conc 34 % (30-34); Mean Corpuscular Volume 94 fl (79-97); Monocytes # (Auto) 0.7 K/mm3 (0.0-0.8); Monocytes % (Auto) 10.6 % (0.0-7.3); Platelet Count 279 K/mm3 (140-440); Red Blood Count 3.92 M/mm3 (3.65-5.03); Red Cell Distribution Width 13.8 % (13.2-15.2)
[2019-12-07 08:38] LABS: INR 0.93 (0.87-1.13)
[2019-12-07 08:39] LABS: Partial Thromboplastin Time 28.7 Sec. (24.2-36.6)
[2019-12-07 08:46] LABS: BUN/Creatinine Ratio 28; Blood Urea Nitrogen 22 mg/dL (7-17); Calcium 8.7 mg/dL (8.4-10.2); Hemolysis Index 3
[2019-12-07] MEDS ORDERED: HEPARIN/NS 5000 UNIT/500ML 1,000 ML IR ONE (09:02)
[2019-12-07] MEDS ORDERED: fentaNYL 100 MCG/2 ML INJ ONE (09:04)
[2019-12-07] MEDS ORDERED: MIDAZOLAM 2 MG/2 ML INJ ONE (09:04)
[2019-12-07] MEDS: VERAPAMIL 5 MG/2 ML INJ ONE ×2 (09:52→09:57)
[2019-12-07] MEDS: LIDOCAINE (2%) 20 MG/1 ML VIAL 20 ML MDV INFILTRATI ONE ×2 (09:52→09:55)
[2019-12-07] MEDS: HEPARIN 10,000 UNITS/10 ML VIAL ONE ×2 (09:54→09:57)
--- NOTE | 2019-12-07 10:55 | Cardiac Catherization Report ---
PERIPHERAL ARTERIOGRAM REPORT The patient is a 64-year-old -[place] female with history of hypertension, hyperlipidemia and known coronary artery disease with stent placement in the RCA, presently having claudication in the left lower extremity. Noninvasive studies showed evidence of severe disease in the left iliac system. Because of her severe symptoms in spite of medical treatment, she is scheduled for peripheral arteriogram for further delineation of the anatomy. The patient was explained of the procedure, potential complications and alternatives of therapy available. The patient's activities are very limited and she can walk maybe a block without calf pain. DESCRIPTION OF PROCEDURE: The patient was brought to the catheterization laboratory in a fasting condition. The patient was evaluated for moderate sedation and was felt to be appropriate candidate for moderate sedation. The patient was sedated with IV Versed and fentanyl starting at 9:40 a.m. The patient was prepared in a standard fashion. Right wrist area and forearm are thoroughly cleansed with Betadine solution. Sterile drapes were applied. Local anesthesia was used to obtain the local anesthesia. Subsequently, 21-gauge needle was used to puncture the right radial artery and 5-Slovenian slender sheath was introduced. A 5-Slovenian pigtail catheter was used to obtain the angiograms of the peripheral artery. Under fluoroscopy, pigtail was advanced into the abdominal aorta between L1 and L2 area and distal subtraction angiography was performed using 20 mL of dye at 10 mL per second. Subsequently, catheter was advanced into the L4 area and angiograms of both lower extremities were obtained using distal subtraction angiography in a normal way in a standard fashion. A 60 mL of dye was injected at 6 mL per second. Also, after obtaining the bilateral lower extremity angiogram using DSA angiogram of the iliac vessels were obtained in the right anterior oblique view for evaluation of the occlusion of the left common iliac artery. A 20 mL of dye at 10 mL per second was used. The patient tolerated the procedure well. At the end of the procedure over the guidewire, pigtail catheter was removed. Radial band was applied in the right wrist area and good hemostasis was achieved. The patient tolerated the procedure well. The patient's sedation started at 9:48 a.m. and ended at 10:10 a.m. The patient was monitored throughout the procedure with pulse oximetry, EKG monitoring and hemodynamic monitoring. The patient tolerated the procedure well. At the end of the procedure, the patient is communicating normally and breathing normally and no focal deficits noted and the patient was transferred to the room in stable condition. Following findings were noted. Abdominal aortogram showed normal sized abdominal aorta with no significant atherosclerotic plaques. Only minimal irregularities noted. Both the renal arteries are widely patent. Right common iliac artery and right external iliac artery and right internal iliac are patent and without any significant disease. Right common femoral artery, right superficial femoral artery and popliteal artery are widely patent with only mild disease. There is mainly single vessel peroneal runoff in the right leg with late filling of the TERI and posterior tibial arteries. Left common iliac system is totally occluded at the ostium, reconstitutes before the bifurcation into the external iliac and internal iliac. Left external iliac and internal iliac are patent. Similarly, left common femoral artery, left SFA and popliteal artery are patent, 2-vessel runoff was noted with a patent peroneal and a patent posterior tibial, which is occluded in the very distal part. Anterior tibial artery is not well visualized from the ostium. FINAL IMPRESSION: 1. Abdominal aorta is of normal size with only mild atherosclerotic plaque with patent renal arteries. 2. Occluded left common iliac artery at the ostium to the bifurcation. Right iliac system and right femoral system appeared to be unremarkable with a single vessel runoff distally mainly peroneal artery. 3. Left leg shows 2-vessel runoff with no significant disease in the common femoral, SFA and popliteal. 4. The patient's main disease in the left common iliac artery, which is completely occluded with reconstitution prior to origin of internal iliac artery. Consideration can be given for intervention of this occluded left common iliac artery. The patient tolerated the procedure well. No untoward complications noted. Findings were explained to the patient. [facility]# [id number] LEONARD/BETH SOSA
--- NOTE | 2019-12-07 11:25 | Short Stay Summary ---
Short Stay Documentation Date of service: 12/07/19 - History H&P: obtained from office - Allergies and Medications Current Medications: Allergies lisinopril Allergy (Verified 08/31/19 17:49) Unknown metoprolol Allergy (Verified 08/31/19 17:49) Unknown tramadol Allergy (Verified 08/31/19 17:49) Unknown Home Medications Medication Instructions Recorded Confirmed Last Taken Type Albuterol Sulfate [Proair 90 mcg IH Q4HR PRN #1 09/02/19 12/07/19 12/06/19 Rx Respiclick] 2 Aspirin [Adult Aspirin] 81 mg PO DAILY #100 09/02/19 12/07/19 12/06/19 Rx 81 mg AtorvaSTATin [Lipitor] 40 mg PO QHS 30 Days #30 tablet 09/02/19 12/07/19 12/06/19 Rx 40 mg Gabapentin 300 mg PO QHS #30 capsule 09/02/19 12/07/19 12/06/19 Rx 300 mg ISOSORBIDE MONOnitrate [Imdur ER] 30 mg PO QDAY #30 tablet 09/02/19 12/07/19 0 12/06/19 Rx 30 mg Levothyroxine [Synthroid] 125 mcg PO DAILY@0600 #30 tablet 09/02/19 12/07/19 12/06/19 Rx 125 mcg Olmesartan (Nf) [Benicar] 20 mg PO QDAY #30 09/02/19 12/07/19 12/06/19 Rx 5 mg Potassium Chloride [K-Dur] 10 meq PO QDAY #30 tablet 09/02/19 12/07/19 12/06/19 Rx 10 meq Sitagliptin Phosphate [Januvia] 1 tab PO DAILY #30 09/02/19 12/07/19 12/06/19 Rx 1 hydroCHLOROthiazide [HCTZ] 25 mg PO DAILY #30 tablet 09/02/19 12/07/19 12/06/19 Rx 25 mg metFORMIN [Glucophage] 1,000 mg PO BIDDIAB #60 tablet 09/02/19 12/07/19 12/06/19 Rx 1000 mg Omeprazole 40 mg PO DAILY 12/07/19 12/07/19 12/06/19 History 40 mg Active Medications Sodium Chloride (Nacl 0.9% 500 Ml) 500 mls @ 50 mls/hr IV DIRECT MAHOGANY Last Admin: 12/07/19 09:52 Dose: 100 mls Documented by: - Brief post op/procedure progress note Date of procedure: 12/07/19 Pre-op diagnosis: PVD Post-op diagnosis: same Procedure: peripheral angiogram - see dictated cath report Anesthesia: local Estimated blood loss: none Condition: stable - Disposition Condition at discharge: Good Disposition: DC-01 TO HOME OR SELFCARE - Discharge Diagnoses (1) PVD (peripheral vascular disease) Status: Chronic (2) CAD (coronary artery disease) Status: Chronic Qualifiers: (3) Stented coronary artery Status: Chronic (4) HTN (hypertension) Status: Chronic Qualifiers: (5) Hyperlipidemia Status: Chronic (6) Diabetes Status: Chronic Short Stay Discharge Plan Activity: advance as tolerated Diet: low fat, low cholesterol, low salt Wound: open to air, keep clean and dry, per your surgeon's advice Follow up with: GAGAN MCDOWELL MD [Primary Care Provider] - 7 Days CHARLETTE LAYTON MD [Staff Physician] - 7 Days
[2019-12-07 13:09] VITALS: BP 130/62
== END 2019-12-07 16:05 | disposition home or self-care (01) ==
LOC: CATHLABREC 06:45
PROVIDERS: ATTEND Internal Medicine
DX: I73.9 Peripheral vascular disease, unspecified (principal); E11.51 Type 2 diabetes mellitus with diabetic peripheral angiopathy without gangrene; I25.10 Atherosclerotic heart disease of native coronary artery without angina pectoris; I10 Essential (primary) hypertension; E78.5 Hyperlipidemia, unspecified; F17.210 Nicotine dependence, cigarettes, uncomplicated; J45.909 Unspecified asthma, uncomplicated; J44.9 Chronic obstructive pulmonary disease, unspecified; I25.2 Old myocardial infarction; E03.9 Hypothyroidism, unspecified; M19.90 Unspecified osteoarthritis, unspecified site; Z79.899 Other long term (current) drug therapy; Z79.82 Long term (current) use of aspirin; Z79.84 Long term (current) use of oral hypoglycemic drugs; Z95.5 Presence of coronary angioplasty implant and graft; Z90.49 Acquired absence of other specified parts of digestive tract; Z87.440 Personal history of urinary (tract) infections; Z88.8 Allergy status to other drugs, medicaments and biological substances
CPT/HCPCS: 36200; 36415; 75625; 75716; 80048; 85025; 85610; 85730; 99156; 99157; C1894; J1644; J2250; J3010; J7040; Q9967

== ENCOUNTER 2020-01-10 06:46 | Observation (INO) | payer MEDICARE ==
[2020-01-10 09:00] LABS: Basophils # (Auto) 0.1 K/mm3 (0.0-0.1); Basophils % (Auto) 0.8 % (0.0-1.8); Eosinophils # (Auto) 0.3 K/mm3 (0.0-0.4); Eosinophils % (Auto) 3.6 % (0.0-4.3); Hematocrit 37.7 % (30.3-42.9); Hemoglobin 12.9 gm/dl (10.1-14.3); Lymphocytes # (Auto) 2.4 K/mm3 (1.2-5.4); Lymphocytes % (Auto) 30.1 % (13.4-35.0); Mean Corpuscular HGB Conc 34 % (30-34); Mean Corpuscular Volume 94 fl (79-97); Monocytes # (Auto) 0.9 K/mm3 (0.0-0.8); Platelet Count 247 K/mm3 (140-440); Red Cell Distribution Width 13.8 % (13.2-15.2)
[2020-01-10] MEDS ORDERED: SODIUM CHLORIDE 0.9% 500 ML 500 ML IV SCH (09:00)
[2020-01-10 09:10] LABS: INR 0.94 (0.87-1.13)
[2020-01-10 09:11] LABS: Partial Thromboplastin Time 27.5 Sec. (24.2-36.6)
[2020-01-10 09:19] LABS: Blood Urea Nitrogen 20 mg/dL (7-17); Calcium 8.8 mg/dL (8.4-10.2); Hemolysis Index 21
[2020-01-10 09:29] LABS: BUN/Creatinine Ratio 33
[2020-01-10] MEDS ORDERED: HEPARIN/NS 5000 UNIT/500ML 1,500 ML IR ONE (09:47)
[2020-01-10] MEDS ORDERED: ceFAZolin/Water 2 GM/20 ML 2 GM/20 ML SYRINGE IV ONE (09:48)
[2020-01-10] MEDS: MIDAZOLAM 2 MG/2 ML INJ ONE ×4 (10:00→11:00)
[2020-01-10] MEDS: fentaNYL 100 MCG/2 ML INJ ONE ×4 (10:00→11:00)
[2020-01-10] MEDS: LIDOCAINE 1%/EPINEPHRINE 1:100,000 VIAL (20 ML) INFILTRATI ONE ×2 (10:03→10:11)
[2020-01-10] MEDS: HEPARIN 10,000 UNITS/10 ML VIAL ONE ×2 (10:15→10:23)
[2020-01-10] MEDS ORDERED: ONDANSETRON 4 MG/2 ML INJ ONE (11:44)
[2020-01-10] MEDS ORDERED: CLOPIDOGREL 300 MG TAB ONE (11:46)
--- NOTE | 2020-01-10 11:48 | Operative Report ---
Operative Report Operative Report: EXAM: 1. Ultrasound-guided access of the right common femoral artery. 2. Ultrasound-guided access of the left common femoral artery. 3. Selection of the abdominal aorta with angiography. 4. Stenting of the right common iliac artery with a 8 mm x 39 mm VBX 5. Stenting of the left common iliac artery with an 8 mm x 59 mm VBX 6. Angioplasty of the left external iliac artery with a 7 mm x 60 mm angioplasty balloon 7. Stenting of the left external iliac artery with a 8 mm x 7.5 cm Viabahn 8. Angioplasty of the left common femoral artery with a 7 mm x 80 mm iNPACT DCB 9. Post dilatation of the common iliac artery stents with a 9 mm x 40 mm angioplasty balloon 10. Closure of the right common femoral artery with 6 Fr proglide 11. Closure of the left common femoral artery with manual hemostasis. DATE: 01/10/2020 MELTER HELPER: JESSICA TONY MD INDICATION: Intermittent claudication of the lower extremities with injury of the left third toe concerning for critical limb ischemia. MEDICATIONS: Please see nursing report for full details. DEVICES: 8 mm x 7.5 mm Viabahn 8 mm x 39 mm VBX 8 mm x 59 mm VBX CONTRAST: Please see manager labor delivery reports for full details PROCEDURE: The risks, benefits, and alternatives were discussed with the patient; written informed consent was obtained. The groins and left wrist were prepped and draped in a sterile fashion. Under direct ultrasound guidance, the right common femoral was evaluated and was patent. Under direct ultrasound guidance, the right common femoral artery was accessed with a 21-gauge micropuncture needle. 0.018 inch wire was passed into the aorta. Needle was exchanged for transitional dilator. Wire was exchanged for a 0.035 inch wire. Transitional dilator was exchanged for a 5 Irish sheath. Digital subtraction angiography was performed demonstrating an appropriate puncture, above the bifurcation below the inferior epigastric artery. The right external iliac artery was patent. The right internal iliac artery was patent. The right common iliac artery had some proximal irregularity of 20%. The infrarenal abdominal aorta was patent. Under direct ultrasound guidance, the left common femoral was evaluated and was patent. Under direct ultrasound guidance, the left common femoral artery was accessed with a 21-gauge micropuncture needle. 0.018 inch wire was passed into the aorta. Needle was exchanged for transitional dilator. Wire was exchanged for a 0.035 inch wire. Transitional dilator was exchanged for a 5 Irish sheath. The right common femoral artery has diffuse 10 to 20% narrowing. Digital subtraction angiography was performed demonstrating an appropriate puncture, above the bifurcation below the inferior epigastric artery. The left external iliac artery had severe multifocal narrowing of 50 to 80%. The left internal iliac artery was proximally patent but distally had disease up to 60%. The left common iliac artery was occluded. The left common femoral artery has diffuse 40 to 50% narrowing. The patient was partially heparinized. Pigtail catheter was inserted through the right groin sheath and positioned in the infrarenal abdominal aorta. Power injection was performed demonstrating the above-mentioned findings in further detail for intervention purposes. Catheter is inserted through the left femoral sheath into the left common iliac artery. With use of the 0.018 inch wire, the common iliac artery occlusion was crossed. Angled catheter was inserted into the aorta and digital subtraction angiography was performed confirming position in the aorta. The patient was fully heparinized. 4 mm x 40 mm angioplasty balloon was used to predilate the left common iliac artery occlusion. Digital subtraction angiography was performed demonstrating improvement in flow through the occluded segment. Sheaths were exchanged for 7 Irish 23 cm bright tip sheaths and were inserted into the aorta. 8 mm x 39 mm VBX stent was inserted through the right sheath and an 8 mm x 59 mm VBX stent was inserted through the left sheath. These were then deployed in a kissing fashion and the common iliac arteries slightly into the aorta. Digital subtraction angiography was performed demonstrating patency through the common iliac arteries, but a dissection in the left external iliac artery due to a small amount of the VBX balloon exerting pressure on the left external iliac artery. The left external iliac artery was then treated with a 7 mm x 60 mm angioplasty balloon. Digital subtraction angiography demonstrated patency of the upper portion of the left external iliac artery but residual 60% narrowing of the lower external iliac artery. There is also some irregularity of the upper left external iliac artery compatible with the treated dissection. I decided to treat this area with a 8 mm x 7.5 cm Viabahn stent. This was successfully deployed in the left external iliac artery. This was then postdilated with a 7 mm x 60 mm angioplasty balloon. 7 mm x 80 mm iNPACT balloon was then used to perform angioplasty of the left upper common femoral artery and then used to perform angioplasty of the area between the stent grafts in the left distal most common iliac artery/proximal most external iliac artery. I then decided to flare the proximal portions of the common iliac artery stents with 9 mm x 40 mm angioplasty balloons. Digital subtraction angiography was performed demonstrating excellent flow through the bilateral common iliac arteries, external iliac arteries, and common femoral arteries without any residual narrowing of the treated segments. At this point, the intervention was complete. The right femoral sheath was then exchanged for a 6 Irish pro glide which was used to Po the arteriotomy achieving immediate hemostasis. I considered closing the left femoral sheath with the pro-glide, but I did not want the pro-glide device to interfere with the newly placed stent and therefore I decided to obtain hemostasis with manual compression. The left femoral sheath and wire were removed and pressure was held until hemostasis was achieved. Pressure bandage applied to the groins. Patient tolerated the procedure well. She has palpable dorsalis pedis pulses at the conclusion of the intervention. FINDINGS: Please see procedure note above. IMPRESSION: 1. Successful stenting of the right common iliac artery. 2. Successful stenting of the left common iliac artery. 3. Successful stenting of the left external iliac artery. 3. Successful angioplasty of the left common femoral artery.
[2020-01-10] MEDS ORDERED: HYDROcodone/ACETAMINOPHEN 5-325 MG TAB PO PRN (12:13)
[2020-01-10] MEDS ORDERED: HYDROmorphone 1 MG/1 ML INJ IV PRN (12:13)
[2020-01-10] MEDS ORDERED: ONDANSETRON 4 MG/2 ML INJ IV PRN ×2 (12:13→19:36)
[2020-01-10] MEDS ORDERED: ACETAMINOPHEN 325 MG TAB PO PRN ×2 (12:13→19:36)
[2020-01-10] MEDS ORDERED: NON-FORMULARY EACH (Albuterol Sulfate [Proair Respiclick] 90 MCG) IH PRN (12:17)
--- NOTE | 2020-01-10 12:22 | Short Stay Summary ---
Short Stay Documentation Date of service: 01/10/20 Narrative H&P: 64-year-old female with history of PVD, diabetes, prior myocardial infarction, intermittent claudication, and left lower extremity third digit ulceration who presents for revascularization. Had successful bilateral lower extremity revascularizations today. Patient will be admitted due to extensive nature of iliac revascularization, bilateral groin discomfort, comorbidites, and stairs at home. - History Principal diagnosis: Intermittent claudication H&P: obtained from office - Allergies and Medications Current Medications: Allergies lisinopril Allergy (Verified 08/31/19 17:49) Unknown metoprolol Allergy (Verified 08/31/19 17:49) Unknown tramadol Allergy (Verified 08/31/19 17:49) Unknown Home Medications Medication Instructions Recorded Confirmed Last Taken Type Albuterol Sulfate [Proair 90 mcg IH Q4HR PRN #1 09/02/19 01/10/20 01/09/20 Rx Respiclick] 90 mcg Aspirin [Adult Aspirin] 81 mg PO DAILY #100 09/02/19 01/10/20 01/09/20 Rx 81 mg AtorvaSTATin [Lipitor] 40 mg PO QHS 30 Days #30 tablet 09/02/19 01/10/20 01/09/20 Rx 40 mg Gabapentin 300 mg PO QHS #30 capsule 09/02/19 01/10/20 01/09/20 Rx 300 mg ISOSORBIDE MONOnitrate [Imdur ER] 30 mg PO QDAY #30 tablet 09/02/19 01/10/20 01/09/20 Rx 30 mg Levothyroxine [Synthroid] 125 mcg PO DAILY@0600 #30 tablet 09/02/19 01/10/20 01/09/20 Rx 125 mcg Olmesartan (Nf) [Benicar] 20 mg PO QDAY #30 09/02/19 01/10/20 01/09/20 Rx 20 mg Potassium Chloride [K-Dur] 10 meq PO QDAY #30 tablet 09/02/19 01/10/20 01/09/20 Rx 10 meq Sitagliptin Phosphate [Januvia] 1 tab PO DAILY #30 09/02/19 01/10/20 01/09/20 Rx 50 mg hydroCHLOROthiazide [HCTZ] 25 mg PO DAILY #30 tablet 09/02/19 01/10/20 01/09/20 Rx 25 mg metFORMIN [Glucophage] 1,000 mg PO BIDDIAB #60 tablet 09/02/19 01/10/20 01/09/20 Rx 1000 mg Omeprazole 40 mg PO DAILY 12/07/19 01/10/20 01/09/20 History 40 mg Clopidogrel [Plavix] 75 mg PO QDAY #30 tablet 01/10/20 Unknown Rx HYDROcodone/APAP 5-325 [[place] 1 each PO Q4HR PRN #30 tablet 01/10/20 Unknown Rx 5/325] Pantoprazole [Protonix] 40 mg PO QDAY #30 tablet 01/10/20 Unknown Rx Active Medications Acetaminophen (Tylenol) 650 mg PO Q4H PRN PRN Reason: Pain MILD(1-3)/Fever >100.5/[place] Hydrocodone Bitart/Acetaminophen ([place] 5/325) 1 each PO Q6H PRN PRN Reason: Pain, Moderate (4-6) Aspirin (Halfprin Ec) 81 mg PO DAILY [facility] Atorvastatin Calcium (Lipitor) 40 mg PO QHS [facility] Clopidogrel Bisulfate (Plavix) 75 mg PO QDAY [facility] Gabapentin (Gabapentin) 300 mg PO QHS [facility] Hydrochlorothiazide (Hctz) 25 mg PO DAILY [facility] Hydromorphone HCl (Dilaudid) 0.5 mg IV Q3H PRN PRN Reason: Pain , Severe (7-10) Sodium Chloride (Nacl 0.9% 500 Ml) 500 mls @ 50 mls/hr IV DIRECT [facility] Last Admin: 01/10/20 09:20 Dose: 50 mls/hr Documented by: Isosorbide Mononitrate (Imdur) 30 mg PO QDAY [facility] Levothyroxine Sodium (Synthroid) 125 mcg PO DAILY@0600 [facility] Miscellaneous Medication (Olmesartan (Nf)) 20 mg PO QDAY [facility] Miscellaneous Medication (Sitagliptin Phosphate [Januvia]) 1 tab PO DAILY [facility] Miscellaneous Medication (Albuterol Sulfate [Proair Respiclick]) 90 mcg IH Q4HR PRN PRN Reason: Wheezing Ondansetron HCl (Zofran) 4 mg IV Q4H PRN PRN Reason: Nausea Pantoprazole Sodium (Protonix) 40 mg PO QDAC [facility] Potassium Chloride (K-Dur) 10 meq PO QDAY [facility] Sodium Chloride (Sodium Chloride Flush Syringe 10 Ml) 10 ml IV BID [facility] Sodium Chloride (Sodium Chloride Flush Syringe 10 Ml) 10 ml IV PRN PRN PRN Reason: LINE FLUSH - Physical exam General appearance: no acute distress Lungs: Normal air movement Gastrointestinal: normal Extremities: normal temperature, normal color, abnormal (Prior to procedure, nonpalpable left pedal pulses, now palpable bilateral dorsalis pedis pulses.) - Brief post op/procedure progress note Date of procedure: 01/10/20 Pre-op diagnosis: Intermittent claudication of the lower extremities, left lower extremity cr Post-op diagnosis: same Procedure: 1. Ultrasound-guided access of the right common femoral artery. 2. Ultrasound-guided access of the left common femoral artery. 3. Selection of the abdominal aorta with angiography. 4. Stenting of the right common iliac artery with a 8 mm x 39 mm VBX 5. Stenting of the left common iliac artery with an 8 mm x 59 mm VBX 6. Angioplasty of the left external iliac artery with a 7 mm x 60 mm angioplasty balloon 7. Stenting of the left external iliac artery with a 8 mm x 7.5 cm Vi[place]ahn 8. Angioplasty of the left common femoral artery with a 7 mm x 80 mm iNPACT DCB 9. Post dilatation of the common iliac artery stents with a 9 mm x 40 mm angioplasty balloon 10. Closure of the right common femoral artery with 6 Fr proglide 11. Closure of the left common femoral artery with manual hemostasis. Anesthesia: local (With conscious sedation) Surgeon: JESSICA TONY Estimated blood loss: minimal Condition: stable - Hospital course Hospital course: Patient tolerated the procedure well. No immediate post procedural issues. Planned to keep overnight due to bilateral groin punctures, comorbidites of the patient, and home situation. Had some back pain (has back pain normally at home) and groin pain (expected at access sites) and was kept flat for 8 hrs. Doing well. The next day she was evaluated and doing overall well. Both groins are tender without bleeding, hematoma, or pseudoaneurysm. Has some mild back pain (normal for patient). Doing well without issue. Vital signs stable, no hypotension or tachycardia. Palpable dorsalis pedis pulses bilaterally. Discussed medication changes and pain medication. Patient understands. Plan for discharge today. - Disposition Condition at discharge: Stable Disposition: DC- TO HOME OR SELFCARE - Discharge Diagnoses (1) Critical ischemia of lower extremity Status: Acute (2) Intermittent claudication due to atherosclerosis of artery of extremity Status: Acute (3) NSTEMI (non-ST elevated myocardial infarction) Status: Chronic (4) PVD (peripheral vascular disease) Status: Chronic Short Stay Discharge Plan Activity: advance as tolerated Weight Bearing Status: Weight Bear as Tolerated (for the next week, avoid lifting more than 10 lbs, and try to avoid stairs or take them very slow) Diet: regular Wound: keep clean and dry (keep the groins dry and clean ; avoid getting them wet for the next 3-5 days to allow them to heal ) Follow up with: GAGAN MCDOWELL MD [Primary Care Provider] - 7 Days Prescriptions: HYDROcodone/APAP 5-325 [[place] 5/325] 1 each PO Q4HR PRN #30 tablet PRN Reason: Pain Promethazine [Phenergan] 25 mg PO Q6HR PRN #20 tab PRN Reason: Nausea Clopidogrel [Plavix] 75 mg PO QDAY #30 tablet Pantoprazole [Protonix] 40 mg PO QDAY #30 tablet
[2020-01-10] MEDS ORDERED: OLMESARTAN 20 MG PO SCH (12:30)
[2020-01-10] MEDS ORDERED: SITAGLIPTIN PHOSPHATE PO SCH (12:30)
[2020-01-10] MEDS ORDERED: ALBUTEROL 2.5 MG/3 ML NEBU IH PRN (13:36)
[2020-01-10] MEDS ORDERED: DEXTROSE 50% IN WATER (25GM) 50 ML SYRINGE IV PRN (14:29)
[2020-01-10] MEDS: ASPIRIN EC 81 MG TAB PO SCH (15:14)
[2020-01-10] MEDS: POTASSIUM CHLORIDE ER 10 MEQ TAB PO SCH (15:14)
[2020-01-10] MEDS: PANTOPRAZOLE 40 MG TAB PO SCH (15:14)
[2020-01-10] MEDS: LINAGLIPTIN 5 MG TAB PO SCH (15:14)
[2020-01-10] MEDS: LOSARTAN 50 MG TAB PO SCH (15:15)
[2020-01-10] MEDS: hydroCHLOROthiazide 25 MG TAB PO SCH (15:15)
[2020-01-10] MEDS: INSULIN LISPRO 100 UNIT/ML VIAL 3 mL SUB-Q SCH ×2 (17:12→22:18)
[2020-01-10] MEDS ORDERED: ACETAMINOPHEN 325 MG TAB PO ONE (17:25)
--- NOTE | 2020-01-10 19:27 | History and Physical Report ---
History of Present Illness Date of examination: 01/10/20 Date of admission: 01/10/20 12:13 Medications and Allergies Allergies Allergy/AdvReac Type Severity Reaction Status Date / Time lisinopril Allergy Unknown Verified 08/31/19 17:49 metoprolol Allergy Unknown Verified 08/31/19 17:49 tramadol Allergy Unknown Verified 08/31/19 17:49 Home Medications Medication Instructions Recorded Confirmed Last Taken Type Albuterol Sulfate [Proair 90 mcg IH Q4HR PRN #1 09/02/19 01/10/20 01/09/20 Rx Respiclick] 90 mcg Aspirin [Adult Aspirin] 81 mg PO DAILY #100 09/02/19 01/10/20 01/09/20 Rx 81 mg AtorvaSTATin [Lipitor] 40 mg PO QHS 30 Days #30 tablet 09/02/19 01/10/20 01/09/20 Rx 40 mg Gabapentin 300 mg PO QHS #30 capsule 09/02/19 01/10/20 01/09/20 Rx 300 mg ISOSORBIDE MONOnitrate [Imdur ER] 30 mg PO QDAY #30 tablet 09/02/19 01/10/20 01/09/20 Rx 30 mg Levothyroxine [Synthroid] 125 mcg PO DAILY@0600 #30 tablet 09/02/19 01/10/20 01/09/20 Rx 125 mcg Olmesartan (Nf) [Benicar] 20 mg PO QDAY #30 09/02/19 01/10/20 01/09/20 Rx 20 mg Potassium Chloride [K-Dur] 10 meq PO QDAY #30 tablet 09/02/19 01/10/20 01/09/20 Rx 10 meq Sitagliptin Phosphate [Januvia] 1 tab PO DAILY #30 09/02/19 01/10/20 01/09/20 Rx 50 mg hydroCHLOROthiazide [HCTZ] 25 mg PO DAILY #30 tablet 09/02/19 01/10/20 01/09/20 Rx 25 mg metFORMIN [Glucophage] 1,000 mg PO BIDDIAB #60 tablet 09/02/19 01/10/20 01/09/20 Rx 1000 mg Omeprazole 40 mg PO DAILY 12/07/19 01/10/20 01/09/20 History 40 mg Clopidogrel [Plavix] 75 mg PO QDAY #30 tablet 01/10/20 Unknown Rx HYDROcodone/APAP 5-325 [[place] 1 each PO Q4HR PRN #30 tablet 01/10/20 Unknown Rx 5/325] Pantoprazole [Protonix] 40 mg PO QDAY #30 tablet 01/10/20 Unknown Rx Active Meds: Active Medications Acetaminophen (Tylenol) 650 mg PO Q4H PRN PRN Reason: Pain MILD(1-3)/Fever >100.5/[place] Last Admin: 01/10/20 17:37 Dose: 650 mg Documented by: Hydrocodone Bitart/Acetaminophen ([place] 5/325) 1 each PO Q6H PRN PRN Reason: Pain, Moderate (4-6) Albuterol (Proventil) 2.5 mg IH Q4HRT PRN PRN Reason: Wheezing Aspirin (Halfprin Ec) 81 mg PO DAILY [facility] Last Admin: 01/10/20 15:14 Dose: 81 mg Documented by: Atorvastatin Calcium (Lipitor) 40 mg PO QHS [facility] Clopidogrel Bisulfate (Plavix) 75 mg PO QDAY [facility] Dextrose (D50w (25gm) Syringe) 50 ml IV Q30MIN PRN; Protocol PRN Reason: Hypoglycemia Gabapentin (Gabapentin) 300 mg PO QHS [facility] Hydrochlorothiazide (Hctz) 25 mg PO DAILY [facility] Last Admin: 01/10/20 15:15 Dose: 25 mg Documented by: Hydromorphone HCl (Dilaudid) 0.5 mg IV Q3H PRN PRN Reason: Pain , Severe (7-10) Sodium Chloride (Nacl 0.9% 500 Ml) 500 mls @ 50 mls/hr IV DIRECT [facility] Last Admin: 01/10/20 09:20 Dose: 50 mls/hr Documented by: Insulin Human Lispro (Humalog) 0 unit SUB-Q ACHS [facility]; Protocol Last Admin: 01/10/20 17:12 Dose: Not Given Documented by: Isosorbide Mononitrate (Imdur) 30 mg PO QDAY [facility] Last Admin: 01/10/20 15:14 Dose: Not Given Documented by: Levothyroxine Sodium (Synthroid) 125 mcg PO DAILY@0600 [facility] Linagliptin (Tradjenta) 5 mg PO QDAY [facility] Last Admin: 01/10/20 15:14 Dose: Not Given Documented by: Losartan Potassium (Cozaar) 50 mg PO QDAY [facility] Last Admin: 01/10/20 15:15 Dose: Not Given Documented by: Ondansetron HCl (Zofran) 4 mg IV Q4H PRN PRN Reason: Nausea Last Admin: 01/10/20 17:14 Dose: 4 mg Documented by: Pantoprazole Sodium (Protonix) 40 mg PO QDAC [facility] Last Admin: 01/10/20 15:14 Dose: 40 mg Documented by: Potassium Chloride (K-Dur) 10 meq PO QDAY [facility] Last Admin: 01/10/20 15:14 Dose: 10 meq Documented by: Sodium Chloride (Sodium Chloride Flush Syringe 10 Ml) 10 ml IV BID [facility] Last Admin: 01/10/20 16:42 Dose: 10 ml Documented by: Sodium Chloride (Sodium Chloride Flush Syringe 10 Ml) 10 ml IV PRN PRN PRN Reason: LINE FLUSH Exam - Constitutional Vitals: Temp Pulse Resp BP Pulse Ox 98.0 F 82 20 127/68 98 01/10/20 15:09 01/10/20 15:09 01/10/20 15:09 01/10/20 15:09 01/10/20 15:09 Results - Labs CBC & Chem 7: 01/10/20 08:40 01/10/20 08:40 Labs: Laboratory Last Values WBC 7.9 K/mm3 (4.5-11.0) 01/10/20 08:40 RBC 4.00 M/mm3 (3.65-5.03) 01/10/20 08:40 Hgb 12.9 gm/dl (10.1-14.3) 01/10/20 08:40 Hct 37.7 % (30.3-42.9) 01/10/20 08:40 MCV 94 fl (79-97) 01/10/20 08:40 MCH 32 pg (28-32) 01/10/20 08:40 MCHC 34 % (30-34) 01/10/20 08:40 RDW 13.8 % (13.2-15.2) 01/10/20 08:40 Plt Count 247 K/mm3 (140-440) 01/10/20 08:40 Lymph % (Auto) 30.1 % (13.4-35.0) 01/10/20 08:40 [place] % (Auto) 11.0 % (0.0-7.3) H 01/10/20 08:40 Eos % (Auto) 3.6 % (0.0-4.3) 01/10/20 08:40 Baso % (Auto) 0.8 % (0.0-1.8) 01/10/20 08:40 Lymph # (Auto) 2.4 K/mm3 (1.2-5.4) 01/10/20 08:40 [place] # (Auto) 0.9 K/mm3 (0.0-0.8) H 01/10/20 08:40 Eos # (Auto) 0.3 K/mm3 (0.0-0.4) 01/10/20 08:40 Baso # (Auto) 0.1 K/mm3 (0.0-0.1) 01/10/20 08:40 Seg Neutrophils % 54.5 % (40.0-70.0) 01/10/20 08:40 Seg Neutrophils # 4.3 K/mm3 (1.8-7.7) 01/10/20 08:40 PT 12.7 Sec. (12.2-14.9) 01/10/20 08:40 INR 0.94 (0.87-1.13) 01/10/20 08:40 APTT 27.5 Sec. (24.2-36.6) 01/10/20 08:40 Sodium 142 mmol/L (137-145) 01/10/20 08:40 Potassium 3.6 mmol/L (3.6-5.0) 01/10/20 08:40 Chloride 105.6 mmol/L (98-107) 01/10/20 08:40 Carbon Dioxide 26 mmol/L (22-30) 01/10/20 08:40 Anion Gap 14 mmol/L 01/10/20 08:40 BUN 20 mg/dL (7-17) H 01/10/20 08:40 Creatinine 0.6 mg/dL (0.6-1.2) 01/10/20 08:40 Estimated GFR > 60 ml/min 01/10/20 08:40 BUN/Creatinine Ratio 33 % 01/10/20 08:40 Glucose 150 mg/dL (65-100) H 01/10/20 08:40 POC Glucose 148 (70-105) H 01/10/20 17:26 Calcium 8.8 mg/dL (8.4-10.2) 01/10/20 08:40 Brandt/IV: Voiding Method Toilet IV Catheter Type [Right Hand] INT / [place] Assessment and Plan Advance Directives: Yes - Patient Problems (1) PAD (peripheral artery disease) Current Visit: Yes Status: Acute (2) T2DM (type 2 diabetes mellitus) Current Visit: Yes Status: Acute (3) GERD (gastroesophageal reflux disease) Current Visit: Yes Status: Acute (4) Asthma Current Visit: No Status: Inactive (5) HLD (hyperlipidemia) Current Visit: Yes Status: Acute (6) CAD (coronary artery disease) of artery bypass graft Current Visit: Yes Status: Acute (7) HTN (hypertension) Current Visit: Yes Status: Chronic Qualifiers: Hypertension type: essential hypertension Qualified Code(s): I10 - Essential (primary) hypertension (8) Hypothyroidism (acquired) Current Visit: Yes Status: Chronic (9) CAD (coronary artery disease) Current Visit: Yes Status: Chronic Qualifiers: Coronary Disease-Associated Artery/Lesion type: [place] artery [place] vs. transplanted heart: [place] heart (10) DVT prophylaxis Current Visit: No Status: Acute
[2020-01-10] MEDS ORDERED: oxyCODONE /ACETAMINOPHEN 5-325MG TAB PO PRN (19:36)
[2020-01-10] MEDS ORDERED: METOCLOPRAMIDE 10 MG/2 ML INJ IV PRN (19:36)
[2020-01-10] MEDS ORDERED: GABAPENTIN 300 MG CAP PO SCH (22:00)
[2020-01-10] MEDS ORDERED: FAMOTIDINE 20 MG/2 ML INJ IV SCH (22:00)
[2020-01-11] MEDS ORDERED: LEVOTHYROXINE 125 MCG TAB PO SCH (06:00)
[2020-01-11 08:36] LABS: Basophils % (Auto) 0.6 % (0.0-1.8); Eosinophils # (Auto) 0.3 K/mm3 (0.0-0.4); Eosinophils % (Auto) 3.4 % (0.0-4.3); Hematocrit 34.6 % (30.3-42.9); Hemoglobin 11.9 gm/dl (10.1-14.3); Lymphocytes % (Auto) 22.8 % (13.4-35.0); Mean Corpuscular HGB Conc 34 % (30-34); Mean Corpuscular Volume 93 fl (79-97); Monocytes % (Auto) 11.7 % (0.0-7.3); Platelet Count 233 K/mm3 (140-440); Red Blood Count 3.74 M/mm3 (3.65-5.03); Red Cell Distribution Width 13.7 % (13.2-15.2)
[2020-01-11] MEDS: INSULIN LISPRO 100 UNIT/ML VIAL 3 mL SUB-Q SCH ×2 (08:39→12:14)
[2020-01-11] MEDS: LINAGLIPTIN 5 MG TAB PO SCH (09:23)
[2020-01-11] MEDS: PANTOPRAZOLE 40 MG TAB PO SCH (09:23)
[2020-01-11] MEDS: LOSARTAN 50 MG TAB PO SCH (09:23)
[2020-01-11] MEDS: ASPIRIN EC 81 MG TAB PO SCH (09:23)
[2020-01-11] MEDS: hydroCHLOROthiazide 25 MG TAB PO SCH (09:24)
[2020-01-11] MEDS: POTASSIUM CHLORIDE ER 10 MEQ TAB PO SCH (09:24)
[2020-01-11] MEDS ORDERED: CLOPIDOGREL 75 MG TAB PO SCH (10:00)
[2020-01-11 10:08] LABS: Blood Urea Nitrogen 11 mg/dL (7-17); Calcium 8.5 mg/dL (8.4-10.2); Hemolysis Index 1
[2020-01-11 10:16] LABS: BUN/Creatinine Ratio 18
[2020-01-11 13:16] VITALS: BP 139/73
== END 2020-01-11 17:14 | disposition home or self-care (01) ==
LOC: CATH 06:46 → INTOOBSV 12:13 → 4A 12:13
PROVIDERS: ADMIT Radiology Diagnostic Radiology; ATTEND Radiology Diagnostic Radiology
DX: I70.213 Atherosclerosis of native arteries of extremities with intermittent claudication, bilateral legs (principal); E11.51 Type 2 diabetes mellitus with diabetic peripheral angiopathy without gangrene; S99.922A Unspecified injury of left foot, initial encounter; K21.9 Gastro-esophageal reflux disease without esophagitis; J45.909 Unspecified asthma, uncomplicated; E78.5 Hyperlipidemia, unspecified; I21.4 Non-ST elevation (NSTEMI) myocardial infarction; I25.2 Old myocardial infarction; I25.810 Atherosclerosis of coronary artery bypass graft(s) without angina pectoris; I10 Essential (primary) hypertension; E03.9 Hypothyroidism, unspecified; Z79.82 Long term (current) use of aspirin; Z79.84 Long term (current) use of oral hypoglycemic drugs; Z79.02 Long term (current) use of antithrombotics/antiplatelets; Z79.899 Other long term (current) drug therapy; Z88.6 Allergy status to analgesic agent; Z88.8 Allergy status to other drugs, medicaments and biological substances; X58.XXXA Exposure to other specified factors, initial encounter; Y93.89 Activity, other specified; Y92.89 Other specified places as the place of occurrence of the external cause
CPT/HCPCS: 36415; 37221; 37223; 75625; 76937; 80048; 82962; 83036; 85025; 85610; 85730; 96374; 96375; A9270; C1725; C1760; C1769; C1874; C1894; C2623; G0378; J0690; J1644; J2250; J2405; J3010; J7040; 96361; Q9967

== ENCOUNTER 2020-09-05 11:06 | Outpatient (CLI) | payer MEDICARE ==
[2020-09-05 11:46] LABS: Basophils % (Auto) 0.8 % (0.0-1.8); Eosinophils # (Auto) 0.2 K/mm3 (0.0-0.4); Eosinophils % (Auto) 2.8 % (0.0-4.3); Hematocrit 38.3 % (30.3-42.9); Hemoglobin 12.9 gm/dl (10.1-14.3); Lymphocytes # (Auto) 1.6 K/mm3 (1.2-5.4); Lymphocytes % (Auto) 24.9 % (13.4-35.0); Mean Corpuscular HGB Conc 34 % (30-34); Mean Corpuscular Volume 96 fl (79-97); Monocytes # (Auto) 0.6 K/mm3 (0.0-0.8); Monocytes % (Auto) 9.8 % (0.0-7.3); Platelet Count 248 K/mm3 (140-440); Red Blood Count 3.99 M/mm3 (3.65-5.03)
[2020-09-05 12:04] LABS: Alanine Aminotransferase 10 units/L (7-56); Albumin 3.5 g/dL (3.9-5); Blood Urea Nitrogen 18 mg/dL (7-17); Calcium 8.3 mg/dL (8.4-10.2); Chol/HDL Ratio 2.87 %; HDL Cholesterol 57 mg/dL (40-59); Hemolysis Index 9; LDL Cholesterol,Direct 101 mg/dL (50-130)
[2020-09-05 12:07] LABS: ABG Base Excess -0.8 mmol/L (-2.0-3.0); ABG HCO3 22.9 mmol/L (20.0-26.0); ABG Methemoglobin 0.4 % (0.0-1.5); ABG Oxygen Saturation 97.3 % (95.0-99.0); ABG PCO2 34.8 mm Hg; ABG PH 7.436 pH Units (7.350-7.450); ABG PO2 91.9 mm Hg (80.0-90.0)
[2020-09-05 12:11] LABS: BUN/Creatinine Ratio 26
--- NOTE | 2020-09-05 13:49 | Cat Scan Report ---
CT angio chest INDICATION: MAIN. TECHNIQUE: All CT scans at this location are performed using CT dose reduction for ALARA by means of automated e xposure control. 3 plane MIP and 3-D reconstructions were produced. COMPARISON: None available. FINDINGS: Mediastinum, koko and axillae are negative. Upper abdomen is unremarkable. No significant pulmonary or pleural disease. No evidence of pulmonary embolus. IMPRESSION: 1. Negative for pulmonary embolus or other acute abnormality. Signer Name: Andrew Wilkins MD Signed: 09/05/2020 1:45 PM Workstation Name: [id number]
== END 2020-09-05 11:07 | disposition home or self-care (01) ==
LOC: CT 11:06
PROVIDERS: ATTEND Internal Medicine
DX: R06.02 Shortness of breath (principal); I26.99 Other pulmonary embolism without acute cor pulmonale; I10 Essential (primary) hypertension
CPT/HCPCS: 36415; 36600; 71275; 80053; 80061; 82803; 84436; 84443; 85025; 85379; Q9967

== ENCOUNTER 2020-09-17 08:30 | Observation (INO) | payer MEDICARE ==
[2020-09-17] MEDS ORDERED: ASPIRIN 325 MG TAB PO ONE ×2 (08:57→13:00)
[2020-09-17 10:39] LABS: Alanine Aminotransferase 12 units/L (7-56); Albumin 4.2 g/dL (3.9-5); BUN/Creatinine Ratio 36; Blood Urea Nitrogen 25 mg/dL (7-17); Calcium 8.8 mg/dL (8.4-10.2); Hemolysis Index 3
[2020-09-17 10:46] LABS: Basophils # (Auto) 0.1 K/mm3 (0.0-0.1); Basophils % (Auto) 1.2 % (0.0-1.8); Eosinophils # (Auto) 0.2 K/mm3 (0.0-0.4); Eosinophils % (Auto) 3.4 % (0.0-4.3); Hematocrit 38.1 % (30.3-42.9); Hemoglobin 13.1 gm/dl (10.1-14.3); Lymphocytes % (Auto) 33.9 % (13.4-35.0); Mean Corpuscular HGB Conc 34 % (30-34); Mean Corpuscular Volume 93 fl (79-97); Monocytes # (Auto) 0.6 K/mm3 (0.0-0.8); Monocytes % (Auto) 9.4 % (0.0-7.3); Platelet Count 277 K/mm3 (140-440); Red Blood Count 4.11 M/mm3 (3.65-5.03); Red Cell Distribution Width 13.6 % (13.2-15.2)
[2020-09-17 12:32] LABS: INR 0.86 (0.87-1.13)
[2020-09-17 12:33] LABS: Partial Thromboplastin Time 32.9 Sec. (24.2-36.6)
[2020-09-17 12:40] LABS: Bilirubin,Urine NEG (Negative); Blood,Urine NEG (Negative); Color,Urine Yellow (Yellow); Mucus,Urine FEW /HPF; Protein,Urine <15 mg/dL mg/dL (Negative); Urobilinogen,Urine < 2.0 mg/dL (<2.0)
[2020-09-17] MEDS: NITROGLYCERIN 0.4 MG TAB SUBL SL PRN (21:04)
[2020-09-17] MEDS ORDERED: PROMETHAZINE 25 MG TAB PO PRN (23:13)
[2020-09-17] MEDS ORDERED: NON-FORMULARY EACH (Albuterol Sulfate [Proair Respiclick] 90 MCG Aer.Pow.Ba) IH PRN (23:13)
[2020-09-17] MEDS ORDERED: oxyCODONE /ACETAMINOPHEN 5-325MG TAB PO PRN (23:14)
[2020-09-17] MEDS ORDERED: ACETAMINOPHEN 325 MG TAB PO PRN (23:14)
[2020-09-17] MEDS ORDERED: METOCLOPRAMIDE 10 MG/2 ML INJ IV PRN (23:14)
[2020-09-17] MEDS ORDERED: HYDROmorphone 1 MG/1 ML INJ IV PRN (23:14)
[2020-09-17] MEDS ORDERED: ONDANSETRON 4 MG/2 ML INJ IV PRN (23:14)
[2020-09-17] MEDS ORDERED: ALBUTEROL 2.5 MG/3 ML NEBU IH PRN (23:27)
[2020-09-17] MEDS ORDERED: HEPARIN 5,000 UNIT/1 ML VIAL SUB-Q SCH (23:45)
[2020-09-18] MEDS: HEPARIN 5,000 UNIT/1 ML VIAL SUB-Q SCH ×2 (00:32→10:55)
[2020-09-18 06:07] LABS: Basophils % (Auto) 0.7 % (0.0-1.8); Eosinophils # (Auto) 0.2 K/mm3 (0.0-0.4); Eosinophils % (Auto) 3.8 % (0.0-4.3); Hematocrit 35.8 % (30.3-42.9); Hemoglobin 12.4 gm/dl (10.1-14.3); Lymphocytes # (Auto) 2.1 K/mm3 (1.2-5.4); Lymphocytes % (Auto) 38.5 % (13.4-35.0); Mean Corpuscular HGB Conc 35 % (30-34); Mean Corpuscular Volume 93 fl (79-97); Monocytes # (Auto) 0.7 K/mm3 (0.0-0.8); Monocytes % (Auto) 12.8 % (0.0-7.3); Platelet Count 249 K/mm3 (140-440); Red Blood Count 3.87 M/mm3 (3.65-5.03); Red Cell Distribution Width 13.3 % (13.2-15.2)
[2020-09-18] MEDS: LEVOTHYROXINE 125 MCG TAB PO SCH (06:17)
[2020-09-18 06:31] LABS: Alanine Aminotransferase 12 units/L (7-56); Albumin 3.6 g/dL (3.9-5); Blood Urea Nitrogen 18 mg/dL (7-17); Calcium 8.6 mg/dL (8.4-10.2); Hemolysis Index 3
[2020-09-18 06:41] LABS: BUN/Creatinine Ratio 30
[2020-09-18] MEDS ORDERED: REGADENOSON 0.4 MG/5 ML INJ IV ONE (08:27)
[2020-09-18] MEDS: INSULIN LISPRO 100 UNIT/ML SUB-Q SCH ×4 (08:49→22:26)
[2020-09-18] MEDS: PANTOPRAZOLE 40 MG TAB PO SCH (08:50)
[2020-09-18] MEDS ORDERED: NON-FORMULARY EACH (Sitagliptin Phosphate [Januvia] 50 MG Tablet) PO SCH (10:00)
[2020-09-18] MEDS: metFORMIN 500 MG TAB PO SCH ×2 (10:06→17:31)
[2020-09-18] MEDS: ASPIRIN EC 81 MG TAB PO SCH (10:53)
[2020-09-18] MEDS: CLOPIDOGREL 75 MG TAB PO SCH (10:54)
[2020-09-18] MEDS: LINAGLIPTIN 5 MG TAB PO SCH (10:54)
[2020-09-18] MEDS: POTASSIUM CHLORIDE ER 10 MEQ TAB PO SCH (10:54)
[2020-09-18] MEDS: hydroCHLOROthiazide 25 MG TAB PO SCH (10:54)
[2020-09-18] MEDS: NICOTINE 14 MG/24 HR PATCH TD SCH (10:55)
[2020-09-18] MEDS: NITROGLYCERIN 0.4 MG TAB SUBL SL PRN ×2 (12:39→12:45)
[2020-09-18] MEDS ORDERED: GABAPENTIN 300 MG CAP PO SCH (22:00)
[2020-09-19] MEDS: HEPARIN 5,000 UNIT/1 ML VIAL SUB-Q SCH ×2 (06:19→09:24)
[2020-09-19] MEDS: LEVOTHYROXINE 125 MCG TAB PO SCH (06:20)
[2020-09-19] MEDS: INSULIN LISPRO 100 UNIT/ML SUB-Q SCH ×2 (08:00→12:19)
[2020-09-19] MEDS: CLOPIDOGREL 75 MG TAB PO SCH (09:25)
[2020-09-19] MEDS: PANTOPRAZOLE 40 MG TAB PO SCH (09:25)
[2020-09-19] MEDS: LINAGLIPTIN 5 MG TAB PO SCH (09:26)
[2020-09-19] MEDS: NICOTINE 14 MG/24 HR PATCH TD SCH (09:26)
[2020-09-19] MEDS: hydroCHLOROthiazide 25 MG TAB PO SCH (09:26)
[2020-09-19] MEDS: ASPIRIN EC 81 MG TAB PO SCH (09:26)
[2020-09-19] MEDS: POTASSIUM CHLORIDE ER 10 MEQ TAB PO SCH (09:27)
[2020-09-19] MEDS: metFORMIN 500 MG TAB PO SCH (09:27)
[2020-09-19 12:54] VITALS: BP 124/60
== END 2020-09-19 13:13 | disposition home or self-care (01) ==
LOC: ED 08:30 → 4A 12:52
PROVIDERS: ADMIT Internal Medicine; ATTEND Internal Medicine
DX: I24.9 Acute ischemic heart disease, unspecified (principal); I25.10 Atherosclerotic heart disease of native coronary artery without angina pectoris; I10 Essential (primary) hypertension; E03.9 Hypothyroidism, unspecified; E11.9 Type 2 diabetes mellitus without complications; K21.9 Gastro-esophageal reflux disease without esophagitis; M19.90 Unspecified osteoarthritis, unspecified site; I73.9 Peripheral vascular disease, unspecified; E78.2 Mixed hyperlipidemia; J44.9 Chronic obstructive pulmonary disease, unspecified; I25.2 Old myocardial infarction; Z95.1 Presence of aortocoronary bypass graft; Z90.49 Acquired absence of other specified parts of digestive tract; Z98.51 Tubal ligation status; Z79.899 Other long term (current) drug therapy; Z98.890 Other specified postprocedural states; Z87.891 Personal history of nicotine dependence; Z79.82 Long term (current) use of aspirin; Z79.4 Long term (current) use of insulin
CPT/HCPCS: 36415; 71046; 78452; 80053; 81001; 82962; 83036; 83880; 84484; 85025; 85610; 85730; 93005; 93017; 93306; 96372; 96374; 99285; A9270; A9502; G0378; J1644; J2405; J2785; J1815

== ENCOUNTER 2021-06-04 06:23 | Emergency (ER) | payer MEDICARE ==
--- NOTE | 2021-06-04 09:32 | Emergency Department Report ---
ED General Adult HPI - General Chief complaint: Abdominal Pain Stated complaint: LUMP ON LT SIDE WITH PAIN Time Seen by Provider: 06/04/21 09:17 Source: patient Mode of arrival: Ambulatory Limitations: No Limitations - History of Present Illness Initial comments: 65-year-old -Tog[place] female patient presents with complaints of left- sided abdominal and flank pain x5 days. She also reports her urine appears cloudy and foamy. Past medical history includes diabetes, hypertension, and thyroid disease. She denies any nausea/vomiting/diarrhea, melena/hematochezia, dysuria/hematuria, vaginal discharge, or dyspareunia. She does admit to urinary frequency. She rates her current pain as a 6/10 in severity. No fever/chills/sweats, chest pain, shortness of breath, or cough per patient - Related Data Previous Rx's Medication Instructions Recorded Last Taken Type Albuterol Sulfate [Proair 90 mcg IH Q4HR PRN #1 09/02/19 09/16/20 19:00 Rx Respiclick] Potassium Chloride [K-Dur] 10 meq PO QDAY #30 tablet 09/02/19 01/09/20 Rx 10 meq hydroCHLOROthiazide [HCTZ] 25 mg PO DAILY #30 tablet 09/02/19 09/16/20 14:00 Rx Pantoprazole [Protonix] 40 mg PO QDAY #30 tablet 01/10/20 09/17/20 09:00 Rx Promethazine [Phenergan SUPPOS] 25 mg FL Q6HR PRN #20 supp.rect 01/11/20 Unknown Rx Promethazine [Phenergan] 25 mg PO Q6HR PRN #20 tab 01/11/20 Unknown Rx Aspirin EC [Halfprin EC] 81 mg PO DAILY #100 tablet 09/19/20 Unknown Rx AtorvaSTATin [Lipitor] 40 mg PO QHS #30 tablet 09/19/20 Unknown Rx Clopidogrel [Plavix] 75 mg PO QDAY #30 tablet 09/19/20 Unknown Rx Gabapentin 300 mg PO BID #60 capsule 09/19/20 Unknown Rx ISOSORBIDE MONOnitrate [Imdur ER] 30 mg PO QDAY #30 tablet 09/19/20 Unknown Rx Levothyroxine [Synthroid] 125 mcg PO DAILY@0600 #30 tablet 09/19/20 Unknown Rx Nicotine [Habitrol] 14 mg TD QDAY #14 patch 09/19/20 Unknown Rx Sitagliptin Phosphate [Januvia] 100 mg PO DAILY #30 09/19/20 Unknown Rx Valsartan 80 mg PO QDAY 30 Days #30 tablet 09/19/20 Unknown Rx metFORMIN [Glucophage] 1,000 mg PO BIDDIAB #60 tablet 09/19/20 Unknown Rx Acetaminophen/Codeine [Tylenol 1 tab PO Q6H PRN #6 tab 06/04/21 Unknown Rx /Codeine # 3 tab] Ondansetron [Zofran Odt] 4 mg PO Q8HR PRN #10 tab.rapdis 06/04/21 Unknown Rx Allergies Allergy/AdvReac Type Severity Reaction Status Date / Time lisinopril Allergy Unknown Verified 09/17/20 12:01 metoprolol Allergy Unknown Verified 09/17/20 12:01 tramadol Allergy Unknown Verified 09/17/20 12:01 ED Review of Systems ROS: Stated complaint: LUMP ON LT SIDE WITH PAIN Other details as noted in HPI Constitutional: denies: chills, fever, malaise ENT: denies: throat pain Respiratory: denies: cough, shortness of breath Cardiovascular: denies: chest pain Gastrointestinal: abdominal pain. denies: nausea, vomiting, diarrhea, constipation Genitourinary: frequency. denies: urgency, dysuria, hematuria, discharge, abnormal menses Musculoskeletal: denies: back pain Skin: denies: rash, lesions Neurological: denies: headache, numbness, paresthesias ED Past Medical Hx - Past Medical History Previous Medical History?: Yes Hx Hypertension: Yes Hx Heart Attack/AMI: Yes Hx Congestive Heart Failure: No Hx Diabetes: Yes Hx GERD: Yes Hx Arthritis: Yes Hx Asthma: No Hx COPD: Yes Hx HIV: No Additional medical history: THYROID - Surgical History Past Surgical History?: Yes Hx Coronary Stent: Yes Hx Cholecystectomy: Yes Additional Surgical History: Tubal ligation, Carpal Tunnel - Social History Smoking Status: Current Some Day Smoker - Medications Home Medications: Home Medications Medication Instructions Recorded Confirmed Last Taken Type Albuterol Sulfate [Proair 90 mcg IH Q4HR PRN #1 09/02/19 09/17/20 09/16/20 19:00 Rx Respiclick] Potassium Chloride [K-Dur] 10 meq PO QDAY #30 tablet 09/02/19 09/17/20 01/09/20 Rx 10 meq hydroCHLOROthiazide [HCTZ] 25 mg PO DAILY #30 tablet 09/02/19 09/17/20 09/16/20 14:00 Rx Pantoprazole [Protonix] 40 mg PO QDAY #30 tablet 01/10/20 09/17/20 09/17/20 09:00 Rx Promethazine [Phenergan SUPPOS] 25 mg FL Q6HR PRN #20 supp.rect 01/11/20 09/17/20 Unknown Rx Promethazine [Phenergan] 25 mg PO Q6HR PRN #20 tab 01/11/20 09/17/20 Unknown Rx Aspirin EC [Halfprin EC] 81 mg PO DAILY #100 tablet 09/19/20 Unknown Rx AtorvaSTATin [Lipitor] 40 mg PO QHS #30 tablet 09/19/20 Unknown Rx Clopidogrel [Plavix] 75 mg PO QDAY #30 tablet 09/19/20 Unknown Rx Gabapentin 300 mg PO BID #60 capsule 09/19/20 Unknown Rx ISOSORBIDE MONOnitrate [Imdur ER] 30 mg PO QDAY #30 tablet 09/19/20 Unknown Rx Levothyroxine [Synthroid] 125 mcg PO DAILY@0600 #30 tablet 09/19/20 Unknown Rx Nicotine [Habitrol] 14 mg TD QDAY #14 patch 09/19/20 Unknown Rx Sitagliptin Phosphate [Januvia] 100 mg PO DAILY #30 09/19/20 Unknown Rx Valsartan 80 mg PO QDAY 30 Days #30 tablet 09/19/20 Unknown Rx metFORMIN [Glucophage] 1,000 mg PO BIDDIAB #60 tablet 09/19/20 Unknown Rx Acetaminophen/Codeine [Tylenol 1 tab PO Q6H PRN #6 tab 06/04/21 Unknown Rx /Codeine # 3 tab] Ondansetron [Zofran Odt] 4 mg PO Q8HR PRN #10 tab.rapdis 06/04/21 Unknown Rx ED Physical Exam - General Limitations: No Limitations General appearance: alert, in no apparent distress - Head Head exam: Present: atraumatic, normocephalic - Neck Neck exam: Present: normal inspection - Respiratory Respiratory exam: Present: normal lung sounds bilaterally. Absent: respiratory distress - Cardiovascular Cardiovascular Exam: Present: regular rate, normal rhythm - GI/Abdominal GI/Abdominal exam: Present: soft, tenderness (Left side of abdomen, left lower quadrant), normal bowel sounds. Absent: distended, guarding, rebound, rigid - Back Exam Back exam: Present: full ROM. Absent: CVA tenderness (R), CVA tenderness (L), paraspinal tenderness, vertebral tenderness - Neurological Exam Neurological exam: Present: alert, oriented X3, normal gait - Psychiatric Psychiatric exam: Present: normal affect, normal mood - Skin Skin exam: Present: warm, dry, intact, normal color. Absent: rash ED Course Vital Signs 06/04/21 09:02 Temperature 98.4 F Pulse Rate 80 Respiratory 16 Rate Blood Pressure 175/85 [Left] O2 Sat by Pulse 97 Oximetry ED Medical Decision Making - Lab Data Result diagrams: 06/04/21 11:09 06/04/21 11:09 Lab Results 06/04/21 06/04/21 06/04/21 Range/Units 11:09 11:09 Unknown WBC 7.3 (4.5-11.0) K/mm3 RBC 4.18 (3.65-5.03) M/mm3 Hgb 12.7 (10.1-14.3) gm/dl Hct 38.9 (30.3-42.9) % MCV 93 (79-97) fl MCH 30 (28-32) pg MCHC 33 (30-34) % RDW 14.4 (13.2-15.2) % Plt Count 263 (140-440) K/mm3 Lymph % (Auto) 26.6 (13.4-35.0) % [place] % (Auto) 9.8 H (0.0-7.3) % Eos % (Auto) 2.1 (0.0-4.3) % Baso % (Auto) 0.9 (0.0-1.8) % Lymph # (Auto) 1.9 (1.2-5.4) K/mm3 [place] # (Auto) 0.7 (0.0-0.8) K/mm3 Eos # (Auto) 0.1 (0.0-0.4) K/mm3 Baso # (Auto) 0.1 (0.0-0.1) K/mm3 Seg Neutrophils % 60.6 (40.0-70.0) % Seg Neutrophils # 4.4 (1.8-7.7) K/mm3 Sodium 134 L (137-145) mmol/L Potassium 4.8 (3.6-5.0) mmol/L Chloride 103.5 (98-107) mmol/L Carbon Dioxide 19 L (22-30) mmol/L Anion Gap 16 mmol/L BUN 15 (7-17) mg/dL Creatinine 0.6 (0.6-1.2) mg/dL Estimated GFR > 60 ml/min BUN/Creatinine Ratio 25 % Glucose 147 H (65-100) mg/dL Calcium 8.8 (8.4-10.2) mg/dL Total Bilirubin 0.30 (0.1-1.2) mg/dL AST 19 (5-40) units/L ALT 12 (7-56) units/L Alkaline Phosphatase 75 (35-129) units/L Total Protein 7.1 (6.3-8.2) g/dL Albumin 3.3 L (3.9-5) g/dL Albumin/Globulin Ratio 0.9 % Lipase 33 (13-60) units/L Urine Color Yellow (Yellow) Urine Turbidity Clear (Clear) Urine pH 5.0 (5.0-7.0) Ur Specific [place] 1.026 (1.003-1.030) Urine Protein <15 mg/dl (Negative) mg/dL Urine Glucose (UA) Neg (Negative) mg/dL Urine Ketones Neg (Negative) mg/dL Urine Blood Neg (Negative) Urine Nitrite Neg (Negative) Urine Bilirubin Neg (Negative) Urine Urobilinogen < 2.0 (<2.0) mg/dL Ur Leukocyte Esterase Neg (Negative) Urine WBC (Auto) 4.0 (0.0-6.0) /HPF Urine RBC (Auto) < 1.0 (0.0-6.0) /HPF U Epithel Cells (Auto) 1.0 (0-13.0) /HPF Urine Mucus 1+ /HPF - Radiology Data Radiology results: report reviewed CT ABDOMEN AND PELVIS WITH CONTRAST HISTORY: left abdominal pain and flank pain omni 300 100 ml COMPARISON: None. TECHNIQUE: Axial CT images were obtained through the abdomen and pelvis after 100 cc of IV contrast. Sagittal and coronal reformatted images. All CT scans at this location are performed using CT dose reduction for ALARA by means of automated exposure control. FINDINGS: CT ABDOMEN: Lung Bases: Clear. Liver: No significant abnormality. Biliary: Cholecystectomy. No biliary dilatation. Spleen: No significant abnormality. Unenlarged. Pancreas: 1.2 cm cyst is identified in the pancreatic tail. There is a second subcentimeter cyst in the pancreatic tail contains tiny calcifications. The remainder the pancreas is unremarkable. Adrenals: No significant abnormality. Kidneys: No significant abnormality. Lymphatics: No lymphadenopathy. Vasculature: Moderate diffuse atherosclerotic disease in the abdominal aorta and iliac arteries. Bilateral common iliac artery and left external iliac artery stents are in position. No aneurysm or high-grade stenosis. Bowel/Peritoneum: There is moderate diverticulosis of the colon. The remaining bowel loops are unremarkable. No evidence for acute inflammation or obstruction. No obvious mass. Normal appendix. CT PELVIS: : The bladder is mostly empty and unremarkable. The uterus and ovaries are within normal limits. Osseous Structures: Mild lumbar spondylosis. Additional Findings: Small umbilical hernia containing fat. IMPRESSION: No acute inflammatory process is appreciated. Diverticulosis of the colon. Pancreatic tail cysts as described. Current guidelines recommend follow-up in one year. Cholecystectomy. - Medical Decision Making 65-year-old -[place]og[place] female patient presents with complaints of left- sided abdominal and flank pain x5 days. She also reports her urine appears cloudy and foamy. Past medical history includes diabetes, hypertension, and thyroid disease. She denies any nausea/vomiting/diarrhea, melena/hematochezia, dysuria/hematuria, vaginal discharge, or dyspareunia. She does admit to urinary frequency. She rates her current pain as a 6/10 in severity. No fever/chills/sweats, chest pain, shortness of breath, or cough per patient. Guille quarles states she has had recurrent left-sided abdominal pain for many months now and that the area sometimes appear swollen. She has not seen GI for this. Mild hyponatremia noted on CMP. Labs are otherwise negative for any acute abnormalities. No acute abnormalities are seen on CT abdomen. Patient's vitals are within normal limits and she is nontoxic-appearing. She is stable for discharge home. Recommend follow-up with GI for further evaluation of recurrent abdominal pain within 1 to 2 weeks. Patient to follow-up with her primary care doctor within 3 to 5 days. Strict return precautions were discussed in detail with patient who verbalized understanding Critical care attestation.: If time is entered above; I have spent that time in minutes in the direct care of this critically ill patient, excluding procedure time. ED Disposition Clinical Impression: Abdominal pain, Pancreatic calcification, Diverticulosis Disposition: 01 HOME / SELF CARE / HOMELESS Is pt being admited?: No Condition: Stable Instructions: Abdominal Pain (ED), Abdominal Pain, Adult, [id number], Diverticulosis Prescriptions: Acetaminophen/Codeine [Tylenol /Codeine # 3 tab] 1 tab PO Q6H PRN #6 tab PRN Reason: Pain , Severe (7-10) Ondansetron [Zofran Odt] 4 mg PO Q8HR PRN #10 tab.rapdis PRN Reason: Nausea Referrals: GAGAN MCDOWELL MD [Primary Care Provider] - 3-5 Days [facility] [Provider Group] - 3-5 Days Forms: Work/School Release Form(ED)
[2021-06-04 10:55] LABS: Bilirubin,Urine NEG (Negative); Blood,Urine NEG (Negative); Color,Urine Yellow (Yellow); Mucus,Urine 1+ /HPF; Protein,Urine <15 mg/dL mg/dL (Negative); RBC,Urine < 1.0 /HPF (0.0-6.0); Urobilinogen,Urine < 2.0 mg/dL (<2.0)
[2021-06-04 11:39] LABS: Basophils # (Auto) 0.1 K/mm3 (0.0-0.1); Basophils % (Auto) 0.9 % (0.0-1.8); Eosinophils # (Auto) 0.1 K/mm3 (0.0-0.4); Eosinophils % (Auto) 2.1 % (0.0-4.3); Hematocrit 38.9 % (30.3-42.9); Hemoglobin 12.7 gm/dl (10.1-14.3); Lymphocytes # (Auto) 1.9 K/mm3 (1.2-5.4); Lymphocytes % (Auto) 26.6 % (13.4-35.0); Mean Corpuscular HGB Conc 33 % (30-34); Mean Corpuscular Volume 93 fl (79-97); Monocytes # (Auto) 0.7 K/mm3 (0.0-0.8); Monocytes % (Auto) 9.8 % (0.0-7.3); Platelet Count 263 K/mm3 (140-440); Red Blood Count 4.18 M/mm3 (3.65-5.03); Red Cell Distribution Width 14.4 % (13.2-15.2)
[2021-06-04 11:47] LABS: Alanine Aminotransferase 12 units/L (7-56); Albumin 3.3 g/dL (3.9-5); Blood Urea Nitrogen 15 mg/dL (7-17); Calcium 8.8 mg/dL (8.4-10.2); Hemolysis Index 154
--- NOTE | 2021-06-04 11:47 | Cat Scan Report ---
CT ABDOMEN AND PELVIS WITH CONTRAST HISTORY: left abdominal pain and flank pain omni 300 100 ml COMPARISON: None. TECHNIQUE: Axial CT images were obtained through the abdomen and pelvis after 100 cc of IV contrast. Sagittal and coronal reformatted images. All CT scans at this location are performed using CT dose re duction for ALARA by means of automated exposure control. FINDINGS: CT ABDOMEN: Lung Bases: Clear. Liver: No significant abnormality. Biliary: Cholecystectomy. No biliary dilatation. Spleen: No significant abnormality. Unenlarged. Pancreas: 1.2 cm cyst is identified in the pancreatic tail. There is a second subcentimeter cyst in t he pancreatic tail contains tiny calcifications. The remainder the pancreas is unremarkable. Adrenals: No significant abnormality. Kidneys: No significant abnormality. Lymphatics: No lymphadenopathy. Vasculature: Moderate diffuse atherosclerotic disease in the abdominal aorta and iliac arteries. Bila teral common iliac artery and left external iliac artery stents are in position. No aneurysm or high- grade stenosis. Bowel/Peritoneum: There is moderate diverticulosis of the colon. The remaining bowel loops are unrema rkable. No evidence for acute inflammation or obstruction. No obvious mass. Normal appendix. CT PELVIS: : The bladder is mostly empty and unremarkable. The uterus and ovaries are within normal limits. Osseous Structures: Mild lumbar spondylosis. Additional Findings: Small umbilical hernia containing fat. IMPRESSION: No acute inflammatory process is appreciated. Diverticulosis of the colon. Pancreatic tail cysts as described. Current guidelines recommend follow-up in one year. Cholecystectomy. Signer Name: Gary Harris Jr, MD Signed: 06/04/2021 11:43 AM Workstation Name: [id number]
[2021-06-04 11:51] LABS: BUN/Creatinine Ratio 25
[2021-06-04] MEDS ORDERED: HYDROcodone/ACETAMINOPHEN 5-325 MG TAB PO ONE (12:57)
[2021-06-04] MEDS ORDERED: SODIUM CHLORIDE 0.9% 1000 ML 1,000 ML IV ONE (12:58)
[2021-06-04 14:56] VITALS: BP 156/86
== END 2021-06-04 14:56 | disposition home or self-care (01) ==
LOC: ED 06:23
DX: R10.9 Unspecified abdominal pain (principal); K86.89 Other specified diseases of pancreas; K57.90 Diverticulosis of intestine, part unspecified, without perforation or abscess without bleeding; I10 Essential (primary) hypertension; E11.8 Type 2 diabetes mellitus with unspecified complications; F17.200 Nicotine dependence, unspecified, uncomplicated; Z90.49 Acquired absence of other specified parts of digestive tract; Z88.8 Allergy status to other drugs, medicaments and biological substances; Z88.5 Allergy status to narcotic agent
CPT/HCPCS: 36415; 74177; 80053; 81001; 83690; 85025; 99284; Q9967

== ENCOUNTER 2021-09-20 00:58 | Emergency (ER) | payer MEDICARE ==
[2021-09-20 01:42] VITALS: BP 161/85
[2021-09-20 02:12] LABS: Basophils # (Auto) 0.1 K/mm3 (0.0-0.1); Basophils % (Auto) 1.4 % (0.0-1.8); Eosinophils # (Auto) 0.2 K/mm3 (0.0-0.4); Eosinophils % (Auto) 2.4 % (0.0-4.3); Hematocrit 36.9 % (30.3-42.9); Hemoglobin 12.5 gm/dl (10.1-14.3); Lymphocytes # (Auto) 2.9 K/mm3 (1.2-5.4); Lymphocytes % (Auto) 36.4 % (13.4-35.0); Mean Corpuscular HGB Conc 34 % (30-34); Mean Corpuscular Volume 91 fl (79-97); Monocytes # (Auto) 0.7 K/mm3 (0.0-0.8); Monocytes % (Auto) 8.4 % (0.0-7.3); Platelet Count 263 K/mm3 (140-440); Red Blood Count 4.03 M/mm3 (3.65-5.03); Red Cell Distribution Width 13.9 % (13.2-15.2)
[2021-09-20 02:35] LABS: Alanine Aminotransferase 16 units/L (7-56); Albumin 3.8 g/dL (3.9-5); Blood Urea Nitrogen 19 mg/dL (7-17); Calcium 8.9 mg/dL (8.4-10.2); Hemolysis Index 4
[2021-09-20 02:43] LABS: BUN/Creatinine Ratio 27
--- NOTE | 2021-09-20 02:43 | XRay Report ---
CHEST 2 VIEWS INDICATION / CLINICAL INFORMATION: CHEST PAIN. COMPARISON: 09/17/2020 FINDINGS: SUPPORT DEVICES: None. HEART / MEDIASTINUM: No significant abnormality. LUNGS / PLEURA: No significant pulmonary or pleural abnormality. No pneumothorax. ADDITIONAL FINDINGS: No significant additional findings. IMPRESSION: 1. No acute findings. Signer Name: Jesús Gaspar MD Signed: 09/20/2021 2:38 AM Workstation Name: [id number]
--- NOTE | 2021-09-20 12:15 | Electrocardiograph Report ---
[facility] Test Date: 2021-09-20 Test Time: 01:05:11 Pat Name: YANA JORGE Department: Room: Gender: F Beauty Director: DEBRA : 1955 Requested By: ED DOC Order Number: [id number] Reading MD: Kamla Borrego Measurements Intervals [place] Rate: 82 P: -20 WI: 114 QRS: -2 QRSD: 85 T: 29 QT: 397 QTc: 464 Interpretive Statements Sinus rhythm Compared to ECG 09/19/2020 09:12:35 No significant change Electronically Signed On 09-20-2021 12:14:57 EDT by Kamla Borrego
== END 2021-09-20 07:00 | disposition left against medical advice (07) ==
LOC: ED 00:58
DX: M79.601 Pain in right arm (principal); Z53.21 Procedure and treatment not carried out due to patient leaving prior to being seen by health care provider
CPT/HCPCS: 36415; 71046; 80053; 84484; 85025; 93005